=== PATIENT | male | born 1940 | race Caucasian/White ===

== ENCOUNTER 2016-07-04 07:43 | Inpatient (IN) | payer MEDICARE ==
[~2016-07-04] VITALS: Ht 177.8 cm; Wt 100.0 kg
[~2016-07-04 07:43] MED LIST: ATOR40TA16 PO; CART240C PO; CORE25TA PO; COZA25TA PO; FURO1TAB62 PO; GABA100C4 PO; LANTUS2P SQ; NOVOLOGP2 SQ; WARF-23 PO
[2016-07-04] MEDS ORDERED: METOPROLOL TARTRATE 25 MG TAB PO PRN ×2 (08:45→09:30)
[2016-07-04] MEDS ORDERED: SODIUM CHLORID 0.9% 500 ML IV SCH ×2 (08:45→09:30)
[2016-07-04] MEDS ORDERED: INSULIN HUMAN REGULAR 1,000 UNITS/10 ML VIAL SQ PRN ×2 (08:45→09:30)
[2016-07-04] MEDS ORDERED: LACTATED RINGER'S 1000 ML IV SCH (08:45)
[2016-07-04] MEDS ORDERED: ceFAZolin 1,000 MG/NS 100 ML IV SCH ×2 (08:45)
[2016-07-04 08:47] VITALS: BP 142/74; PULSE 62; RESP 22; TEMP 98; O2SAT 93
--- NOTE | 2016-07-04 08:59 | RADRPT ---
EXAM DATE/TIME: 07/04/2016 08:35 [place] COMPARISON: No previous studies available for comparison. INDICATIONS : Evaluate for pneumonia, pneumothorax, and communicable disease. Preop for popliteal bypass. MEDICAL HISTORY : Hypertension. Myocardial infarction. Diabetic. BPH. PVD. Hyperlipidemia. Afib. CAD. SURGICAL HISTORY : Tonsillectomy. Right hip arthroplasty. Left below knee amputation. Right pop posterior tibial dax stamosis stenosis. Right knee arthroplasty. ENCOUNTER: Initial ACUITY: 1 day PAIN SCORE: 0/10 LOCATION: Bilateral chest FINDINGS: A single portable frontal view the chest shows blunting of the costophrenic angles bilaterally with b ibasilar parenchymal opacities. Heart is at the upper limits of normal in terms of size. Aorta is stepan cified. Bony structures are unremarkable. CONCLUSION: Small bowel pleural effusions and bibasilar infiltrates. Pulmonary edema suspected. He Duran Jr., MD on July 04, 2016 at 8:56 Board Certified Radiologist. This report was verified electronically.
[2016-07-04] MEDS ORDERED: FUROSEMIDE 20 MG/2 ML VIAL ONE (09:08)
[2016-07-04 09:18] LABS: AUTOMATED NEUTROPHIL # 5.3 TH/MM3 (1.8-7.7); BASOPHIL # 0.1 TH/MM3 (0-0.2); BASOPHIL % 0.9 % (0.0-2.0); EOSINOPHIL # 0.2 TH/MM3 (0-0.4); HEMATOCRIT 31.9 % (39.0-51.0); HEMO FLAGS DIFF FINAL; LYMPH % 12.2 % (9.0-44.0); LYMPHOCYTE # 0.9 TH/MM3 (1.0-4.8); MEAN CELL VOLUME 97.8 FL (80.0-100.0); MEAN CORPUSCULAR HEMOGLOBIN 33.1 PG (27.0-34.0); MEAN CORPUSCULAR HGB CONC 33.8 % (32.0-36.0); MONO % 9.6 % (0.0-8.0); NEUT % 74.3 % (16.0-70.0); PLATELET COUNT 163 TH/MM3 (150-450); RED BLOOD COUNT 3.27 MIL/MM3 (4.50-5.90); RED CELL DISTRIBUTION WIDTH 15.3 % (11.6-17.2); WHITE BLOOD COUNT 7.2 TH/MM3 (4.0-11.0)
[2016-07-04] MEDS ORDERED: PROPOFOL 200 MG/20 ML AMP IV ONE (09:21)
[2016-07-04] MEDS: LACTATED RINGER'S 1000 ML IV SCH (09:24)
[2016-07-04 09:29] LABS: APTT (PATIENT) 34.3 SEC (24.3-30.1); INTERNATIONAL NORMALIZED RATIO 1.3 RATIO; PROTHROMBIN TIME - PATIENT 14.2 SEC (9.8-11.6)
[2016-07-04] MEDS ORDERED: FUROSEMIDE 20 MG/2 ML VIAL IV PUSH ONE (09:30)
[2016-07-04 09:40] LABS: BICARBONATE 29.8 MEQ/L (21.0-32.0); POTASSIUM 4.5 MEQ/L (3.5-5.1)
[2016-07-04] MEDS ORDERED: KETAMINE HCL 500 MG/5 ML VIAL ONE (10:45)
[2016-07-04] MEDS ORDERED: MIDAZOLAM HCL 2 MG/2 ML VIAL ONE (10:45)
[2016-07-04] MEDS ORDERED: HEPARIN SODIUM - IV 10,000 UNITS/10 ML VIAL ONE (10:59)
[2016-07-04] MEDS ORDERED: HEPARIN SODIUM - SQ 10,000 UNITS/ML VIAL ONE (10:59)
[2016-07-04] MEDS ORDERED: BUPIVACAINE/EPINEPHRINE 0.5% PF 30 ML VIAL ONE (10:59)
--- NOTE | 2016-07-04 11:20 | EKG ---
Date Performed: 07/04/2016 Time Performed: 08:31:00 PTAGE: 76 years EKG: ATRIAL FIBRILLATION ABNORMAL RHYTHM ECG PREVIOUS TRACING : 07/31/2007 23.25 DOCTOR: Jessee Mcfarlane Interpretating Date/Time 07/04/2016 11:18:01
--- NOTE | 2016-07-04 13:26 | MB ---
cc: TOMMY TRAN MD DATE OF CONSULTATION 07/04/2016 INDICATION Congestive heart failure. HISTORY OF PRESENT ILLNESS This is a very nice 76-year-old gentleman who I follow in the outpatient setting. He has a history of hypertension, hyperlipidemia, diabetes, peripheral arterial disease, chronic renal insufficiency, atrial fibrillation, COPD, diabetes who presents electively for anticipated angioplasty of a failing right pop-tib bypass. He has a left dqbay-xpd-hili amputation. He follows with Dr. Page in the outpatient setting. His is at the bedside to corroborate history. The patient notes that he has been having progressive shortness of breath over the course of the past few weeks. He has had significant weight gain, water retention, abdominal distension. He has been unable to lie flat at night. He has been sleeping in a chair. He did not sleep at all last night. He has not increased his diuretic dose. He has a history of SULFA ALLERGIES. He is intolerant of Lasix or Bumex. He is on torsemide as an outpatient. He has a prior echocardiogram, recently done in May which shows preserved ejection fractions and diastolic dysfunction, mild to maybe moderate valvular heart disease. His creatinine today was 2.74. As the procedure began and he was given the anesthetic, he desaturated rapidly and the procedure was cancelled. He is now in the Post-Anesthesia Care Unit, sitting up, more comfortable but still short of breath. He had his last stress test in 2016 in February which was unremarkable. PAST MEDICAL HISTORY 1. Chronic kidney disease. 2. Diabetes. 3. Hypertension. 4. Diastolic heart failure. 5. Peripheral vascular disease. 6. Atrial fibrillation. 7. Coronary disease. 8. COPD. 9. Left ngsrz-dcb-hcot amputation. 10. Prior PCI. 11. Right popliteal-tibial bypass. 12. Left popliteal-dorsalis pedis bypass. 13. Hernia repair. 14. Tonsillectomy. 15. Right hip arthroplasty. MEDICATIONS See med reconciliation. SOCIAL HISTORY Has a previous heavy alcohol use. Social drinker now. Denies any current tobacco use. Prior smoker. No drug use. REVIEW OF SYSTEMS A 12-point review of systems was performed and is negative unless otherwise noted in the History Of Present Illness. FAMILY HISTORY Unremarkable. No early coronary disease or sudden cardiac . PHYSICAL EXAMINATION VITAL SIGNS: Temperature is 97, heart rate 62, blood pressure 127/75 mmHg, sating 97% of 3 liters nasal cannula. IN GENERAL: He is alert, oriented x 3, in minimal distress. HEENT: Exam shows pupils reactive to light and accommodation. Extraocular movements are intact. NECK: Jugular veins are distended to the level of the mandible. LUNGS: Clear to auscultation bilaterally. Bibasilar crackles. CARDIOVASCULAR EXAM: Irregular regular rhythm, 1/6 systolic murmur. No rubs or gallops. ABDOMINAL EXAM: Nontender, distended. EXTREMITIES: 1+ edema. No clubbing or cyanosis. NEUROLOGIC: Cranial nerves intact. Motor and sensory grossly intact. LABORATORY DATA WBC 7.3, hemoglobin 10.8, platelet count 163. INR is 1.3. Sodium 140, potassium 4.5, BUN is 58, creatinine is 2.74. BNP is 300. CHEST X-RAY Bibasilar infiltrates/effusions, pulmonary edema. ASSESSMENT 1. Diastolic heart failure. 2. Chronic renal insufficiency. 3. Atrial fibrillation. 4. Diabetes. 5. Peripheral arterial disease. 6. Atrial fibrillation. PLAN The patient has significant weight gain, water retention with elevated jugular veins, distended abdomen, probable ascites, lower extremity edema. He is currently on diuretics as an outpatient but clearly has not had enough volume removed. His shortness of breath is more so from the kidneys than it is from his diastolic dysfunction. He has some mild to moderate valve disease but not enough to contribute to his decompensated state. His main issue is fluid removal. I am going to give him IV diuretic. Unfortunately, he is ALLERGIC TO SULFA, so we will use Ethacrynic acid IV. We will give an IV dose today, initiate an oral dose starting tomorrow. We will have to monitor his kidney function closely. It would probably be beneficial to get Nephrology involved. I think in the long run he is probably going to need hemodialysis for fluid removal at this rate. Once he is medically optimized, then we can consider proceeding forward with peripheral intervention with Dr. Page. We will continue his other cardiac meds. He will need to be admitted. I have discussed the case already with [facility] hospitalist, Dr. Mercer, who is going to come by and see him and plan for admission. MD TARUN Acosta/VALERIE /12:47 PM /1:00 PM MTDMathew
[2016-07-04] MEDS ORDERED: ETHACRYNATE SODIUM 50 MG VIAL IV PUSH ONE (13:30)
[2016-07-04] MEDS ORDERED: ETHACRYNATE SODIUM 50 MG VIAL IV ONE (13:30)
--- NOTE | 2016-07-04 16:16 | PD.CONS ---
HPI Service [facility] Hospitalists Consult Requested By Dr. Tj Page Reason for Consult Medical Management Primary Care Physician Billy Treviño Diagnoses: History of Present Illness Mr. Kruger is a pleasant 76 y/o WM with diabetes mellitus, type II, PVD and hx of left BKA, HTN, osteoarthritis, hyperlipidemia, paroxysmal atrial fibrillation on chronic anticoagulation with Coumadin, and CAD with hx of [place]. Pt was admitted to [facility] on 07/04/16 for elective CO2 angiography and potential endovascular intervention with Dr. Page for restenosis of the right popliteal anastomosis and potentially failing bypass graft. When the pt arrived today he reports that more recently he has been having progressive shortness of breath over the course of the past few weeks. He has had significant weight gain and has been unable to lie flat at night. He has been sleeping in a chair. Pt takes Torsemide 10mg po BID as an outpt as he has sulfa allergy and is intolerant to Lasix and Bumex. Previous 2D echo (06/13/16) noted preserved EF 55- 60%, grade 1 diastolic dysfunction, mild to moderate mitral regurg, and pulmonary HTN with RSVP 56mmHg. His creatinine today was 2.74 which isn't too far off from previous labs in May. Per report from the Client Support Administrator, the pt was taken to the OR for vascular intervention this morning and as the procedure began and he was given the anesthetic, he desaturated rapidly and the procedure was cancelled. Pt has been given Edecrin 80mg IV x one dose and will be continued on Edecrin 50mg po BID starting tomorrow. CXR indicated bilateral pleural effusions and pulmonary edema. [facility] hospitalist team has been consulted to help with medical management. Pt is seen in PACU. He had been on 6L via simple mask but currently is on 2-3L via NC. Review of Systems Constitutional: DENIES: Fever, Chills Respiratory: COMPLAINS OF: Shortness of breath Cardiovascular: COMPLAINS OF: Lower Extremity Edema, Orthopnea, DENIES: Chest pain, Palpitations Gastrointestinal: DENIES: Abdominal pain, Nausea, Vomiting Genitourinary: DENIES: Hematuria, Dysuria, Nocturia Musculoskeletal: DENIES: Joint pain Integumentary: DENIES: Rash Neurologic: DENIES: Headache Psychiatric: DENIES: Confusion Past Family Social History Past Medical History Peripheral vascular disease Diabetes mellitus, type II HTN Hyperlipidemia Paroxysmal atrial fibrillation on chronic anticoagulation with Coumadin Right LE common fem DVT, nonocclusive in 02/2016 CAD with hx of OK Anemia BPH Chronic diastolic CHF CKD, stage IV Hx of colon polyps Carotid artery stenosis GERD Osteoarthritis Primary open-angle glaucoma 2D echo (06/13/16) - EF 55-60% - Grade 1 diastolic dysfunction - LA mildly dilated - Mild to moderate mitral valve regurg - Aortic valve sclerosis - Moderate tricuspid regurg - Moderate pulmonary HTN with RSVP 56mmHg Past Surgical History Right total hip arthroplasty on 03/13/[address] Loyd Partial metatarsal resections, 2nd and 3rd metatarsals, right foot in 2014 Right popliteal-posterior tibial bypass in 2005 Orbital arthrectomy right posterior tibial anastomotic stenosis in 08/2013 Left BKA in 2007 Left popliteal to dorsalis pedis bypass graft, left popliteal to posterior tibial bypass using in situ greater saphenous vein in 2007 Hernia repair Right knee arthroplasty Left knee tendon repair Scrotal hernia repair Tonsillectomy Reported Medications -Gabapentin 200 Mg PO TID PRN -Warfarin 5 Mg Tab 5 Mg PO DAILY -Atorvastatin 40 Mg PO HS -Novolog Inj 12-15 Units SQ TID -Lantus Inj 10-12 Units SQ HS -Cartia Xt (Diltiazem ER 24 HR) 240 Mg PO DAILY -Cozaar 25 Mg PO HS -Coreg 25 Mg PO BID --Torsemide 10mg BID --Potassium 10meq po DAILY Allergies: Coded Allergies: Invanz (Verified Allergy, Severe, SWELLING, 07/04/16) Sulfa (Verified Allergy, Severe, EDEMA,RASH, 07/04/16) Family History Mother at age 58 from colon cancer Father with hx of prostate cancer Social History Hx of heavy alcohol use, none for the last 6-7 years Hx of tobacco use Pt lives locally with his spouse 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 HEENT: Atraumatic. Normocephalic. No temporal or scalp tenderness. No scleral icterus. Airway patent. NECK: Trachea midline, supple, nontender CARDIO: Irregularly irregular RESP: Decreased breath sounds, bibasilar crackles ABD: +BS, soft, non-tender, nondistended. EXT: Left BKA NEURO: Awake and alert. Motor and sensory grossly within normal limits. Normal speech. Laboratory Laboratory Tests Test 07/04/16 09:00 White Blood Count 7.2 Red Blood Count 3.27 Hemoglobin 10.8 Hematocrit 31.9 Mean Corpuscular Volume 97.8 Mean Corpuscular Hemoglobin 33.1 Mean Corpuscular Hemoglobin 33.8 Concent Red Cell Distribution Width 15.3 Platelet Count 163 Mean Platelet Volume 9.1 Neutrophils (%) (Auto) 74.3 Lymphocytes (%) (Auto) 12.2 Monocytes (%) (Auto) 9.6 Eosinophils (%) (Auto) 3.0 Basophils (%) (Auto) 0.9 Neutrophils # (Auto) 5.3 Lymphocytes # (Auto) 0.9 Monocytes # (Auto) 0.7 Eosinophils # (Auto) 0.2 Basophils # (Auto) 0.1 CBC Comment DIFF FINAL Differential Comment Prothrombin Time 14.2 Prothromb Time International 1.3 Ratio Activated Partial 34.3 Thromboplast Time Sodium Level 140 Potassium Level 4.5 Chloride Level 105 Carbon Dioxide Level 29.8 Anion Gap 5 Blood Urea Nitrogen 58 Creatinine 2.74 Estimat Glomerular Filtration 23 Rate Random Glucose 118 Calcium Level 8.5 B-Type Natriuretic Peptide 300 Blood Type A POSITIVE Antibody Screen NEGATIVE Result Diagram: 07/04/16 0900 07/04/16 0900 Imaging Last Impressions Chest X-Ray 07/04/16 0000 Signed Impressions: Service Date/Time: June 08:35 - CONCLUSION: Small bowel pleural effusions and bibasilar infiltrates. Pulmonary edema suspected. He Duran Jr., MD Assessment and Plan Problem List: (1) Diastolic dysfunction Status: Chronic Plan: - Pt was admitted to [facility] on 07/04/16 for elective CO2 angiography and potential endovascular intervention with Dr. Page but presented in an apparent decompensated heart failure with weight gain, increased LE edema, increased SOB, and orthopnea. - Pt takes Torsemide 10mg BID and potassium as an outpt due to intolerance to Lasix and Bumex - Cardiology is following - Pt has been given Edecrin 80mg IV x one dose and will be continued on Edecrin 50mg po BID starting tomorrow. - CXR indicated bilateral pleural effusions and pulmonary edema. - He had been on 6L via simple mask but currently is on 2-3L via NC. - Previous outpt 2D echo reviewed - Monitor I&Os - CXR in AM - Supportive care - DVT prophylaxis with Heparin 5000units Q8H as pt has subtherapeutic INR with hx of DVT (2) PVD (peripheral vascular disease) Status: Chronic Plan: - Pt was admitted for elective CO2 angiography and potential endovascular intervention with Dr. Page for restenosis of the right popliteal anastomosis and potentially failing bypass graft. - This procedure has been held until more medically stable. - Dr. Page managing. (3) Paroxysmal atrial fibrillation Status: Chronic Plan: - Pt is on Coreg 25mg po BID, Diltazem 240mg po daily and Coumadin 5mg po daily - INR subtherapeutic at admission at 1.3 - Lovenox - Coumadin on hold. (4) HTN (hypertension) Status: Chronic Plan: - Cont. home meds, Cartia Xt 240 Mg PO DAILY, Cozaar 25 Mg PO HS - Monitor (5) CKD (chronic kidney disease) stage 4, GFR 15-29 ml/min Status: Chronic Plan: - Outpt GFR has been ranging between 22-29 since 12/2015 - Nephrology is consulted (6) DVT (deep venous thrombosis) Status: Chronic Plan: - Pt had a previous Right LE common fem DVT, nonocclusive in 02/2016 - Heparin 5000 units Q8H (7) BPH (benign prostatic hypertrophy) with urinary retention Status: Chronic (8) Hyperlipidemia Status: Chronic Plan: - Cont. home meds (9) Diabetes mellitus Status: Chronic Plan: - NovoLog SSI - Accu checks Assessment and Plan Patient examined. Assessment and plan formulated with Radha Clark PA-C. I agree with the above. Problem Qualifiers (1) Diabetes mellitus: Qualified Code: E11.8 - Type 2 diabetes mellitus with complication, with long- term current use of insulin Radha Clark Jul 04, 2016 16:16 Jeremi Mercer DO Jul 07, 2016 07:17
[2016-07-04] MEDS: HEPARIN SODIUM - SQ 10,000 UNITS/ML VIAL SQ SCH (17:00)
[2016-07-04] MEDS ORDERED: TORS10TA2 PO (17:08)
[2016-07-04] MEDS ORDERED: GLUCAGON 1 MG/ML VIAL OTHER PRN (17:30)
[2016-07-04] MEDS ORDERED: DEXTROSE 50% IN WATER 50 ML VIAL(D50) IV PUSH PRN (17:30)
--- NOTE | 2016-07-04 19:49 | PD.CONS ---
HPI Consult Requested By Reason for Consult Chronic kidney disease stage IV. Acute renal insufficiency? Primary Care Physician Billy Treviño History of Present Illness This patient is a 76-year-old male with a known history of chronic kidney disease which usually ranges between CKD 3 and CKD 4. Patient had a hospitalization last year February which was associated with acute renal insufficiency. His serum creatinine level codi to 3.04 during that hospitalization. It was felt that it may have been related to vancomycin exposure with or without dehydration. Subsequent follow-up in the office revealed a creatinine back at baseline at 2.06 with an estimated GFR of March 28, 2016. Patient now presents with a history of increasing exertional dyspnea and a history suggestive of paroxysmal nocturnal dyspnea with orthopnea about 1-2 weeks prior to this admission. He would occasionally take an extra torsemide but did not contact my office. He came in for an elective CO2 angiogram of the right lower extremity with plan for possible angioplasty of a stenosis of her previous popliteal anastomosis. Unfortunately the procedure had to be canceled due to the patient developing respiratory distress with desaturation. Patient also apparently has a history of rash associated with furosemide and bumetanide but surprisingly not by mouth torsemide. He was given ethacrynic acid with improvement in symptomatology. His creatinine level however today was noted to have deteriorated to a level of 2.74 with an estimated GFR of 23. Patient denies noncompliance with dietary salt restriction and has not been using NSAIDs for analgesia. Does complain of nocturia and double voiding. Does have a remote history of bladder outlet obstruction back in 2010. Review of Systems Constitutional: COMPLAINS OF: Fatigue, DENIES: Diaphoretic episodes, Fever, Weight gain, Weight loss, Chills, Dizziness, Change in appetite, Night Sweats Endocrine: DENIES: Polydipsia, Polyuria, Polyphagia Respiratory: COMPLAINS OF: Shortness of breath, DENIES: Apneas, Cough, Snoring , Wheezing, Hemoptysis, Sputum production Cardiovascular: COMPLAINS OF: Dyspnea on Exertion, Lower Extremity Edema, Orthopnea, DENIES: Chest pain, Palpitations, Syncope, PND, Claudication Gastrointestinal: DENIES: Abdominal pain, Black stools, Bloody stools, Constipation, Diarrhea, Nausea, Vomiting, Difficulty Swallowing, Anorexia Genitourinary: COMPLAINS OF: Urinary frequency, Nocturia, DENIES: Sexual dysfunction, Urinary incontinence, Urgency, Hematuria, Dysuria, Penile Discharge , Testicular Pain, Testicular Swelling Musculoskeletal: COMPLAINS OF: Joint pain, DENIES: Muscle aches, Stiffness, Joint Swelling, Back pain, Neck pain Immunologic/allergic: DENIES: Eczema, Urticaria Past Family Social History Allergies: Coded Allergies: Invanz (Verified Allergy, Severe, SWELLING, 07/04/16) Sulfa (Verified Allergy, Severe, EDEMA,RASH, 07/04/16) Past Medical History 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 Hypertension Diabetes mellitus type 2. Peripheral arterial disease. CHF. Previous acute renal insufficiency February 2016. Possibly related to vancomycin. History of bladder outlet obstruction 2010. Paroxysmal atrial fibrillation. Peripheral arterial disease. Past Surgical History Left BKA. PTCA. Bypass right lower extremity. Reported Medications Reported Meds & Active Scripts Active Reported Torsemide 10 Mg Tab 10 Mg PO BID Gabapentin 100 Mg Cap 200 Mg PO TID PRN Warfarin 5 Mg Tab 5 Mg PO DAILY Atorvastatin (Atorvastatin Calcium) 40 Mg Tab 40 Mg PO HS Novolog Inj (Insulin Aspart) 1,000 Unit/10 Ml Vial 12-15 Units SQ TID Lantus Inj (Insulin Glargine) 1,000 Unit/10 Ml Vial 10-12 Units SQ HS Cartia Xt (Diltiazem ER 24 HR) 240 Mg Caper 240 Mg PO DAILY Cozaar (Losartan Potassium) 25 Mg Tab 25 Mg PO HS Coreg (Carvedilol) 25 Mg Tab 25 Mg PO BID Active Ordered Medications Current Medications Cefazolin Sodium 1000 mg/Sodium Chloride 100 ml @ 200 mls/hr UNSCH X1 IV Last administered on 07/04/16 09:22; Start 07/04/16 at 08:45; Stop 07/04/16 at 14:45; Status DC Lactated Ringer's 1,000 ml @ 30 mls/hr Q24H IV Last administered on 07/04/16 09:00; Start 07/04/16 at 08:45 Sodium Chloride (NS 500 ml Inj) 500 ml @ 30 mls/hr [id number] IV ; Start 07/04/16 at 08:45; Stop 07/05/16 at 08:44 Insulin Human Regular (NovoLIN R INJ) See Protocol Table ... UNSCH X1 PRN SQ SEE PROTOCOL; Start 07/04/16 at 08:45; Stop 07/04/16 at 17:05; Status DC Metoprolol Tartrate (Lopressor) 25 mg UNSCH X1 PRN PO SEE LABEL COMMENTS; Start 07/04/16 at 08:45; Stop 07/05/16 at 08:44 Furosemide (Lasix Inj) 20 mg STK-MED ONCE .ROUTE ; Start 07/04/16 at 09:08; Stop 07/04/16 at 09:09; Status DC Furosemide 20 mg 20 mg ONCE ONCE IV PUSH Last administered on 07/04/16t 09:20 ; Start 07/04/16 at 09:30; Stop 07/04/16 at 09:31; Status DC Lactated Ringer's 1,000 ml @ 30 mls/hr Q24H IV ; Start 07/04/16 at 09:30 Sodium Chloride (NS 500 ml Inj) 500 ml @ 30 mls/hr [id number] IV ; Start 07/04/16 at 09:30; Stop 07/05/16 at 09:29 Insulin Human Regular (NovoLIN R INJ) See Protocol Table ... UNSCH X1 PRN SQ SEE PROTOCOL; Start 07/04/16 at 09:30; Stop 07/04/16 at 17:05; Status DC Metoprolol Tartrate (Lopressor) 25 mg UNSCH X1 PRN PO SEE LABEL COMMENTS; Start 07/04/16 at 09:30; Stop 07/05/16 at 09:29 Midazolam HCl (Versed Inj) 2 mg STK-MED ONCE .ROUTE ; Start 07/04/16 at 10:45; Stop 07/04/16 at 10:46; Status DC Fentanyl Citrate (fentaNYL INJ) 100 mcg STK-MED ONCE .ROUTE ; Start 07/04/16 at 10:45; Stop 07/04/16 at 10:46; Status DC Ketamine HCl (Ketalar Inj) 500 mg STK-MED ONCE .ROUTE ; Start 07/04/16 at 10:45 ; Stop 07/04/16 at 10:46; Status DC Bupivacaine HCl/ Epinephrine Bitart (Sensorcaine-Epinephrine Pf 0.5% Inj) 30 ml STK-MED ONCE .ROUTE ; Start 07/04/16 at 10:59; Stop 07/04/16 at 11:00; Status DC Heparin Sodium (Porcine) (Heparin Inj) 10,000 units STK-MED ONCE .ROUTE ; Start 07/04/16 at 10:59; Stop 07/04/16 at 11:00; Status DC Heparin Sodium (Porcine) (Heparin Inj) 10,000 units STK-MED ONCE .ROUTE ; Start 07/04/16 at 10:59; Stop 07/04/16 at 11:00; Status DC Ethacrynate Sodium (Edecrin Inj) 80 mg ONCE ONCE IV PUSH ; Start 07/04/16 at 13 :30; Stop 07/04/16 at 13:30; Status DC Ethacrynic Acid (Edecrin) 50 mg BID PO ; Start 07/05/16 at 09:00 Ethacrynate Sodium (Edecrin Inj) 80 mg ONCE ONCE IV Last administered on t 13:58; Start 07/04/16 at 13:30; Stop 07/04/16 at 13:31; Status DC Heparin Sodium (Porcine) (Heparin Inj) 5,000 units Q8H SQ Last administered on 07/04/16t 17:00; Start 07/04/16 at 17:00 Insulin Aspart (NovoLOG SUPPLEMENTAL SCALE) 1 ACHS SLIDING SCALE SQ ; Start at 21:00 Atorvastatin Calcium (Lipitor) 40 mg HS PO ; Start 07/04/16 at 21:00 Carvedilol (Coreg) 25 mg BID PO ; Start 07/04/16 at 21:00; Stop 07/04/16 at 21: 00; Status DC Diltiazem HCl (Cardizem Cd) 240 mg DAILY PO ; Start 07/05/16 at 09:00 Losartan Potassium (Cozaar) 25 mg HS PO ; Start 07/04/16 at 21:00 Dextrose (D50w (Vial) Inj) 25 ml UNSCH PRN IV PUSH HYPOGLYCEMIA - SEE COMMENTS ; Start 07/04/16 at 17:30 Glucagon (Glucagon Inj) 1 mg UNSCH PRN OTHER HYPOGLYCEMIA-SEE COMMENTS; Start 07/04/16 at 17:30 Insulin Detemir (Levemir Inj) 10 units HS SQ ; Start 07/04/16 at 21:00 Gabapentin (Neurontin) 200 mg TID PRN PO PAIN SCALE 1 TO 10; Start 07/04/16 at 18:00 Family History Please see H&P. Noncontributory to current complaint. Social History Please see H&P. Noncontributory to current complaint. Physical Exam Vital Signs Vital Signs Date Time Temp Pulse Resp B/P Pulse Ox O2 Delivery O2 Flow Rate FiO2 07/04/16 16:00 98.2 56 15 156/86 95 Nasal Cannula 2 07/04/16 13:00 66 13 132/79 97 Nasal Cannula 2 07/04/16 12:45 53 13 138/71 97 Nasal Cannula 2 07/04/16 12:30 56 14 127/75 97 Nasal Cannula 3 07/04/16 12:15 60 14 123/72 95 Nasal Cannula 3 07/04/16 12:00 97.4 62 14 121/69 96 Simple Mask 6 07/04/16 08:47 98.0 62 22 142/74 93 Laboratory Laboratory Tests Test 07/04/16 09:00 White Blood Count 7.2 Red Blood Count 3.27 Hemoglobin 10.8 Hematocrit 31.9 Mean Corpuscular Volume 97.8 Mean Corpuscular Hemoglobin 33.1 Mean Corpuscular Hemoglobin 33.8 Concent Red Cell Distribution Width 15.3 Platelet Count 163 Mean Platelet Volume 9.1 Neutrophils (%) (Auto) 74.3 Lymphocytes (%) (Auto) 12.2 Monocytes (%) (Auto) 9.6 Eosinophils (%) (Auto) 3.0 Basophils (%) (Auto) 0.9 Neutrophils # (Auto) 5.3 Lymphocytes # (Auto) 0.9 Monocytes # (Auto) 0.7 Eosinophils # (Auto) 0.2 Basophils # (Auto) 0.1 CBC Comment DIFF FINAL Differential Comment Prothrombin Time 14.2 Prothromb Time International 1.3 Ratio Activated Partial 34.3 Thromboplast Time Sodium Level 140 Potassium Level 4.5 Chloride Level 105 Carbon Dioxide Level 29.8 Anion Gap 5 Blood Urea Nitrogen 58 Creatinine 2.74 Estimat Glomerular Filtration 23 Rate Random Glucose 118 Calcium Level 8.5 B-Type Natriuretic Peptide 300 Blood Type A POSITIVE Antibody Screen NEGATIVE Result Diagram: 07/04/16 0900 07/04/16 0900 Imaging Last 48 hours Impressions Chest X-Ray 07/04/16 0000 Signed Impressions: Service Date/Time: June 08:35 - CONCLUSION: Small bowel pleural effusions and bibasilar infiltrates. Pulmonary edema suspected. He Duran Jr., MD Assessment and Plan Problem List: (1) Acute renal insufficiency Plan: Presently uncertain if deterioration in patient's renal indices is secondary to cardiac decompensation versus progression of his intrinsic renal disease. Patient does require diuresis at this time however given cardiac decompensation. I advised the patient and who apparently are concerned with diuretics "injuring the kidney" that if there is evidence of cardiac decompensation regardless of the status of his renal function diuresis would be indicated to avoid respiratory insufficiency. They also advised the deterioration in renal indices and implications of same. Patient does have symptoms suggestive of prostatism also. I will order a bladder ultrasound and renal ultrasound to exclude significant obstruction. Diuresis with torsemide or ethacrynic acid as indicated given allergy to furosemide and bumetanide. Medications should be adjusted for the patient's estimated GFR if clinically indicated. Avoid agents with significant potential for nephrotoxicity possible including NSAIDs for analgesia, iodine contrast agents. Gadolinium is contraindicated if the GFR is below 30. (2) CKD (chronic kidney disease) stage 4, GFR 15-29 ml/min Plan: Remains be determined what the patient's baseline renal function will be at this time. If there has been progression of intrinsic renal disease I agree that the patient will likely require dialytic support in the not too distant future. (3) Diastolic dysfunction (4) HTN (hypertension) (5) PVD (peripheral vascular disease) Plan: Management per Dr. Page. (6) Diabetes mellitus Plan: Management per primary care physician. Pankaj Glover MD Jul 04, 2016 19:49
[2016-07-04 20:45] VITALS: BP 176/87; PULSE 64; RESP 18; TEMP 98.3; O2SAT 94
[2016-07-04 21:00] VITALS: PULSE 66
[2016-07-04] MEDS ORDERED: LOSARTAN 25 MG TAB PO SCH (21:00)
[2016-07-04] MEDS ORDERED: CARVEDILOL 12.5 MG TAB PO SCH (21:00)
[2016-07-04] MEDS: ATORVASTATIN 40 MG TAB PO SCH (21:17)
[2016-07-04] MEDS: INSULIN ASPART SUPPLEMENTAL SCALE SQ SCH (21:18)
[2016-07-04] MEDS: INSULIN DETEMIR 100 UNITS/ML VIAL SQ SCH (21:18)
[2016-07-04] MEDS ORDERED: DO NOT ADM ANY ANTICOAGULANT DRUGS XX PRN (21:30)
[2016-07-04 22:00] VITALS: PULSE 81
[2016-07-04 23:00] VITALS: BP 165/84; PULSE 73; RESP 16; TEMP 98.2; O2SAT 93
[2016-07-04] MEDS: GABAPENTIN 100 MG CAP PO PRN (23:11)
--- NOTE | 2016-07-04 23:19 | RADRPT ---
EXAM DATE/TIME: 07/04/2016 22:05 [facility] COMPARISON: US KIDNEY/RENAL/BLADDER, March 18, 2016, 7:37. INDICATIONS : Obstruction. MEDICAL HISTORY : Hypertension. Compression fracture. Hypercholesterolemia. Diabetes. Renal disease. TIA. SURGICAL HISTORY : Angioplasty. Endarterectomy. Right hip replacement. Repair scrotal hernia. ENCOUNTER: Subsequent ACUITY: 1 day PAIN SCORE: 7/10 LOCATION: Bilateral flank MEASUREMENTS: RIGHT KIDNEY: 11.9 x 7.0 x 5.8 cm LEFT KIDNEY: 13.3 x 6.4 x 5.2 cm FINDINGS: Ultrasound of the kidneys demonstrate normal size shape and echogenicity. No hydronephrosis or mass l esions are identified. There are simple cysts bilaterally the largest measuring 1.9 cm in the upper p ole on the right and 3 cm in the midpole of the left. The bladder appears normal. No wall thickening or intraluminal masses are identified. CONCLUSION: 1. No evidence of obstruction. Bilateral renal cysts Mihai Thomas MD on July 04, 2016 at 23:16 Board Certified Radiologist. This report was verified electronically.
[2016-07-05] VITALS (14 sets, daily range): BP systolic 150–175; BP diastolic 72–83; PULSE 62–81; RESP 16–18; TEMP 97.9–98.5; O2SAT 93–96
[2016-07-05] MEDS: HEPARIN SODIUM - SQ 10,000 UNITS/ML VIAL SQ SCH ×3 (01:12→17:16)
[2016-07-05 02:55] LABS: BLOOD, URINE NEG (NEG); GLUCOSE,URINE NEG (NEG); KETONE, URINE NEG (NEG); NITRITE,URINE NEG (NEG); URINE COLOR LIGHT-YELLOW (YELLW/STRAW)
[2016-07-05 02:58] LABS: MUCUS URINE FEW /lpf (OCC); SQUAMOUS EPITHELIAL CELL URINE <1 /hpf (0-5)
[2016-07-05 05:38] LABS: AUTOMATED NEUTROPHIL # 6.3 TH/MM3 (1.8-7.7); BASOPHIL # 0.1 TH/MM3 (0-0.2); BASOPHIL % 0.8 % (0.0-2.0); EOSINOPHIL # 0.2 TH/MM3 (0-0.4); EOSINOPHIL % 2.8 % (0.0-4.0); HEMATOCRIT 30.8 % (39.0-51.0); HEMO FLAGS DIFF FINAL; LYMPH % 9.4 % (9.0-44.0); LYMPHOCYTE # 0.7 TH/MM3 (1.0-4.8); MEAN CELL VOLUME 97.8 FL (80.0-100.0); MEAN CORPUSCULAR HEMOGLOBIN 32.9 PG (27.0-34.0); MEAN CORPUSCULAR HGB CONC 33.7 % (32.0-36.0); MONO % 8.5 % (0.0-8.0); NEUT % 78.5 % (16.0-70.0); PLATELET COUNT 157 TH/MM3 (150-450); RED BLOOD COUNT 3.15 MIL/MM3 (4.50-5.90); RED CELL DISTRIBUTION WIDTH 15.5 % (11.6-17.2)
[2016-07-05] MEDS: INSULIN ASPART SUPPLEMENTAL SCALE SQ SCH ×4 (06:10→21:00)
[2016-07-05 06:12] LABS: MAGNESIUM 2.4 MG/DL (1.5-2.5)
--- NOTE | 2016-07-05 06:58 | RADRPT ---
EXAM DATE/TIME: 07/05/2016 05:51 [facility] COMPARISON: CHEST SINGLE AP, July 04, 2016, 8:35. INDICATIONS : Shortness of breath. MEDICAL HISTORY : Hypertension. Myocardial infarction. Diabetic. BPH. PVD. Hyperlipidemia. Afib. CAD. SURGICAL HISTORY : None. ENCOUNTER: Subsequent ACUITY: 2 days PAIN SCORE: 0/10 LOCATION: chest FINDINGS: The cardiac silhouette is enlarged in transverse diameter. There is prominence of the aortic knob is with calcification characteristic of atherosclerotic vascular disease. There is prominence of the naresh tral pulmonary vasculature with indistinct vascular margins compatible with vascular congestion but n o evidence of overt failure. The findings are improved when compared with the prior exam. CONCLUSION: 1. Cardiomegaly and findings of vascular congestion without overt failure. The findings are improved when compared with the prior exam. Mihai Thomas MD on July 05, 2016 at 6:56 Board Certified Radiologist. This report was verified electronically.
--- NOTE | 2016-07-05 07:39 | PD.CARD.PN ---
Subjective Subjective Remarks slept well and breathing improved (Erik Oneal) Objective Vital Signs / I&O Vital Signs Date Time Temp Pulse Resp B/P Pulse Ox O2 Delivery O2 Flow Rate FiO2 07/05/16 06:02 68 07/05/16 05:00 69 07/05/16 04:00 65 07/05/16 03:30 98.2 65 16 168/81 96 07/05/16 03:00 62 07/05/16 02:00 77 07/05/16 01:30 159/77 07/05/16 01:00 62 07/05/16 00:00 160/83 07/05/16 00:00 63 07/04/16 23:00 98.2 73 16 165/84 93 07/04/16 23:00 73 07/04/16 22:00 81 07/04/16 21:00 66 07/04/16 20:45 98.3 64 18 176/87 94 07/04/16 20:30 97.8 60 15 165/92 97 Nasal Cannula 2 07/04/16 19:00 63 15 163/95 96 Nasal Cannula 2 07/04/16 18:10 64 15 162/89 96 Nasal Cannula 2 07/04/16 16:00 98.2 56 15 156/86 95 Nasal Cannula 2 07/04/16 13:00 66 13 132/79 97 Nasal Cannula 2 07/04/16 12:45 53 13 138/71 97 Nasal Cannula 2 07/04/16 12:30 56 14 127/75 97 Nasal Cannula 3 07/04/16 12:15 60 14 123/72 95 Nasal Cannula 3 07/04/16 12:00 97.4 62 14 121/69 96 Simple Mask 6 07/04/16 08:47 98.0 62 22 142/74 93 I/O 07/04/16 07/04/16 07/04/16 07/05/16 07/05/16 07/05/16 07:00 15:00 23:00 07:00 15:00 23:00 Intake Total 300 ml 560 ml 480 ml Output Total 1250 ml 905 ml Balance 300 ml -690 ml -425 ml Intake Oral 560 ml 480 ml IV Total 0 ml Other 300 ml Output Urine Total 1250 ml 905 ml # Voids 3 # Bowel Movements 0 Physical Exam GENERAL: Well-nourished, well-developed patient in no apparent distress. NECK: No JVD. No carotid bruit. CARDIOVASCULAR: Regular rate and rhythm. S1/S2 no murmur, rub, or gallop. RESPIRATORY: No accessory muscle use. rales bilateral bases to auscultation. Breath sounds equal bilaterally. GASTROINTESTINAL: Abdomen soft, non-tender, nondistended. MUSCULOSKELETAL: Extremities without clubbing, cyanosis, or edema. Laboratory Laboratory Tests Test 07/04/16 07/05/16 07/05/16 09:00 01:20 04:45 White Blood Count 7.2 TH/MM3 8.0 TH/MM3 Red Blood Count 3.27 MIL/MM3 3.15 MIL/MM3 Hemoglobin 10.8 GM/DL 10.4 GM/DL Hematocrit 31.9 % 30.8 % Mean Corpuscular Volume 97.8 FL 97.8 FL Mean Corpuscular Hemoglobin 33.1 PG 32.9 PG Mean Corpuscular Hemoglobin 33.8 % 33.7 % Concent Red Cell Distribution Width 15.3 % 15.5 % Platelet Count 163 TH/MM3 157 TH/MM3 Mean Platelet Volume 9.1 FL 9.2 FL Neutrophils (%) (Auto) 74.3 % 78.5 % Lymphocytes (%) (Auto) 12.2 % 9.4 % Monocytes (%) (Auto) 9.6 % 8.5 % Eosinophils (%) (Auto) 3.0 % 2.8 % Basophils (%) (Auto) 0.9 % 0.8 % Neutrophils # (Auto) 5.3 TH/MM3 6.3 TH/MM3 Lymphocytes # (Auto) 0.9 TH/MM3 0.7 TH/MM3 Monocytes # (Auto) 0.7 TH/MM3 0.7 TH/MM3 Eosinophils # (Auto) 0.2 TH/MM3 0.2 TH/MM3 Basophils # (Auto) 0.1 TH/MM3 0.1 TH/MM3 CBC Comment DIFF FINAL DIFF FINAL Differential Comment Prothrombin Time 14.2 SEC Prothromb Time International 1.3 RATIO Ratio Activated Partial 34.3 SEC Thromboplast Time Sodium Level 140 MEQ/L 141 MEQ/L Potassium Level 4.5 MEQ/L 4.0 MEQ/L Chloride Level 105 MEQ/L 103 MEQ/L Carbon Dioxide Level 29.8 MEQ/L 30.0 MEQ/L Anion Gap 5 MEQ/L 8 MEQ/L Blood Urea Nitrogen 58 MG/DL 53 MG/DL Creatinine 2.74 MG/DL 2.46 MG/DL Estimat Glomerular Filtration 23 ML/MIN 26 ML/MIN Rate Random Glucose 118 MG/DL 70 MG/DL Calcium Level 8.5 MG/DL 8.5 MG/DL B-Type Natriuretic Peptide 300 PG/ML Blood Type A POSITIVE Antibody Screen NEGATIVE Urine Color LIGHT-YELLOW Urine Turbidity CLEAR Urine pH 7.0 Urine Specific [place] 1.011 Urine Protein NEG mg/dL Urine Glucose (UA) NEG mg/dL Urine Ketones NEG mg/dL Urine Occult Blood NEG Urine Nitrite NEG Urine Bilirubin NEG Urine Urobilinogen LESS THAN 2.0 MG/DL Urine Leukocyte Esterase TRACE Urine RBC 1 /hpf Urine WBC 2 /hpf Urine Squamous Epithelial <1 /hpf Cells Urine Mucus FEW /lpf Magnesium Level 2.4 MG/DL 25-Hydroxy Vitamin D Total 22.9 ng/ML Parathyroid Hormone (Intact) 97.2 PG/ML (Erik Oneal) Assessment and Plan Problem List: (1) Acute renal insufficiency (2) Diastolic dysfunction Assessment and Plan He continues to have signs of fluid overload so we will continue diuresis Is blood pressure is high and for this we will maximized the dose of diltiazem His renal function is stable (Erik Oneal) Assessment and Plan symptomatically improving. continue diuretics per nephrology. hold BB and CCB for now secondary to bradycardia upon arrival. may consider slow addition of ccb at 120 or 240 mg as HR increases, if necessary. will need to discuss disposition with Dr. Page and resuming anticoagulation strategy, depending upon timing of planned intervention. (Jessee Mcfarlane MD) Erik Oneal Jul 05, 2016 07:38 Jessee Mcfarlane MD Jul 05, 2016 13:09
[2016-07-05] MEDS ORDERED: DILTIAZEM-CD 180 MG CAP ER PO SCH (09:00)
[2016-07-05] MEDS ORDERED: DILTIAZEM-CD 240 MG CAP ER PO SCH (09:00)
[2016-07-05] MEDS: LACTATED RINGER'S 1000 ML IV SCH (09:30)
--- NOTE | 2016-07-05 09:42 | HHI.PR ---
Subjective Remarks Pt is more comfortable today. SOB has improved. Objective Vitals Vital Signs Date Time Temp Pulse Resp B/P Pulse Ox O2 Delivery O2 Flow Rate FiO2 07/05/16 07:46 95 21 07/05/16 07:45 65 07/05/16 07:45 98.5 65 18 150/72 93 07/05/16 06:02 68 07/05/16 05:00 69 07/05/16 04:00 65 07/05/16 03:30 98.2 65 16 168/81 96 07/05/16 03:00 62 07/05/16 02:00 77 07/05/16 01:30 159/77 07/05/16 01:00 62 07/05/16 00:00 160/83 07/05/16 00:00 63 07/04/16 23:00 98.2 73 16 165/84 93 07/04/16 23:00 73 07/04/16 22:00 81 07/04/16 21:00 66 07/04/16 20:45 98.3 64 18 176/87 94 07/04/16 20:30 97.8 60 15 165/92 97 Nasal Cannula 2 07/04/16 19:00 63 15 163/95 96 Nasal Cannula 2 07/04/16 18:10 64 15 162/89 96 Nasal Cannula 2 07/04/16 16:00 98.2 56 15 156/86 95 Nasal Cannula 2 07/04/16 13:00 66 13 132/79 97 Nasal Cannula 2 07/04/16 12:45 53 13 138/71 97 Nasal Cannula 2 07/04/16 12:30 56 14 127/75 97 Nasal Cannula 3 07/04/16 12:15 60 14 123/72 95 Nasal Cannula 3 07/04/16 12:00 97.4 62 14 121/69 96 Simple Mask 6 07/04/16 07/04/16 07/05/16 14:59 22:59 06:59 Intake Total 300 ml 560 ml 480 ml Output Total 1250 ml 905 ml Balance 300 ml -690 ml -425 ml Intake Oral 560 ml 480 ml IV Total 0 ml Other 300 ml Output Urine Total 1250 ml 905 ml # Voids 3 # Bowel Movements 0 Result Diagram: 07/05/165 07/05/16 0445 Imaging Last Impressions Chest X-Ray 07/05/16 0600 Signed Impressions: Service Date/Time: Tuesday, July 05, 2016 05:51 - CONCLUSION: 1. Cardiomegaly and findings of vascular congestion without overt failure. The findings are improved when compared with the prior exam. Mihai Thomas MD Renal Ultrasound 07/04/16 0000 Signed Impressions: Service Date/Time: June 22:05 - CONCLUSION: 1. No evidence of obstruction. Bilateral renal cysts Mihai Thomas MD Objective Remarks GENERAL: This is a well-nourished, well-developed patient, in no apparent distress. CARDIOVASCULAR: Regular rate and rhythm without murmurs, gallops, or rubs. RESPIRATORY: Clear to auscultation. Breath sounds equal bilaterally. No wheezes , rales, or rhonchi. GASTROINTESTINAL: Abdomen soft, non-tender, nondistended. Normal active bowel sounds MUSCULOSKELETAL: Extremities without clubbing, cyanosis, or edema. NEURO: Alert & Oriented x4 to person, place, time, situation. Moves all ext x4 A/P Problem List: (1) Diastolic dysfunction Status: Chronic Plan: - comgmt with Cardiology & Nephrology - Pt was admitted to [facility] on 07/04/16 for elective CO2 angiography and potential endovascular intervention with Dr. Page but presented in an apparent decompensated heart failure with weight gain, increased LE edema, increased SOB, and orthopnea. - Pt takes Torsemide 10mg BID and potassium as an outpt due to intolerance to Lasix and Bumex - Pt has been given Edecrin 80mg IV x one dose - Edecrin 50mg BID - upon discharge will resume torsemide 20mg AM & 10mg PM - CXR (07/05/16) --> finding of CHF improved, decreased bibasilar infiltrates - Pt is tolerating RA - Repeat CXR in AM - Repeat BMP, BNP, Mag, Phos in AM - Case d/w Dr. Mcfarlane (07/05/16) - Case d/w Dr. Glover (07/05/16) - DVT prophylaxis with Heparin 5000units Q8H as pt has subtherapeutic INR with hx of DVT (2) PVD (peripheral vascular disease) Status: Chronic Plan: - Pt was admitted for elective CO2 angiography and potential endovascular intervention with Dr. Page for restenosis of the right popliteal anastomosis and potentially failing bypass graft. - This procedure has been held until more medically stable. - Case d/w Dr. Page (07/05/16) - Procedure is NOT emergent - Dr. Page's office will contact pt early next week to reschedule (3) Paroxysmal atrial fibrillation Status: Chronic Plan: - Pt is on Coreg 25mg po BID, Diltazem 240mg po daily and Coumadin 5mg po daily - INR subtherapeutic at admission at 1.3 - - Diltiazem & coreg stopped d/t pt trending bradycardic - may restart at lower dose - Case d/w Dr. Mcfarlane (07/05/16) - continue SubQ heparin (4) HTN (hypertension) Status: Chronic Plan: - Cont. home meds, Cartia Xt 240 Mg PO DAILY, Cozaar 25 Mg PO HS - Monitor - start hydralazine & resume cozaar 50mg per Cardiology - observe BP readings (5) CKD (chronic kidney disease) stage 4, GFR 15-29 ml/min Status: Chronic Plan: - comgmt with Nephrology - Outpt GFR has been ranging between 22-29 since 12/2015 - US kidney, bladder, ureters (07/04/16) --> NO obstructive process (6) DVT (deep venous thrombosis) Status: Chronic Plan: - Pt had a previous Right LE common fem DVT, nonocclusive in 02/2016 - Heparin 5000 units Q8H (7) BPH (benign prostatic hypertrophy) with urinary retention Status: Chronic Plan: - No obstruction on US (8) Hyperlipidemia Status: Chronic Plan: - Cont. home meds (9) Diabetes mellitus Status: Chronic Plan: - NovoLog SSI - Accu checks Problem Qualifiers (1) Diabetes mellitus: Qualified Code: E11.8 - Type 2 diabetes mellitus with complication, with long- term current use of insulin Jeremi Mercer DO Jul 05, 2016 09:42
[2016-07-05] MEDS: ETHACRYNIC ACID 25 MG TAB PO SCH ×2 (12:00→21:00)
[2016-07-05] MEDS: hydrALAZINE HCL 50 MG TAB PO SCH ×2 (13:02→22:11)
[2016-07-05] MEDS: GABAPENTIN 100 MG CAP PO PRN ×2 (16:03→22:10)
--- NOTE | 2016-07-05 17:42 | HHI.NPPN ---
Subjective History of Present Illness This patient is a 76-year-old male with a known history of chronic kidney disease which usually ranges between CKD 3 and CKD 4. Patient had a hospitalization last year February which was associated with acute renal insufficiency. His serum creatinine level codi to 3.04 during that hospitalization. It was felt that it may have been related to vancomycin exposure with or without dehydration. Subsequent follow-up in the office revealed a creatinine back at baseline at 2.06 with an estimated GFR of March 28, 2016. Patient now presents with a history of increasing exertional dyspnea and a history suggestive of paroxysmal nocturnal dyspnea with orthopnea about 1-2 weeks prior to this admission. He would occasionally take an extra torsemide but did not contact my office. He came in for an elective CO2 angiogram of the right lower extremity with plan for possible angioplasty of a stenosis of her previous popliteal anastomosis. Unfortunately the procedure had to be canceled due to the patient developing respiratory distress with desaturation. Patient also apparently has a history of rash associated with furosemide and bumetanide but surprisingly not by mouth torsemide. He was given ethacrynic acid with improvement in symptomatology. His creatinine level however today was noted to have deteriorated to a level of 2.74 with an estimated GFR of 23. Patient denies noncompliance with dietary salt restriction and has not been using NSAIDs for analgesia. Does complain of nocturia and double voiding. Does have a remote history of bladder outlet obstruction back in 2010. Interval History Pt feeling much better today in regards to improvement in SOB and orthopnea. ( Anna Marie Benites) Objective Data Data 07/04/16 07/05/16 19:00 07:00 Intake Total 620 ml 720 ml Output Total 900 ml 1255 ml Balance -280 ml -535 ml Intake Oral 320 ml 720 ml IV Total 0 ml Other 300 ml Output Urine Total 900 ml 1255 ml # Voids 3 # Bowel Movements 0 Vital Signs Date Time Temp Pulse Resp B/P Pulse Ox O2 Delivery O2 Flow Rate FiO2 07/05/16 11:30 80 07/05/16 11:30 97.9 80 18 163/76 94 07/05/16 07:46 95 21 07/05/16 07:45 65 07/05/16 07:45 98.5 65 18 150/72 93 07/05/16 06:02 68 07/05/16 05:00 69 07/05/16 04:00 65 07/05/16 03:30 98.2 65 16 168/81 96 07/05/16 03:00 62 07/05/16 02:00 77 07/05/16 01:30 159/77 07/05/16 01:00 62 07/05/16 00:00 160/83 07/05/16 00:00 63 07/04/16 23:00 98.2 73 16 165/84 93 07/04/16 23:00 73 07/04/16 22:00 81 07/04/16 21:00 66 07/04/16 20:45 98.3 64 18 176/87 94 07/04/16 20:30 97.8 60 15 165/92 97 Nasal Cannula 2 07/04/16 19:00 63 15 163/95 96 Nasal Cannula 2 07/04/16 18:10 64 15 162/89 96 Nasal Cannula 2 (Anna Marie Beintes) -: 07/05/16 0445 07/05/16 0445 Medication Review Current Medications Medications (Trade) Dose Ordered Sig/Flaquito Route Start Time Stop Time Status Last Admin Lactated Ringer's 1,000 ml @ 30 mls/hr Q24H IV 07/04/16 08:45 07/04/16 09:00 (Lr 1000 ml Inj) 1,000 ml @ 30 mls/hr Q24H IV 07/04/16 09:30 (Edecrin) 50 mg BID PO 07/05/16 09:00 07/05/16 12:00 (Heparin Inj) 5,000 units Q8H SQ 07/04/16 17:00 07/05/16 17:16 (Lipitor) 40 mg HS PO 07/04/16 21:00 07/04/16 21:17 (D50w (Vial) Inj) 25 ml UNSCH PRN IV PUSH 07/04/16 17:30 (Glucagon Inj) 1 mg UNSCH PRN OTHER 07/04/16 17:30 (Levemir Inj) 10 units HS SQ 07/04/16 21:00 07/04/16 21:18 (Neurontin) 200 mg TID PRN PO 07/04/16 18:00 07/05/16 16:03 Miscellaneous Information ALL NURSING DEPARTME... UNSCH PRN XX 07/04/16 21:30 07/05/16 21:29 (Apresoline) 100 mg Q8HR PO 07/05/16 14:00 07/05/16 13:02 (Cozaar) 50 mg HS PO 07/05/16 21:00 (Anna Marie Benites) Physical Exam General Appearance: Well Developed, Well Nourished, No Acute Distress (Anna Marie Benites) Eyes Eye Exam: Pupils Equal, Pupils Reactive (Anna Marie Benites) Throat Throat Exam: Oral Mucosa [place] & Moist (Anna Marie Benites) Neck Neck Exam: Neck Supple, Trachea Midline (Anna Marie Benites) Pulmonary Resp Remarks Faint rales at bases. Overall diminished breath sounds. (Anna Marie Benites) Cardiology CV Exam: Irregular (Anna Marie Benites) Gastrointestinal/Abdomen GI Exam: Soft, Non-Tender (Anna Marie Benites) Integumentary Skin Exam: Clear, Warm (Anna Marie Benites) Extremeties Extremities Exam: Trace Edema Extremeties Remarks RLE. 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 SCr improved slightly today indicating that he likely had some cardiac decompensation. Continue on diuretics. Is currently on po Edecrin. Can transition to Torsemide 20mg in the AM and 10mg in the PM at discharge. Advised to f/u in office within 2 weeks with renal functions in 1 week post- discharge. Medications should be adjusted for the patient's estimated GFR if clinically indicated. Avoid agents with significant potential for nephrotoxicity possible including NSAIDs for analgesia, iodine contrast agents. Gadolinium is contraindicated if the GFR is below 30. (2) CKD (chronic kidney disease) stage 4, GFR 15-29 ml/min Plan: Remains be determined what the patient's baseline renal function will be at this time. If there has been progression of intrinsic renal disease I agree that the patient will likely require dialytic support in the not too distant future. (3) Diastolic dysfunction (4) HTN (hypertension) (5) PVD (peripheral vascular disease) Plan: Management per Dr. Page. (6) Diabetes mellitus Plan: Management per primary care physician. (Anna Marie Benites) Plan The exam, history, and the medical decision-making described in the above note were completed with the assistance of the PAAl. I reviewed and agree with the findings presented. (Pankaj Glover MD) Problem Qualifiers (1) Diabetes mellitus: Qualified Code: E11.8 - Type 2 diabetes mellitus with complication, with long- term current use of insulin Anna Marie Benites Jul 05, 2016 17:42 Pankaj Glover MD Jul 06, 2016 14:46
[2016-07-05] MEDS: INSULIN DETEMIR 100 UNITS/ML VIAL SQ SCH (21:00)
[2016-07-05] MEDS: ATORVASTATIN 40 MG TAB PO SCH (22:10)
[2016-07-05] MEDS: LOSARTAN 50 MG TAB PO SCH (22:10)
[2016-07-06] VITALS: BP 105/50; PULSE 91; RESP 16; TEMP 98; O2SAT 92
[2016-07-06] MEDS: HEPARIN SODIUM - SQ 10,000 UNITS/ML VIAL SQ SCH ×3 (00:16→17:00)
[2016-07-06] MEDS ORDERED: MORPHINE SULFATE 4 MG/ML INJ IV ONE (02:30)
[2016-07-06 04:00] VITALS: BP 152/72; PULSE 96; RESP 18; TEMP 97.9; O2SAT 95
[2016-07-06] MEDS: hydrALAZINE HCL 50 MG TAB PO SCH ×3 (05:31→21:04)
[2016-07-06] MEDS: INSULIN ASPART SUPPLEMENTAL SCALE SQ SCH ×4 (05:31→21:05)
[2016-07-06 08:00] VITALS: BP 143/67; PULSE 86; PULSE 91; RESP 20; TEMP 98; O2SAT 97
[2016-07-06 08:03] LABS: BICARBONATE 28.3 MEQ/L (21.0-32.0); MAGNESIUM 2.4 MG/DL (1.5-2.5)
--- NOTE | 2016-07-06 08:14 | RADRPT ---
EXAM DATE/TIME: 07/06/2016 07:58 [facility] COMPARISON: CHEST SINGLE AP, July 05, 2016, 5:51. INDICATIONS : Shortness of breath and chest pain. MEDICAL HISTORY : Hypertension. Myocardial infarction. Diabetic. BPH. PVD. Hyperlipidemia. Afib. CAD. SURGICAL HISTORY : Cardiac stent. ENCOUNTER: Initial ACUITY: 2 days PAIN SCORE: 6/10 LOCATION: chest FINDINGS: Mild interstitial prominence again seen at the bases. Nothing confluent. No pleural effusion or pneum othorax. Heart size stable, upper limits of normal. Tortuous thoracic aorta with atherosclerosis at the arch a gain noted. CONCLUSION: No significant change mild bibasilar interstitial opacities. Jaspreet Hernandez MD on July 06, 2016 at 8:10 Board Certified Radiologist. This report was verified electronically.
[2016-07-06] MEDS: ETHACRYNIC ACID 25 MG TAB PO SCH ×2 (09:00→21:03)
[2016-07-06] MEDS: LACTATED RINGER'S 1000 ML IV SCH (09:30)
[2016-07-06] MEDS: GABAPENTIN 100 MG CAP PO PRN (10:01)
[2016-07-06 12:00] VITALS: BP 146/56; PULSE 92; RESP 12; TEMP 97.9; O2SAT 97
[2016-07-06] MEDS ORDERED: TEMAZEPAM 15 MG CAP PO PRN (15:45)
[2016-07-06] MEDS ORDERED: NITROGLYCERIN 0.4 MG SL 25 TABS/BTL SL PRN (15:45)
--- NOTE | 2016-07-06 15:49 | HHI.PR ---
Subjective Remarks Pt states that last night he developed chest pain when he tried to lie down. No n/v, diaphoresis, or worsening SOB. Pt states that the chest pain resolved after receiving morphine. Pt has had NO chest pain today and was hoping for discharge. Telemetry reviewed: Cristy Eaton with rate control Objective Vitals Vital Signs Date Time Temp Pulse Resp B/P Pulse Ox O2 Delivery O2 Flow Rate FiO2 07/06/16 12:00 97.9 92 12 146/56 97 07/06/16 08:00 98.0 91 20 143/67 97 07/06/16 04:00 97.9 96 18 152/72 95 07/06/16 00:00 98.0 91 16 105/50 92 07/05/16 20:17 79 07/05/16 20:00 98.1 81 16 175/77 93 07/05/16 07/05/16 07/06/16 15:00 23:00 07:00 Intake Total 122 ml 242 ml Output Total 300 ml 500 ml Balance -178 ml -258 ml Intake Oral 120 ml 240 ml IV Total 2 ml Tube Feeding 2 ml Output Urine Total 300 ml 500 ml # Voids 1 # Bowel Movements 0 0 Result Diagram: 07/05/16 0445 07/06/16 0600 Imaging Last Impressions Chest X-Ray 07/06/16 0800 Signed Impressions: Service Date/Time: Wednesday, July 06, 2016 07:58 - CONCLUSION: No significant change mild bibasilar interstitial opacities. Jaspreet Hernandez MD Renal Ultrasound 07/04/16 0000 Signed Impressions: Service Date/Time: June 22:05 - CONCLUSION: 1. No evidence of obstruction. Bilateral renal cysts Mihai Thomas MD Objective Remarks GENERAL: This is a well-nourished, well-developed patient, in no apparent distress. CARDIOVASCULAR: Regular rate and rhythm without murmurs, gallops, or rubs. RESPIRATORY: Clear to auscultation. Breath sounds equal bilaterally. No wheezes , rales, or rhonchi. GASTROINTESTINAL: Abdomen soft, non-tender, nondistended. Normal active bowel sounds MUSCULOSKELETAL: Extremities without clubbing, cyanosis, or edema. NEURO: Alert & Oriented x4 to person, place, time, situation. Moves all ext x4 A/P Problem List: (1) Atypical chest pain Status: Acute Plan: - obtain serial cardiac enzymes - obtain serial EKGs - prn NTG (2) Diastolic dysfunction Status: Chronic Plan: - comgmt with Cardiology & Nephrology - [place] [facility] [place] elective CO2 angiography and potential endovascular intervention with Dr. Page but presented in an apparent decompensated heart failure with weight gain, increased LE edema, increased SOB, and orthopnea. - Pt takes Torsemide 10mg BID and potassium as an outpt due to intolerance to Lasix and Bumex - Pt has been given Edecrin 80mg IV x one dose - Edecrin 50mg BID - upon discharge will resume torsemide 20mg AM & 10mg PM - CXR (07/06/16) --> stable from 07/05 - Pt is tolerating RA - Case d/w Dr. Mcfarlane (07/05/16) - Case d/w Dr. Glover (07/05/16) - DVT prophylaxis with Heparin 5000units Q8H (3) PVD (peripheral vascular disease) Status: Chronic Plan: - Pt was admitted for elective CO2 angiography and potential endovascular intervention with Dr. Page for restenosis of the right popliteal anastomosis and potentially failing bypass graft. - This procedure has been held until more medically stable. - Case d/w Dr. Page (07/05/16) - Procedure is NOT emergent - Dr. Page's office will contact pt early next week to reschedule (4) Paroxysmal atrial fibrillation Status: Chronic Plan: - Pt is on Coreg 25mg po BID, Diltazem 240mg po daily and Coumadin 5mg po daily - INR subtherapeutic at admission at 1.3 - - Diltiazem & coreg stopped d/t pt trending bradycardic - may restart at lower dose - Case d/w Dr. Mcfarlane (07/05/16) - continue SubQ heparin (5) HTN (hypertension) Status: Chronic Plan: - Cont. home meds, Cartia Xt 240 Mg PO DAILY, Cozaar 25 Mg PO HS - Monitor - start hydralazine & resume cozaar 50mg per Cardiology - observe BP readings (6) CKD (chronic kidney disease) stage 4, GFR 15-29 ml/min Status: Chronic Plan: - comgmt with Nephrology - Outpt GFR has been ranging between 22-29 since 12/2015 - US kidney, bladder, ureters (07/04/16) --> NO obstructive process (7) DVT (deep venous thrombosis) Status: Chronic Plan: - Pt had a previous Right LE common fem DVT, nonocclusive in 02/2016 - Heparin 5000 units Q8H (8) BPH (benign prostatic hypertrophy) with urinary retention Status: Chronic Plan: - No obstruction on US (9) Hyperlipidemia Status: Chronic Plan: - Cont. home meds (10) Diabetes mellitus Status: Chronic Plan: - NovoLog SSI - Accu checks Problem Qualifiers (1) Diabetes mellitus: Qualified Code: E11.8 - Type 2 diabetes mellitus with complication, with long- term current use of insulin Jeremi Mercer DO Jul 06, 2016 15:49
[2016-07-06 16:00] VITALS: BP 144/75; PULSE 88; RESP 16; TEMP 98; O2SAT 94
--- NOTE | 2016-07-06 16:34 | HHI.NPPN ---
Subjective History of Present Illness This patient is a 76-year-old male with a known history of chronic kidney disease which usually ranges between CKD 3 and CKD 4. Patient had a hospitalization last year February which was associated with acute renal insufficiency. His serum creatinine level codi to 3.04 during that hospitalization. It was felt that it may have been related to vancomycin exposure with or without dehydration. Subsequent follow-up in the office revealed a creatinine back at baseline at 2.06 with an estimated GFR of March 28, 2016. Patient now presents with a history of increasing exertional dyspnea and a history suggestive of paroxysmal nocturnal dyspnea with orthopnea about 1-2 weeks prior to this admission. He would occasionally take an extra torsemide but did not contact my office. He came in for an elective CO2 angiogram of the right lower extremity with plan for possible angioplasty of a stenosis of her previous popliteal anastomosis. Unfortunately the procedure had to be canceled due to the patient developing respiratory distress with desaturation. Patient also apparently has a history of rash associated with furosemide and bumetanide but surprisingly not by mouth torsemide. He was given ethacrynic acid with improvement in symptomatology. His creatinine level however today was noted to have deteriorated to a level of 2.74 with an estimated GFR of 23. Patient denies noncompliance with dietary salt restriction and has not been using NSAIDs for analgesia. Does complain of nocturia and double voiding. Does have a remote history of bladder outlet obstruction back in 2010. Interval History Patient indicated that he experienced chest discomfort and some dyspnea for a few hours last night relieved with morphine. Primary care physician aware. Denies a history of hiatal hernia or gastroesophageal reflux previously. Review of Systems Respiratory Lungs: SOB (as above) Cardiovascular Cardiac: Chest Pain (as above) Objective Data Data 07/05/16 07/06/16 19:00 07:00 Intake Total 364 ml Output Total 800 ml Balance -436 ml Intake Oral 360 ml IV Total 2 ml Tube Feeding 2 ml Output Urine Total 800 ml # Voids 1 # Bowel Movements 0 Vital Signs Date Time Temp Pulse Resp B/P Pulse Ox O2 Delivery O2 Flow Rate FiO2 07/06/16 16:00 98.0 88 16 144/75 94 07/06/16 12:00 97.9 92 12 146/56 97 07/06/16 08:00 86 07/06/16 08:00 98.0 91 20 143/67 97 07/06/16 04:00 97.9 96 18 152/72 95 07/06/16 00:00 98.0 91 16 105/50 92 07/05/16 20:17 79 07/05/16 20:00 98.1 81 16 175/77 93 -: 07/05/16 0445 07/06/16 0600 Physical Exam General Appearance: Well Developed, Well Nourished, No Acute Distress, Comfortable Eyes Eye Exam: Pupils Equal, Pupils Reactive Throat Throat Exam: Oral Mucosa [place] & Moist Neck Neck Exam: Neck Supple, Trachea Midline Cardiology CV Exam: Irregular Gastrointestinal/Abdomen GI Exam: Soft, Non-Tender Integumentary Skin Exam: Clear, Warm Extremeties Extremities Exam: Trace Edema Neurologic Neuro Exam: Alert, Awake, Oriented Psychiatric Psych Exam: Appropriate Responses Assessment/Plan Discussed Condition With: Patient, Spouse Problem List: (1) Acute renal insufficiency Plan: Patient's creatinine level continues to improve. Volume status appears to be acceptable clinically. Can transition to Torsemide 20mg in the AM and 10mg in the PM at discharge. Advised to f/u in office within 2 weeks with renal functions in 1 week post- discharge. In regard to symptomatology described above. We'll defer cardiac evaluation to primary care physician. He was mutually agreed however to try a trial of a proton pump inhibitor as the patient's symptomatology may also be related to a possible GI issue i.e. acid reflux. Protonix 40 mg daily was prescribed to start today. Patient will be seen when necessary. Medications should be adjusted for the patient's estimated GFR if clinically indicated. Avoid agents with significant potential for nephrotoxicity possible including NSAIDs for analgesia, iodine contrast agents. Gadolinium is contraindicated if the GFR is below 30. (2) CKD (chronic kidney disease) stage 4, GFR 15-29 ml/min Plan: Remains be determined what the patient's baseline renal function will be at this time. If there has been progression of intrinsic renal disease I agree that the patient will likely require dialytic support in the not too distant future. (3) Diastolic dysfunction (4) HTN (hypertension) (5) PVD (peripheral vascular disease) Plan: Management per Dr. Page. (6) Diabetes mellitus Plan: Management per primary care physician. Problem Qualifiers (1) Diabetes mellitus: Qualified Code: E11.8 - Type 2 diabetes mellitus with complication, with long- term current use of insulin Pankaj Glover MD Jul 06, 2016 16:34
[2016-07-06] MEDS: PANTOPRAZOLE SOD 40 MG DELAYED RELEASE TAB PO SCH (16:45)
[2016-07-06 20:00] VITALS: BP 115/58; PULSE 103; PULSE 90; RESP 20; TEMP 98.3; O2SAT 95
[2016-07-06] MEDS: INSULIN DETEMIR 100 UNITS/ML VIAL SQ SCH (21:04)
[2016-07-06] MEDS: ATORVASTATIN 40 MG TAB PO SCH (21:04)
[2016-07-06] MEDS: LOSARTAN 50 MG TAB PO SCH (21:04)
[2016-07-06 23:10] LABS: HDL CHOLESTEROL 40.9 MG/DL (40.0-60.0)
[2016-07-07] VITALS: BP 133/67; PULSE 97; RESP 20; TEMP 98.7; O2SAT 94
[2016-07-07] MEDS: HEPARIN SODIUM - SQ 10,000 UNITS/ML VIAL SQ SCH ×3 (00:46→16:26)
[2016-07-07 04:00] VITALS: BP 153/72; PULSE 99; RESP 20; TEMP 98.6; O2SAT 94
[2016-07-07] MEDS: hydrALAZINE HCL 50 MG TAB PO SCH ×2 (05:17→14:00)
[2016-07-07] MEDS: INSULIN ASPART SUPPLEMENTAL SCALE SQ SCH ×3 (06:04→16:00)
[2016-07-07 08:00] VITALS: BP 130/73; PULSE 100; RESP 16; TEMP 98.3; O2SAT 92
[2016-07-07 09:00] VITALS: PULSE 101
[2016-07-07] MEDS: PANTOPRAZOLE SOD 40 MG DELAYED RELEASE TAB PO SCH (09:08)
[2016-07-07] MEDS: ETHACRYNIC ACID 25 MG TAB PO SCH (09:08)
[2016-07-07] MEDS: LACTATED RINGER'S 1000 ML IV SCH (09:30)
[2016-07-07 12:00] VITALS: BP 131/75; PULSE 100; RESP 12; TEMP 97.8; O2SAT 92
--- NOTE | 2016-07-07 14:13 | EKG ---
Date Performed: 07/06/2016 Time Performed: 22:03:37 PTAGE: 76 years EKG: ATRIAL FIBRILLATION MODERATE ST DEPRESSION Since previous tracing, ST-T change is slightly more prominent, no significant change noted ABNORMAL ECG PREVIOUS TRACING : 07/06/2016 16.02 DOCTOR: Jose C Mtz Interpretating Date/Time 07/07/2016 15:35:31
--- NOTE | 2016-07-07 14:14 | EKG ---
Date Performed: 07/06/2016 Time Performed: 16:02:22 PTAGE: 76 years EKG: ATRIAL FIBRILLATION Since previous tracing, HR is somewhat faster, otherwise no significant change ABNORMAL RHYTHM ECG PREVIOUS TRACING : 07/04/2016 08.31 DOCTOR: Jose C Mtz Interpretating Date/Time 07/07/2016 15:34:59
[2016-07-07] MEDS ORDERED: REST15CA PO (15:58)
[2016-07-07] MEDS ORDERED: DILT-60 PO (15:58)
[2016-07-07] MEDS ORDERED: HEPA10003 SQ (15:58)
[2016-07-07] MEDS ORDERED: HYDR50TA15 PO (15:58)
[2016-07-07] MEDS ORDERED: TORS10TA2 PO (15:58)
[2016-07-07] MEDS ORDERED: PANT40TA3 PO (15:58)
--- NOTE | 2016-07-07 16:02 | HHI.FF ---
Face to Face Verification Diagnosis: (1) PVD (peripheral vascular disease) (2) CKD (chronic kidney disease) stage 4, GFR 15-29 ml/min (3) BPH (benign prostatic hypertrophy) with urinary retention (4) HTN (hypertension) (5) Diabetes mellitus (6) Diastolic dysfunction (7) Paroxysmal atrial fibrillation Home Health Nursing Order: Medical education Signs/symptoms of disease process Diabetic education CHF education Medication education-adverse effect Nursing assessment with vital signs Instructions: assist pt with SubQ heparin I have seen patient Reid Kruger on 07/07/16. My clinical findings support the need for the requested home health care services because: Ltd mobility - disease progression Deconditioned w/ increased weakness Med compliance is questionable Limited ability to care for self Need for psychosocial assistance I certify that my clinical findings support that this patient is homebound because: Impaired cognitive ability/safety Unsafe to leave home unassisted Need for psychosocial assistance Unable to use public transportation Jeremi Mercer DO Jul 07, 2016 16:02
--- NOTE | 2016-07-07 16:08 | HHI.DCPOC ---
Discharge Care Plan Diagnosis: (1) CKD (chronic kidney disease) stage 4, GFR 15-29 ml/min (2) BPH (benign prostatic hypertrophy) with urinary retention (3) HTN (hypertension) (4) PVD (peripheral vascular disease) (5) Atypical chest pain (6) Diastolic dysfunction Goals to Promote Your Health * To prevent worsening of your condition and complications * To maintain your health at the optimal level Directions to Meet Your Goals Take your medications as prescribed Follow your dietary instruction Follow activity as directed Keep your appointments as scheduled Take your immunizations and boosters as scheduled If your symptoms worsen call your PCP, if no PCP go to Urgent Care Center or Emergency Room Smoking is Dangerous to Your Health. Avoid second hand smoke Call the 24-hour hour crisis hotline for domestic abuse at Jeremi Mrecer DO Jul 07, 2016 16:08
--- NOTE | 2016-07-07 16:14 | HHI.DS ---
Discharge Summary Admission Date Jul 04, 2016 at 17:05 Discharge Date: Jul 07, 2016 Admitting Diagnosis (1) Atypical chest pain Diagnosis: Principal (2) Diastolic dysfunction Diagnosis: Principal (3) PVD (peripheral vascular disease) Diagnosis: Principal (4) Paroxysmal atrial fibrillation Diagnosis: Secondary (5) HTN (hypertension) Diagnosis: Secondary (6) CKD (chronic kidney disease) stage 4, GFR 15-29 ml/min Diagnosis: Secondary (7) DVT (deep venous thrombosis) Diagnosis: Secondary (8) BPH (benign prostatic hypertrophy) with urinary retention Diagnosis: Secondary (9) Hyperlipidemia Diagnosis: Secondary (10) Diabetes mellitus Diagnosis: Secondary Consultants Dr. Tj Page, Vascular Surgeon Dr. Jessee Mcfarlane, Cardiology Dr. Carlos Alberto Glover, Nephrology Brief History Mr. Kruger is a pleasant 76 y/o WM with diabetes mellitus, type II, PVD and hx of left BKA, HTN, osteoarthritis, hyperlipidemia, paroxysmal atrial fibrillation on chronic anticoagulation with Coumadin, and CAD with hx of [place]. Pt was [place] [facility] [place] for elective CO2 angiography and potential endovascular intervention with Dr. Page for restenosis of the right popliteal anastomosis and potentially failing bypass graft. When the pt arrived today he reports that more recently he has been having progressive shortness of breath over the course of the past few weeks. He has had significant weight gain and has been unable to lie flat at night. He has been sleeping in a chair. Pt takes Torsemide 10mg po BID as an outpt as he has sulfa allergy and is intolerant to Lasix and Bumex. Previous 2D echo (06/13/16) noted preserved EF 55- 60%, grade 1 diastolic dysfunction, mild to moderate mitral regurg, and pulmonary HTN with RSVP 56mmHg. His creatinine today was 2.74 which isn't too far off from previous labs in May. Per report from the Chain Repairer, the pt was taken to the OR for vascular intervention this morning and as the procedure began and he was given the anesthetic, he desaturated rapidly and the procedure was cancelled. Pt has been given Edecrin 80mg IV x one dose and will be continued on Edecrin 50mg po BID starting tomorrow. CXR indicated bilateral pleural effusions and pulmonary edema. [facility] hospitalist team has been consulted to help with medical management. Pt is seen in PACU. He had been on 6L via simple mask but currently is on 2-3L via NC. CBC/BMP: 07/05/16 0445 07/06/16 0600 Significant Findings Laboratory Tests Test 07/05/16 07/05/16 07/06/16 07/06/16 01:20 04:45 06:00 16:37 Urine Leukocyte Esterase TRACE (NEG) Urine Mucus FEW /lpf (OCC) Red Blood Count 3.15 MIL/MM3 (4.50-5.90) Hemoglobin 10.4 GM/DL (13.0-17.0) Hematocrit 30.8 % (39.0-51.0) Neutrophils (%) (Auto) 78.5 % (16.0-70.0) Monocytes (%) (Auto) 8.5 % (0.0-8.0) Lymphocytes # (Auto) 0.7 TH/MM3 (1.0-4.8) Blood Urea Nitrogen 53 MG/DL (7-18) 47 MG/DL (7-18) Creatinine 2.46 MG/DL 2.32 MG/DL (0.60-1.30) (0.60-1.30) Estimat Glomerular Filtration 26 ML/MIN (>89) 28 ML/MIN (>89) Rate Random Glucose 70 MG/DL (74-106) 25-Hydroxy Vitamin D Total 22.9 ng/ML (30-100) Parathyroid Hormone (Intact) 97.2 PG/ML (12.4-76.8) Calcium Level 8.4 MG/DL (8.5-10.1) B-Type Natriuretic Peptide 316 PG/ML (0-100) Troponin I 0.07 NG/ML (0.02-0.05) Test 07/06/16 21:41 Troponin I 0.06 NG/ML (0.02-0.05) Cholesterol Level 100 MG/DL (120-200) Imaging Last Impressions Chest X-Ray 07/06/16 0800 Signed Impressions: Service Date/Time: Wednesday, July 06, 2016 07:58 - CONCLUSION: No significant change mild bibasilar interstitial opacities. Jaspreet Hernandez MD Renal Ultrasound 07/04/16 0000 Signed Impressions: Service Date/Time: June 22:05 - CONCLUSION: 1. No evidence of obstruction. Bilateral renal cysts Mihai Thomas MD PE at Discharge GENERAL: This is a well-nourished, well-developed patient, in no apparent distress. CARDIOVASCULAR: Regular rate and rhythm without murmurs, gallops, or rubs. RESPIRATORY: Clear to auscultation. Breath sounds equal bilaterally. No wheezes , rales, or rhonchi. GASTROINTESTINAL: Abdomen soft, non-tender, nondistended. Normal active bowel sounds MUSCULOSKELETAL: Extremities without clubbing, cyanosis, or edema. NEURO: Alert & Oriented x4 to person, place, time, situation. Moves all ext x4 Hospital Course (1) Atypical chest pain Status: Acute Plan: - serial cardiac enzymes negative - serial EKGs did NOT show acute ischemic changes - reviewed lexiscan 02/2016 --> negative - symptoms resolved with use of PPI (2) Diastolic dysfunction Status: Chronic Plan: - comgmt with Cardiology & Nephrology - Pt was admitted [place] [facility] [place] for elective CO2 angiography and potential endovascular intervention with Dr. Page but presented in an apparent decompensated heart failure with weight gain, increased LE edema, increased SOB, and orthopnea. - Pt takes Torsemide 10mg BID and potassium as an outpt due to intolerance to Lasix and Bumex - Pt has been given Edecrin 80mg IV x one dose - Edecrin 50mg BID - upon discharge will resume torsemide 20mg AM & 10mg PM - CXR (07/06/16) --> stable from 07/05 - Pt is tolerating RA - Case d/w Dr. Mcfarlane (07/05/16) - Case d/w Dr. Glover (07/05/16) - DVT prophylaxis with Heparin 5000units Q8H, continue d/t upcoming surgery. Will resume coumadin following surgery. - Given pt's multiple medication changes, I offered to hold discharge until AM. Pt declines - I will discharge to home this evening after evening SubQ heparin - pt will go to [facility] in the AM (3) PVD (peripheral vascular disease) Status: Chronic Plan: - Pt was admitted for elective CO2 angiography and potential endovascular intervention with Dr. Page for restenosis of the right popliteal anastomosis and potentially failing bypass graft. - This procedure has been held until more medically stable. - Case d/w Dr. Page (07/05/16) - Procedure is NOT emergent - Dr. Page's office will contact pt early next week to reschedule (4) Paroxysmal atrial fibrillation Status: Chronic Plan: - Pt is on Coreg 25mg po BID, Diltazem 240mg po daily and Coumadin 5mg po daily - INR subtherapeutic at admission at 1.3 - - Diltiazem & coreg stopped d/t pt trending bradycardic - Case d/w Dr. Mcfarlane (07/05/16) - will resume Diltiazem CD at lower dose of 120mg daily - continue SubQ heparin (5) HTN (hypertension) Status: Chronic Plan: - Cont. home meds, Cartia Xt 240 Mg PO DAILY, Cozaar 25 Mg PO HS - Monitor - start hydralazine - observe BP readings (6) CKD (chronic kidney disease) stage 4, GFR 15-29 ml/min Status: Chronic Plan: - comgmt with Nephrology - Outpt GFR has been ranging between 22-29 since 12/2015 - US kidney, bladder, ureters (07/04/16) --> NO obstructive process (7) DVT (deep venous thrombosis) Status: Chronic Plan: - Pt had a previous Right LE common fem DVT, nonocclusive in 02/2016 - Heparin 5000 units Q8H (8) BPH (benign prostatic hypertrophy) with urinary retention Status: Chronic Plan: - No obstruction on US (9) Hyperlipidemia Status: Chronic Plan: - Cont. home meds (10) Diabetes mellitus Status: Chronic Plan: - pt will resume outpt insulin regimen upon discharge Pt Condition on Discharge: Stable Discharge Disposition: Disch w/ Home Health Serv Discharge Instructions DIET: Follow Instructions for: Heart Healthy Diet, Diabetic Diet Activities you can perform: Regular-No Restrictions Follow up Referrals: PCP Follow-up - [address] Billy Treviño Surgical - 3-[address] Tj Page New Medications: Diltiazem CD 24 HR (Diltiazem CD 24 HR) 120 Mg Caper 120 MG PO DAILY #30 Ref 0 CAP Heparin Sodium (Porcine) (Heparin Sodium) 10,000 Unit/Ml Inj 5000 UNITS SQ Q8H dvt Days 30 Ref 0 INJECTION Hydralazine (Hydralazine) 50 Mg Tab 100 MG PO Q8HR htn #90 Ref 0 TAB Pantoprazole (Pantoprazole) 40 Mg Tab 40 MG PO DAILY gerd #30 Ref 0 TAB Temazepam (Restoril) 15 Mg Cap 15 MG PO HS PRN insominia #20 Ref 0 CAP Changed Medications: Torsemide (Torsemide) 10 Mg Tab 10 MG PO BID 20mg in AM and 10mg in PM chf #90 Ref 0 TAB (Changed from: 60) Continued Medications: Atorvastatin (Atorvastatin) 40 Mg Tab 40 MG PO HS Cholesterol Management Ref 0 TAB Gabapentin (Gabapentin) 100 Mg Cap 200 MG PO TID PRN PAIN SCALE 1 TO 10 #60 Ref 0 CAP Insulin Aspart Inj (Novolog Inj) 1,000 Unit/10 Ml Vial 12-15 UNITS SQ TID Blood Sugar Management #10 Ref 0 ML Insulin Glargine Inj (Lantus Inj) 1,000 Unit/10 Ml Vial 10-12 UNITS SQ HS Blood Sugar Management Ref 0 VIAL Losartan (Cozaar) 25 Mg Tab 25 MG PO HS Blood Pressure Management Ref 0 TAB Discontinued Medications: Carvedilol (Coreg) 25 Mg Tab 25 MG PO BID Ref 0 TAB Diltiazem ER 24 HR (Cartia Xt) 240 Mg Caper 240 MG PO DAILY Ref 0 CAP Warfarin (Warfarin) 5 Mg Tab 5 MG PO DAILY Blood Clot Prevention #30 Ref 0 TAB Jeremi Mercer DO Jul 07, 2016 16:14
--- NOTE | 2016-07-08 14:35 | EKG ---
Date Performed: 07/07/2016 Time Performed: 14:13:24 PTAGE: 76 years EKG: Atrial fibrillation. Poor R wave progression - probable normal variant Lateral ST-T changes are nonspecific Abnormal ECG PREVIOUS TRACING : 07/06/2016 22.03 DOCTOR: Chaka Maier Interpretating Date/Time 07/08/2016 14:30:37
== END 2016-07-07 18:37 | disposition home health service (06) | DRG 292 ==
LOC: HCVO 07:43 → HSDI 17:05 → HCPC 20:45 → N04A 07-05 18:41
PROVIDERS: ADMIT Hospitalist; ATTEND Hospitalist
DX: I13.0 Hypertensive heart and chronic kidney disease with heart failure and stage 1 through stage 4 chronic kidney disease, or unspecified chronic kidney disease (principal); I50.32 Chronic diastolic (congestive) heart failure; N18.4 Chronic kidney disease, stage 4 (severe); I73.9 Peripheral vascular disease, unspecified; E11.21 Type 2 diabetes mellitus with diabetic nephropathy; Z53.09 Procedure and treatment not carried out because of other contraindication; I27.2 Other secondary pulmonary hypertension; R18.8 Other ascites; I48.0 Paroxysmal atrial fibrillation; E11.22 Type 2 diabetes mellitus with diabetic chronic kidney disease; J44.9 Chronic obstructive pulmonary disease, unspecified; I34.0 Nonrheumatic mitral (valve) insufficiency; I25.10 Atherosclerotic heart disease of native coronary artery without angina pectoris; I35.8 Other nonrheumatic aortic valve disorders; Z99.2 Dependence on renal dialysis; Z79.01 Long term (current) use of anticoagulants; H40.1190 Primary open-angle glaucoma, unspecified eye, stage unspecified; E78.5 Hyperlipidemia, unspecified; R33.8 Other retention of urine; N40.1 Benign prostatic hyperplasia with lower urinary tract symptoms; Z96.641 Presence of right artificial hip joint; Z95.5 Presence of coronary angioplasty implant and graft; Z79.4 Long term (current) use of insulin; Z86.718 Personal history of other venous thrombosis and embolism; I07.1 Rheumatic tricuspid insufficiency; I25.2 Old myocardial infarction; Z89.512 Acquired absence of left leg below knee; K21.9 Gastro-esophageal reflux disease without esophagitis; Z86.010 Personal history of colon polyps; Z87.891 Personal history of nicotine dependence
CPT/HCPCS: 71010; 71020; 76775; 80048; 80061; 81001; 82306; 82550; 82948; 83735; 83880; 83970; 84100; 84443; 84484; 85025; 85610; 85730; 86850; 86900; 86901; 93005; 99211; G0463; J0690; J1644; J1815; J1940; J2250; J2270; J3010; J7120

== ENCOUNTER 2016-07-09 11:55 | Day surgery (SDC) | payer MEDICARE ==
[~2016-07-09] VITALS: Ht 177.8 cm; Wt 102.5 kg
[~2016-07-09 11:55] MED LIST changes: +BUPIVACAINE/EPINEPHRINE 0.5% PF 30 ML VIAL ONE; -CART240C PO; -CORE25TA PO; +DILT-60 PO; -FURO1TAB62 PO; +HEPA10003 SQ; +HEPARIN SODIUM - IV 10,000 UNITS/10 ML VIAL ONE; +HEPARIN SODIUM - SQ 10,000 UNITS/ML VIAL ONE; +HYDR50TA15 PO; +PANT40TA3 PO; +REST15CA PO; +TORS10TA2 PO; -WARF-23 PO
[2016-07-09] MEDS ORDERED: ePHEDrine/NS 25 MG/5 ML SYR IV ONE (12:00)
[2016-07-09] MEDS ORDERED: IOHEXOL 300 MG/ML 50 ML BTL (for RAD DIAG) IV ONE (12:00)
[2016-07-09] MEDS ORDERED: PROPOFOL 200 MG/20 ML AMP IV ONE (12:00)
[2016-07-09] MEDS ORDERED: PHENYLEPH/NS 1000 MCG/10 ML SYR IV ONE (12:00)
[2016-07-09] MEDS ORDERED: ceFAZolin 1,000 MG/NS 100 ML IV SCH ×2 (12:45)
[2016-07-09 13:00] VITALS: BP 150/79; PULSE 84; RESP 18; TEMP 97.6; O2SAT 98
[2016-07-09] MEDS ORDERED: COUM5TAB PO (13:01)
[2016-07-09 13:35] LABS: APTT (PATIENT) 34.8 SEC (24.3-30.1); PROTHROMBIN TIME - PATIENT 11.5 SEC (9.8-11.6)
[2016-07-09] MEDS ORDERED: LACTATED RINGER'S 1000 ML IV SCH (13:45)
[2016-07-09] MEDS ORDERED: METOPROLOL TARTRATE 25 MG TAB PO PRN (13:45)
[2016-07-09] MEDS ORDERED: SODIUM CHLORID 0.9% 500 ML IV SCH (13:45)
[2016-07-09] MEDS ORDERED: INSULIN HUMAN REGULAR 1,000 UNITS/10 ML VIAL SQ PRN (13:45)
[2016-07-09] MEDS ORDERED: FAMOTIDINE 20 MG/2 ML VIAL ONE (13:52)
[2016-07-09] MEDS ORDERED: MIDAZOLAM HCL 2 MG/2 ML VIAL ONE (13:53)
[2016-07-09] MEDS ORDERED: *morphine SULFATE 8 MG/ML PERIprocedure ONLY ONE (16:42)
[2016-07-09] MEDS ORDERED: GABAPENTIN 100 MG CAP PO PRN (17:15)
[2016-07-09] MEDS ORDERED: MORPHINE SULFATE 4 MG/ML INJ IV PUSH PRN (17:30)
[2016-07-09] MEDS ORDERED: LIDOCAINE HCL 1% 50 ML VIAL INFIL PRN (17:30)
[2016-07-09] MEDS ORDERED: ATROPINE SULFATE 1 MG/ML VIAL IV PUSH PRN (17:30)
[2016-07-09] MEDS ORDERED: LABETALOL HCL 100 MG/20 ML VIAL IVP PRN (17:30)
[2016-07-09] MEDS ORDERED: SODIUM CHLOR 0.9% 250 ML IV PRN (17:30)
[2016-07-09] MEDS ORDERED: ENALAPRILAT 1.25 MG/ML VIAL IV PRN (17:30)
[2016-07-09] MEDS ORDERED: oxyCODONE/ACETAMINOPHEN 5 MG/325 MG TAB PO PRN (17:30)
[2016-07-09] MEDS ORDERED: METOCLOPRAMIDE HCL 10 MG/2 ML VIAL IVS PRN (17:30)
[2016-07-09] MEDS ORDERED: POTASSIUM CHLORIDE 20 MEQ CONTROLLED RELEASE TAB PO PRN (17:30)
[2016-07-09] MEDS ORDERED: SODIUM CHLORIDE 0.9% 1000 ML @ 75 ML/HR IV SCH (17:30)
[2016-07-09] MEDS ORDERED: SODIUM CHLORIDE 5 ML FLUSH PRN IVF (17:30)
[2016-07-09] MEDS ORDERED: cloNIDine HCL 0.1 MG TAB PO PRN (17:30)
[2016-07-09] MEDS ORDERED: ONDANSETRON HCL 4 MG/2 ML VIAL IV PRN (17:30)
[2016-07-09] MEDS ORDERED: HOLD GLUCOPHAGE, GLUCOPHAGE XR, AND AVANDAMET XX PRN (17:30)
[2016-07-09] MEDS ORDERED: LORazepam 2 MG/ML VIAL IVP PRN (17:30)
[2016-07-09] MEDS ORDERED: SODIUM NITROPRUSSIDE 50 MG/250 ML D5W IV SCH ×2 (17:30)
[2016-07-09 18:00] VITALS: BP 136/63; PULSE 76; RESP 18; O2SAT 95
[2016-07-09] MEDS ORDERED: INSULIN ASPART 1,000 UNITS/10 ML VIAL SQ SCH (18:00)
[2016-07-09] MEDS ORDERED: TORSEMIDE 5 MG TAB PO SCH ×2 (19:00→21:00)
[2016-07-09 20:00] VITALS: BP 143/79; PULSE 78; RESP 16; TEMP 97.4; O2SAT 93
[2016-07-09] MEDS: hydrALAZINE HCL 100 MG TAB PO SCH (20:25)
[2016-07-09] MEDS: SODIUM CHLORIDE 5 ML FLUSH BID IVF SCH (20:25)
[2016-07-09] MEDS ORDERED: TEMAZEPAM 15 MG CAP PO PRN (21:00)
[2016-07-09] MEDS ORDERED: INSULIN DETEMIR 100 UNITS/ML VIAL SQ SCH (21:00)
[2016-07-09] MEDS ORDERED: ATORVASTATIN 40 MG TAB PO SCH (21:00)
[2016-07-09] MEDS ORDERED: LOSARTAN 25 MG TAB PO SCH (21:00)
[2016-07-10] VITALS: BP 133/62; PULSE 85; RESP 16; TEMP 98; O2SAT 96
[2016-07-10] MEDS: hydrALAZINE HCL 100 MG TAB PO SCH ×2 (01:44→09:00)
[2016-07-10] MEDS: HEPARIN SODIUM - SQ 10,000 UNITS/ML VIAL SQ SCH ×2 (01:55→09:00)
[2016-07-10 04:00] VITALS: BP 169/77; PULSE 95; RESP 20; TEMP 97.9; O2SAT 93
[2016-07-10 07:00] VITALS: PULSE 96
--- NOTE | 2016-07-10 07:10 | MP ---
cc: FARAZ RUSH D.O., STEPHEN E. MD SINGH, PETER SUTTON, JAMES DATE OF SURGERY 07/09/2016 PREOPERATIVE DIAGNOSIS Failing right popliteal-posterior tibial bypass (by duplex evaluation). POSTOPERATIVE DIAGNOSIS Failing right popliteal-posterior tibial bypass (by duplex evaluation). PROCEDURE Selective right femoral-popliteal tibial CO2 angiogram. Percutaneous balloon angioplasty focal stenosis proximal vein graft. SURGEON Parmjit Page MD PHOTOGRAPHER PORTRAIT FANNY Vaughn ANESTHESIA Local MAC. DESCRIPTION OF THE OPERATIVE PROCEDURE With the patient in the supine position, IV sedation was induced, the lower abdomen, both groins and the entire right lower extremity prepped with Betadine and draped in a sterile fashion. Following a protocol time-out, the skin and subcutaneous tissue surrounding the proposed left common femoral access site was preemptively infiltrated with 0.5% Marcaine with epinephrine. Utilizing ultrasound guidance, the left mid-common femoral was accessed with an 18-gauge needle in retrograde fashion and a J-wire advanced under fluoroscopic guidance into the iliac artery. A 5-Ugandan hemostatic sheath was deployed over the J-wire. An Advantage guidewire/Omni catheter combination was negotiated retrograde into the left iliac, distal aorta, navigated into the right iliac and proximal right superficial femoral artery. Utilizing CO2 as contrast, selective angiography of the right lower extremity was then accomplished. This confirmed a widely patent proximal SFA and popliteal. The popliteal to reverse saphenous vein bypass anastomosis was widely patent. However, approximately 10 mm distal to the anastomosis the vein exhibited a focal approximately 70-80% stenosis extending approximately 30 mm in length. Beyond this the vein graft was widely patent to the posterior tibial anastomosis. The plantar arch, although diffusely diseased, remained patent and perfused the tarsal arteries. The short 5-Ugandan sheath was exchanged for a 45-cm, 5-Ugandan sheath which was guided over the aortic bifurcation into the proximal right SFA. Utilizing roadmapping guidance, the proximal vein graft stenosis was initially dilated with a 4 x 40-mm balloon, followed by 5 x 60-mm drug coated balloon inflated to 10 atmospheres, 3-minute inflation. Completion angiogram revealed significant luminal gain with less than 20% residual stenosis at the angioplasty site. No technical defects were apparent with rapid flow to the foot. It should be noted that at the end of the procedure, 4000 units of heparin were administered and ACT measured 236. At the completion of the procedure, the long 5-Ugandan sheath was exchanged for a shorter, 5-Ugandan sheath which was secured with a skin suture. Sterile dressing applied. At the completion of the procedure, the reverse saphenous vein bypass graft was easily palpable with robust biphasic Doppler flow throughout. The patient returned to Recovery in stable condition having tolerated the procedure well. MD ALICIA Gregory/VALERIE /5:09 PM /6:51 AM
[2016-07-10] MEDS: SODIUM CHLORIDE 5 ML FLUSH BID IVF SCH (09:00)
[2016-07-10] MEDS ORDERED: ASPIRIN EC 81 MG TABEC PO SCH (09:00)
[2016-07-10] MEDS ORDERED: WARFARIN SOD 5 MG TAB PO SCH (09:00)
[2016-07-10] MEDS ORDERED: PANTOPRAZOLE SOD 40 MG DELAYED RELEASE TAB PO SCH (09:00)
[2016-07-10] MEDS ORDERED: DILTIAZEM-CD 120 MG CAP ER PO SCH (09:00)
[2016-07-10] MEDS ORDERED: TORSEMIDE 20 MG TAB PO SCH (09:00)
[2016-07-10] MEDS ORDERED: ASPI81CH CHEW (10:12)
[2016-07-10 11:00] VITALS: BP 140/68; PULSE 95; RESP 20; TEMP 98; O2SAT 93
--- NOTE | 2016-07-15 09:01 | MB ---
cc: ANGELI THOMAS M.D. DATE OF CONSULTATION: 07/14/2015. REASON FOR CONSULTATION: Vascular evaluation following recent right lower extremity endovascular intervention. REFERRING PHYSICIAN: William Weiner MD. HISTORY OF PRESENT ILLNESS: Mr. Kruger is a hypertensive diabetic male with cardiomyopathy, compensated congestive heart failure, diabetic nephropathy with chronic kidney disease. A few week ago he was brought in to [facility] for a planned endovascular intervention upon his failing right popliteal dorsalis pedis bypass. Pre-procedure evaluation revealed evidence of compensated congestive heart failure manifested by increased dyspnea, orthopnea, elevated BNP in conjunction with bilateral pleural effusions. The procedure was cancelled and he was hospitalized for the management of his cardiac decompensation. Dr. Jessee Mcfarlane saw him and began him on additional diuretics. He returned one week later and the right lower extremity endovascular intervention was accomplished without complication utilizing only CO2 as contrast (no iodinated contrast was given). On return home the following day and over the ensuing few days, he began experiencing increasing nausea with recurrent emesis. He has been unable to retain liquids. He has no abdominal complaints and continues passing flatus and having bowel movements. with minimal exertion. PHYSICAL EXAMINATION: GENERAL: Well-developed, well-nourished male with normal cognitive function, and somewhat depressed affect. LUNGS: Lungs are symmetrically expanded and clear with diminished breath sounds at the right base. CARDIAC: Rhythm is irregular. No neck vein distension or hepatojugular reflux. ABDOMEN: Abdomen is obese, soft, nontender. No hernias. No peritoneal signs. EXTREMITIES: Left leg is surgically absent below the knee with a well-healed amputation stump. The right leg exhibits surgical scars consistent with history of the popliteal dorsalis pedis bypass. The saphenous vein bypass graft is pulsatile throughout with robust biphasic Doppler flow. The right foot is warm and pink with brisk capillary refill. Minor ecchymosis surrounds the previous left common femoral access site but there is no hematoma or evidence of the pseudoaneurysm. NEUROLOGIC: No focal deficit. LABORATORY DATA: I reviewed lab data of July 04 and compared it to today's lab results. IMPRESSION: Acute kidney injury on chronic kidney disease -- most likely related to aggressive diuresis for management of decompensated heart failure. Discussed options with the patient and family. The patient will be admitted and consultations with Dr. Jessee Mcfarlane and Dr. Carlos Alberto Glover will be placed. I will follow as needed. Thank you for allowing me to participate in this gentleman's care. MD ALICIA Gregory/MOLLY /3:29 PM /9:01 AM
== END 2016-07-10 11:48 | disposition home or self-care (01) ==
LOC: HCVO 11:55 → HCPC 16:29 → HSDC 07-10 11:48
PROVIDERS: ATTEND Surgery Vascular Surgery
DX: T82.858A Stenosis of other vascular prosthetic devices, implants and grafts, initial encounter (principal); I13.0 Hypertensive heart and chronic kidney disease with heart failure and stage 1 through stage 4 chronic kidney disease, or unspecified chronic kidney disease; I50.9 Heart failure, unspecified; N17.9 Acute kidney failure, unspecified; N18.9 Chronic kidney disease, unspecified; T50.2X5A Adverse effect of carbonic-anhydrase inhibitors, benzothiadiazides and other diuretics, initial encounter; I42.9 Cardiomyopathy, unspecified; E11.21 Type 2 diabetes mellitus with diabetic nephropathy; Z01.818 Encounter for other preprocedural examination; E78.00 Pure hypercholesterolemia, unspecified
CPT/HCPCS: 01440; 37224; 75710; 82948; 85610; 85730; 86850; 86900; 86901; C1725; C1769; J0690; J1644; J1815; J2250; J2270; J2370; J3010; J7030; Q9967; 85347

== ENCOUNTER 2016-07-14 12:02 | Inpatient (IN) | payer MEDICARE ==
[~2016-07-14] VITALS: Ht 177.8 cm; Wt 108.0 kg
[2016-07-14 10:00] VITALS: BP 130/62; PULSE 100; RESP 20; TEMP 99.1; O2SAT 95
[~2016-07-14 12:02] MED LIST changes: +ASPI81CH CHEW; -BUPIVACAINE/EPINEPHRINE 0.5% PF 30 ML VIAL ONE; +COUM5TAB PO; -DILT-60 PO; -HEPA10003 SQ; -HEPARIN SODIUM - IV 10,000 UNITS/10 ML VIAL ONE; -HEPARIN SODIUM - SQ 10,000 UNITS/ML VIAL ONE; -HYDR50TA15 PO; -PANT40TA3 PO; -REST15CA PO; -TORS10TA2 PO
[2016-07-14 12:03] VITALS: BP 113/63; PULSE 100; RESP 24; TEMP 97.5; O2SAT 87
[2016-07-14 12:18] VITALS: BP 108/64; PULSE 96; RESP 26; O2SAT 99
--- NOTE | 2016-07-14 12:28 | PD ---
HPI Chief Complaint: General Weakness Time Seen by Provider: 12:14 Travel History International Travel<30 days: No Contact w/Intl Traveler<30days: No Traveled to known affect area: No History of Present Illness HPI This patient complains of generalized weakness and nausea. He had right leg angioplasty 5 days ago. 2 days after that the symptoms developed. He was wondering if the anesthesia could be the cause but not sure. He did vomit 2 times. No diarrhea. He is not having any chest or abdominal pain. No fevers. No productive cough or shortness of breath. No alleviating factors. Symptoms severity is moderate. Duration is 3 days. PFSH Past Medical History Arthritis: Yes (previously in r hip but it has been replaced) Blood Disorders: No Anxiety: No Depression: No Heart Rhythm Problems: Yes (atrial fibrillation) Cancer: No Cardiac Catheterization: Yes (1 STENT, 2002) Cardiovascular Problems: Yes High Cholesterol: Yes Chemotherapy: No Chest Pain: No Congestive Heart Failure: Yes Cerebrovascular Accident: Yes (TIAS last one 2014) Diabetes: Yes Diminished Hearing: No Endocrine: Yes Gastrointestinal Disorders: Yes Genitourinary: Yes Headaches: No Hepatitis: No Hiatal Hernia: No Hypertension: Yes Immune Disorder: No Musculoskeletal: Yes (right hip replaced due to arthritis ) Neurologic: Yes Psychiatric: No Reproductive: No Respiratory: Yes Myocardial Infarction: No Radiation Therapy: No Seizures: No Thyroid Disease: No Past Surgical History Abdominal Surgery: No AICD: No Body Medical Devices: CARDIAC STENT, Cardiac Surgery: Yes (STENT, ANGIOPLASTY) Coronary Stent: Yes (2002) Ear Surgery: No Endocrine Surgery: No Eye Surgery: No Genitourinary Surgery: Yes (REPAIR SCROTAL HERNIA around 50 yrs ago) Gynecologic Surgery: No Joint Replacement: Yes (r hip) Oral Surgery: No Pacemaker: No Thoracic Surgery: No Other Surgery: Yes (CAROTID ENDARTERECTOMY) Social History Alcohol Use: No Tobacco Use: No Substance Use: No Allergies-Medications (Allergen,Severity, Reaction): Coded Allergies: Invanz (Verified Allergy, Severe, SWELLING, 07/14/16) Sulfa (Verified Allergy, Severe, EDEMA,RASH, 07/14/16) Reported Meds & Prescriptions Reported Meds & Active Scripts Active Reported Restoril (Temazepam) 15 Mg Cap 15 Mg PO HS PRN Torsemide 10 Mg Tab 10 Mg PO DAILY IN THE EVENING Torsemide 20 Mg Tab 20 Mg PO DAILY IN THE MORNING Pantoprazole (Pantoprazole Sodium) 40 Mg Tab 40 Mg PO DAILY Hydralazine (Hydralazine HCl) 100 Mg Tab 100 Mg PO TID Take with meals Cardizem CD 24 HR (Diltiazem CD 24 HR) 120 Mg Caper 120 Mg PO DAILY Aspirin 81 Mg Chew 81 Mg CHEW DAILY Coumadin (Warfarin) 5 Mg Tab 5 Mg PO HS Gabapentin 100 Mg Cap 200 Mg PO TID PRN Atorvastatin (Atorvastatin Calcium) 40 Mg Tab 40 Mg PO HS Novolog Inj (Insulin Aspart) 1,000 Unit/10 Ml Vial 12-15 Units SQ TIDAC Lantus Inj (Insulin Glargine) 1,000 Unit/10 Ml Vial 12 Units SQ HS Cozaar (Losartan Potassium) 25 Mg Tab 25 Mg PO HS Review of Systems General / Constitutional: No: Fever Eyes: No: Visual changes HENT: No: Headaches Cardiovascular: No: Chest Pain or Discomfort Respiratory: No: Shortness of Breath Gastrointestinal: Positive: Nausea, No: Abdominal Pain Genitourinary: No: Dysuria Musculoskeletal: Positive: Weakness, No: Pain Skin: No Rash Neurologic: Positive: Weakness Psychiatric: No: Depression Endocrine: No: Polydipsia Hematologic/Lymphatic: No: Easy Bruising Physical Exam Narrative GENERAL: Well-nourished, well-developed patient in no apparent distress. SKIN: Warm and dry. HEAD: Atraumatic. Normocephalic. EYES: Pupils equal and round. No scleral icterus. No injection or drainage. ENT: No nasal bleeding or discharge. Mucous membranes pink and moist. NECK: Trachea midline. No JVD. CARDIOVASCULAR: Irregularly irregular rhythm. No murmur appreciated. RESPIRATORY: No accessory muscle use. Clear to auscultation. Breath sounds equal bilaterally. GASTROINTESTINAL: Abdomen soft, non-tender, nondistended. Hepatic and splenic margins not palpable. Has ecchymosis in the inguinal and suprapubic region and scrotum following his right leg angioplasty MUSCULOSKELETAL: Has left-sided AKA. No clubbing. No cyanosis. No edema. NEUROLOGICAL: Awake and alert. No obvious cranial nerve deficits. Motor grossly within normal limits. Normal speech. PSYCHIATRIC: Appropriate mood and affect; insight and judgment normal. Data Data Last Documented VS Vital Signs Date Time Temp Pulse Resp B/P Pulse Ox O2 Delivery O2 Flow Rate FiO2 07/14/16 12:48 96 Nasal Cannula 2 2/26/17 12:18 96 26 108/64 07/14/16 12:03 97.5 Orders Electrocardiogram (07/14/16 12:24) Complete Blood Count With Diff (07/14/16 12:24) Comprehensive Metabolic Panel (07/14/16 12:24) Urinalysis - C+S If Indicated (07/14/16 12:24) Ecg Monitoring (07/14/16 12:24) Iv Access Insert/Monitor (07/14/16 12:24) Oximetry (07/14/16 12:24) Ondansetron Inj (Zofran Inj) (07/14/16 12:30) Sodium Chloride 0.9% Flush (Ns Flush) (07/14/16 12:30) Lipase (07/14/16 12:24) Cath For Specimen (07/14/16 14:26) Chest, Single Ap (07/14/16 ) Lactic Acid (07/14/16 14:27) Blood Culture (07/14/16 14:27) Sodium Chlor 0.9% 1000 Ml Inj (Ns 1000 M (07/14/16 14:30) Urine Culture (07/14/16 14:40) Admit Order (Ed Use Only) (07/14/16 15:39) Labs Laboratory Tests Test 07/14/16 07/14/16 12:35 14:40 White Blood Count 28.7 TH/MM3 Red Blood Count 2.98 MIL/MM3 Hemoglobin 9.3 GM/DL Hematocrit 29.2 % Mean Corpuscular Volume 98.1 FL Mean Corpuscular Hemoglobin 31.1 PG Mean Corpuscular Hemoglobin 31.7 % Concent Red Cell Distribution Width 15.6 % Platelet Count 199 TH/MM3 Mean Platelet Volume 9.3 FL Neutrophils (%) (Auto) % Lymphocytes (%) (Auto) % Monocytes (%) (Auto) % Eosinophils (%) (Auto) % Basophils (%) (Auto) % Neutrophils # (Auto) TH/MM3 Lymphocytes # (Auto) TH/MM3 Monocytes # (Auto) TH/MM3 Eosinophils # (Auto) TH/MM3 Basophils # (Auto) TH/MM3 CBC Comment AUTO DIFF Differential Total Cells 100 Counted Neutrophils % (Manual) 83 % Band Neutrophils % 11 % Lymphocytes % 6 % Neutrophils # (Manual) 27.0 TH/MM3 Differential Comment FINAL DIFF MANUAL Platelet Estimate NORMAL Platelet Morphology Comment NORMAL Sodium Level 131 MEQ/L Potassium Level 4.6 MEQ/L Chloride Level 91 MEQ/L Carbon Dioxide Level 27.6 MEQ/L Anion Gap 12 MEQ/L Blood Urea Nitrogen 58 MG/DL Creatinine 4.31 MG/DL Estimat Glomerular Filtration 14 ML/MIN Rate Random Glucose 214 MG/DL Calcium Level 8.6 MG/DL Total Bilirubin 0.7 MG/DL Aspartate Amino Transf 28 U/L (AST/SGOT) Alanine Aminotransferase 31 U/L (ALT/SGPT) Alkaline Phosphatase 104 U/L Total Protein 7.0 GM/DL Albumin 3.1 GM/DL Lipase 94 U/L Urine Color DARK-YELLOW Urine Turbidity CLOUDY Urine pH 5.0 Urine Specific [place] 1.017 Urine Protein 30 mg/dL Urine Glucose (UA) NEG mg/dL Urine Ketones NEG mg/dL Urine Occult Blood SMALL Urine Nitrite NEG Urine Bilirubin NEG Urine Urobilinogen LESS THAN 2.0 MG/DL Urine Leukocyte Esterase LARGE Urine RBC 49 /hpf Urine WBC /hpf Urine WBC Clumps MANY Urine Squamous Epithelial 1 /hpf Cells Urine Bacteria OCC /hpf Urine Hyaline Casts 10 /lpf Urine Mucus FEW /lpf Microscopic Urinalysis Comment CULTURE INDICATED Lactic Acid Level 1.6 mmol/L MDM Medical Decision Making Medical Screen Exam Complete: Yes Emergency Medical Condition: Yes Medical Record Reviewed: Yes Differential Diagnosis Anesthesia reaction, gastroenteritis, colitis Narrative Course I have reviewed the patient's electronic medical record. Reviewed his history and physical from recent admission. He has extensive medical history. IV placed I gave him IV Zofran I reviewed his EKG which shows atrial fibrillation at a rate of [address] elevation CBC shows significant leukocytosis of 20,000 Metabolic profile shows hypernatremia and worsening of chronic renal failure LFTs are normal Lipase is normal His abdomen is soft and benign and nontender I reviewed his chest x-ray which shows no pulmonary edema but compensated cardiomegaly with atelectasis I think a lot of his acute problems stem from over diuresis and he looks clinically dry and his numbers support that as well I did give him 1 L normal saline Reviewed with Dr. Page his vascular surgeon who saw him in the ER. He agrees patient will require admission to fix these issues Is a complex patient with a lot of comorbidities I reviewed with hospitalist who will admit Diagnosis Primary Impression: Acute renal failure superimposed on stage 4 chronic kidney disease Additional Impressions: Hypernatremia Dehydration with hypernatremia Admitting Information Admitting Physician Requests: Admit William Weiner MD Jul 14, 2016 12:28
[2016-07-14] MEDS ORDERED: ONDANSETRON HCL 4 MG/2 ML VIAL IVP ONE (12:30)
[2016-07-14 12:48] VITALS: O2SAT 96
[2016-07-14 13:21] LABS: HEMATOCRIT 29.2 % (39.0-51.0); MEAN CELL VOLUME 98.1 FL (80.0-100.0); MEAN CORPUSCULAR HEMOGLOBIN 31.1 PG (27.0-34.0); MEAN CORPUSCULAR HGB CONC 31.7 % (32.0-36.0); PLATELET COUNT 199 TH/MM3 (150-450); RED BLOOD COUNT 2.98 MIL/MM3 (4.50-5.90); RED CELL DISTRIBUTION WIDTH 15.6 % (11.6-17.2); WHITE BLOOD COUNT 28.7 TH/MM3 (4.0-11.0)
[2016-07-14 13:27] LABS: HEMO FLAGS AUTO DIFF
[2016-07-14 13:44] LABS: ANION GAP 12 MEQ/L (5-15); AST (GOT) 28 U/L (15-37); BICARBONATE 27.6 MEQ/L (21.0-32.0); BLOOD UREA NITROGEN 58 MG/DL (7-18); CHLORIDE 91 MEQ/L (98-107); GLOMERULAR FILTRATION RATE 14 ML/MIN (>89); POTASSIUM 4.6 MEQ/L (3.5-5.1); SODIUM (NA) 131 MEQ/L (136-145)
[2016-07-14 13:47] LABS: ALKALINE PHOSPHATASE 104 U/L (45-117); ALT (GPT) 31 U/L (12-78); TOTAL BILIRUBIN ADULT 0.7 MG/DL (0.2-1.0)
[2016-07-14 14:00] LABS: BANDS 11 % (0-6); POLYS (SEG NEUTROPHILS) 83 % (16-70); WBC DIFF SAMPLE 100
[2016-07-14 14:01] LABS: PLATELET ESTIMATE SMEAR NORMAL (NORMAL); PLATELET MORPHOLOGY NORMAL (NORMAL); SCAN/DIFF FINAL DIFF MANUAL
[2016-07-14] MEDS ORDERED: TORS20TA PO (14:14)
[2016-07-14] MEDS ORDERED: PANT40TA3 PO (14:14)
[2016-07-14] MEDS ORDERED: HYDR-3801 PO (14:14)
[2016-07-14] MEDS ORDERED: REST15CA PO (14:14)
[2016-07-14] MEDS ORDERED: CARD120C4 PO (14:14)
[2016-07-14] MEDS ORDERED: TORS10TA2 PO (14:14)
[2016-07-14] MEDS ORDERED: SODIUM CHLOR 0.9% 1000 ML INJ 1,000 ML IV ONE (14:30)
--- NOTE | 2016-07-14 15:13 | RADRPT ---
EXAM DATE/TIME: 07/14/2016 14:47 [facility] COMPARISON: CHEST SINGLE AP, July 05, 2016, 5:51. INDICATIONS : Short of Breath MEDICAL HISTORY : Hypertension. Myocardial infarction. Diabetic. BPH. PVD.Hyperlipidemia. Afib. CAD. SURGICAL HISTORY : Cardiac stent ENCOUNTER: Initial ACUITY: 1 day PAIN SCORE: 0/10 LOCATION: Bilateral chest FINDINGS: A single view of the chest demonstrates minimal density left lower lobe. Right lung clear. Diminished lung volumes. The cardiomediastinal contours are unremarkable. Osseous structures are intact. CONCLUSION: 1. Cardiomegaly with left basilar density likely atelectasis. Kolby Kay MD on July 14, 2016 at 15:11 Board Certified Radiologist. This report was verified electronically.
[2016-07-14 15:38] LABS: BACTERIA, URINE OCC /hpf; BLOOD, URINE SMALL (NEG); COMMENT (UR) CULTURE INDICATED; CULTURE IF INDICATED CULTURE INDICATED; GLUCOSE,URINE NEG (NEG); HYALINE CAST, URINE 10 /lpf (RARE); KETONE, URINE NEG (NEG); MUCUS URINE FEW /lpf (OCC); NITRITE,URINE NEG (NEG); SQUAMOUS EPITHELIAL CELL URINE 1 /hpf (0-5); URINE COLOR DARK-YELLOW (YELLW/STRAW)
[2016-07-14 16:00] VITALS: BP 112/66; PULSE 96; RESP 24; O2SAT 96
--- NOTE | 2016-07-14 16:22 | HHI.HP ---
HPI Service [facility] Hospitalists Primary Care Physician Billy Treviño Admission Diagnosis acute on CRF,dehydration,hypernatremia,gen weakness Chief Complaint: weak Travel History International Travel<30 Days: No Contact w/Intl Traveler <30 Da: No Traveled to Known Affected Are: No History of Present Illness Mr. Kruger is a76 y/o male with dm2, pad, left bka,htn, pafib, ckd 4 . Pt was admitted to [facility] on 07/04/16 for elective CO2 angiography and potential endovascular intervention with Dr. Page for restenosis of the right popliteal anastomosis and potentially failing bypass graft. When the pt arrived he has been having progressive shortness of breath over the course of the past few weeks. He has had significant weight gain and has been unable to lie flat at night. He had been sleeping in a chair. Previous 2D echo (06/13/16) noted preserved EF 55-60%, grade 1 diastolic dysfunction, mild to moderate mitral regurg, and pulmonary HTN with RSVP 56mmHg. The procedure was held and pt medication was adjusted and he was diuresed. Pt was discharged and the readmitted for the procedure this past week on Friday. says he was discharged Friday and the started taking norco on Friday. That's when he developed significant nausea and vomiting. unable to hold down any food past 48hrs. he had alot of swelling of lower abdomen and groin area but now better. Review of Systems Other n/v reduced urination weak Past Family Social History Past Medical History Peripheral vascular disease Diabetes mellitus, type II HTN Hyperlipidemia Paroxysmal atrial fibrillation on chronic anticoagulation with Coumadin Right LE common fem DVT, nonocclusive in 02/2016 CAD with hx of CO Anemia BPH Chronic diastolic CHF CKD, stage IV Hx of colon polyps Carotid artery stenosis GERD Osteoarthritis Primary open-angle glaucoma 2D echo (06/13/16) - EF 55-60% - Grade 1 diastolic dysfunction - LA mildly dilated - Mild to moderate mitral valve regurg - Aortic valve sclerosis - Moderate tricuspid regurg - Moderate pulmonary htn Right total hip arthroplasty on 03/13/[address] Loyd Partial metatarsal resections, 2nd and 3rd metatarsals, right foot in 2014 Right popliteal-posterior tibial bypass in 2005 Orbital arthrectomy right posterior tibial anastomotic stenosis in 08/2013 Left BKA in 2007 Left popliteal to dorsalis pedis bypass graft, left popliteal to posterior tibial bypass using in situ greater saphenous vein in 2007 Hernia repair Right knee arthroplasty Left knee tendon repair Scrotal hernia repair Tonsillectomy Reported Medications Reported Meds & Active Scripts Active Reported Restoril (Temazepam) 15 Mg Cap 15 Mg PO HS PRN Torsemide 10 Mg Tab 10 Mg PO DAILY IN THE EVENING Torsemide 20 Mg Tab 20 Mg PO DAILY IN THE MORNING Pantoprazole (Pantoprazole Sodium) 40 Mg Tab 40 Mg PO DAILY Hydralazine (Hydralazine HCl) 100 Mg Tab 100 Mg PO TID Take with meals Cardizem CD 24 HR (Diltiazem CD 24 HR) 120 Mg Caper 120 Mg PO DAILY Aspirin 81 Mg Chew 81 Mg CHEW DAILY Coumadin (Warfarin) 5 Mg Tab 5 Mg PO HS Gabapentin 100 Mg Cap 200 Mg PO TID PRN Atorvastatin (Atorvastatin Calcium) 40 Mg Tab 40 Mg PO HS Novolog Inj (Insulin Aspart) 1,000 Unit/10 Ml Vial 12-15 Units SQ TIDAC Lantus Inj (Insulin Glargine) 1,000 Unit/10 Ml Vial 12 Units SQ HS Cozaar (Losartan Potassium) 25 Mg Tab 25 Mg PO HS Allergies: Coded Allergies: Invanz (Verified Allergy, Severe, SWELLING, 07/14/16) Sulfa (Verified Allergy, Severe, EDEMA,RASH, 07/14/16) Family History Mother at age 58 from colon cancer Father with hx of prostate cancer Social History Hx of heavy alcohol use, none for the last 6-7 years Hx of tobacco use Pt lives locally with his spouse 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 bs. nt lower abdomen bruising from recent surgery ext no pitting. left bka Vital Signs Date Time Temp Pulse Resp B/P Pulse Ox O2 Delivery O2 Flow Rate FiO2 07/14/16 12:48 96 Nasal Cannula 2 07/14/16 12:18 96 26 108/64 99 Room Air 07/14/16 12:03 97.5 100 24 113/63 87 Room Air Laboratory Laboratory Tests Test 07/14/16 07/14/16 12:35 14:40 White Blood Count 28.7 Red Blood Count 2.98 Hemoglobin 9.3 Hematocrit 29.2 Mean Corpuscular Volume 98.1 Mean Corpuscular Hemoglobin 31.1 Mean Corpuscular Hemoglobin 31.7 Concent Red Cell Distribution Width 15.6 Platelet Count 199 Mean Platelet Volume 9.3 Neutrophils (%) (Auto) Lymphocytes (%) (Auto) Monocytes (%) (Auto) Eosinophils (%) (Auto) Basophils (%) (Auto) Neutrophils # (Auto) Lymphocytes # (Auto) Monocytes # (Auto) Eosinophils # (Auto) Basophils # (Auto) CBC Comment AUTO DIFF Differential Total Cells 100 Counted Neutrophils % (Manual) 83 Band Neutrophils % 11 Lymphocytes % 6 Neutrophils # (Manual) 27.0 Differential Comment FINAL DIFF MANUAL Platelet Estimate NORMAL Platelet Morphology Comment NORMAL Sodium Level 131 Potassium Level 4.6 Chloride Level 91 Carbon Dioxide Level 27.6 Anion Gap 12 Blood Urea Nitrogen 58 Creatinine 4.31 Estimat Glomerular Filtration 14 Rate Random Glucose 214 Calcium Level 8.6 Total Bilirubin 0.7 Aspartate Amino Transf 28 (AST/SGOT) Alanine Aminotransferase 31 (ALT/SGPT) Alkaline Phosphatase 104 Total Protein 7.0 Albumin 3.1 Lipase 94 Urine Color DARK-YELLOW Urine Turbidity CLOUDY Urine pH 5.0 Urine Specific Saxis 1.017 Urine Protein 30 Urine Glucose (UA) NEG Urine Ketones NEG Urine Occult Blood SMALL Urine Nitrite NEG Urine Bilirubin NEG Urine Urobilinogen LESS THAN 2.0 Urine Leukocyte Esterase LARGE Urine RBC 49 Urine WBC Urine WBC Clumps MANY Urine Squamous Epithelial 1 Cells Urine Bacteria OCC Urine Hyaline Casts 10 Urine Mucus FEW Microscopic Urinalysis Comment CULTURE INDICATED Lactic Acid Level 1.6 Date/Time Procedure Status Source Growth 07/14/16 14:40 Urine Culture Received Urine Clean Catch Pending 07/14/16 14:35 Aerobic Blood Culture Received Blood Peripheral Pending 07/14/16 14:35 Anaerobic Blood Culture Received Blood Peripheral Pending Result Diagram: 07/14/16 1235 07/14/16 1235 Assessment and Plan Problem List: (1) Acute renal failure superimposed on stage 4 chronic kidney disease Status: Acute Plan: Pt had right fem/pop tibial co2 angiogram with balloon angioplasty on for stenosis he was admitted on 07/04 for decompensation of diatolic chf and diuresed. meds adjusted. After his procedure pt was using norco which made him nauseated and subsequent vomiting with poor po intake. acute on ckd 4 leukocytosis. no fever currently. could be from vomiting/dehydration but eval for infection source had described abdomen distention a few days. evaluate for ileus kub. consider ct a/p recheck wbc in AM u/a and cx ivf recheck kidney function consult nephrology hod diuretic and arb renal u/s cont anticouagulation. pt seen by Dr Page in ED. (2) Leukocytosis Status: Acute Plan: see above (3) Diabetes mellitus Status: Chronic Plan: ssi. hold scheduled insulin (4) Diastolic dysfunction Status: Chronic Plan: hold diuretics until dehydration corrected (5) Paroxysmal atrial fibrillation Status: Chronic Plan: stable (6) PVD (peripheral vascular disease) Status: Chronic (7) HTN (hypertension) Status: Chronic Plan: see above Physician Certification 2 Midnight Certification Type: Admission for Inpatient Services Order for Inpatient Services 3The services are ordered in accordance with Medicare regulations or non- Medicare payer requirements, as applicable. In the case of services not specified as inpatient-only, they are appropriately provided as inpatient services in accordance with the 2-midnight benchmark. Estimated LOS (days): 3 3 days is the estimated time the patient will need to remain in the hospital, assuming treatment plan goals are met and no additional complications. Post-Hospital Plan: Home Jose C Calderon MD Jul 14, 2016 16:21
[2016-07-14] MEDS ORDERED: ONDANSETRON HCL 4 MG/2 ML VIAL IV PUSH PRN (16:30)
[2016-07-14] MEDS ORDERED: TEMAZEPAM 15 MG CAP PO PRN (16:30)
[2016-07-14] MEDS: SODIUM CHLOR 0.9% 1000 ML INJ 1,000 ML IV SCH (17:02)
--- NOTE | 2016-07-14 17:02 | RADRPT ---
EXAM DATE/TIME: 07/14/2016 16:48 [facility] COMPARISON: No previous studies available for comparison. INDICATIONS : Distention. Genital pain and swelling. MEDICAL HISTORY : Diabetes mellitus type II. Enlarged prostate. SURGICAL HISTORY : Right leg angioplasty. ENCOUNTER: Initial ACUITY: 4 - 6 days PAIN SCORE: 5/10 LOCATION: Genitals. FINDINGS: Supine view of the abdomen was performed. Gaseous distention of bowel loops. The abdominal bowel gas pattern is normal. No abnormal masses, calcifications, or organomegaly is seen. The osseous struct ures are unremarkable. Vascular calcifications. Right hip prosthesis. CONCLUSION: Gaseous distention of bowel loops without obstruction. Kolby Kay MD on July 14, 2016 at 17:00 Board Certified Radiologist. This report was verified electronically.
[2016-07-14] MEDS ORDERED: SIMETHICONE 125 MG CHEWABLE TAB PO ONE (17:45)
[2016-07-14] MEDS ORDERED: GLUCAGON 1 MG/ML VIAL OTHER PRN (18:00)
[2016-07-14] MEDS ORDERED: PANTOPRAZOLE SODIUM 40 MG VIAL IV PUSH ONE (18:00)
[2016-07-14] MEDS ORDERED: DEXTROSE 50% IN WATER 50 ML VIAL(D50) IV PUSH PRN (18:00)
--- NOTE | 2016-07-14 18:23 | RADRPT ---
EXAM DATE/TIME: 07/14/2016 17:36 [facility] COMPARISON: US KIDNEY/RENAL/BLADDER, July 04, 2016, 22:05. INDICATIONS : Acute kidney injury. MEDICAL HISTORY : Compression fracture. Hypercholesterolemia. Hypertension. Neuropathy. Congestive heart failure. Afib. Arthritis. Deep vein thrombosis. Blood transfusion. Diabetes. Renal disease. Transient ischemic charles ck. SURGICAL HISTORY : Angioplasty. Carotid endarterectomy. Coronary artery stent. Right hip replacement. Repair scrotal her jude. Left below the knee amputation. Right toe amputation. ENCOUNTER: [facility] ACUITY: 1 day PAIN SCORE: 2/10 LOCATION: Bilateral flank MEASUREMENTS: RIGHT KIDNEY: 12.7 x 6.0 x 5.7 cm LEFT KIDNEY: 13.0 x 5.6 x 6.4 cm FINDINGS: RIGHT KIDNEY: Renal cortex is normal in thickness and echotexture. No hydronephrosis, stone, or mass. Simple cyst upper pole measures 18 x 16 x 15 mm. LEFT KIDNEY: Renal cortex is normal in thickness and echotexture. No hydronephrosis, stone, or mass. Simple cyst upper pole measures 20 x 21 x 18 mm. BLADDER: Not well distended but appears normal. CONCLUSION: 1. Bilateral simple renal cysts. 2. Incidental note is evidence of cholelithiasis. 3. No hydronephrosis. Kolby Kay MD on July 14, 2016 at 18:19 Board Certified Radiologist. This report was verified electronically.
[2016-07-14 19:43] LABS: INTERNATIONAL NORMALIZED RATIO 1.7 RATIO; PROTHROMBIN TIME - PATIENT 19.1 SEC (9.8-11.6)
[2016-07-14 22:00] VITALS: BP 130/62; PULSE 100; RESP 20; TEMP 99.1; O2SAT 95
[2016-07-14] MEDS: SIMETHICONE 125 MG CHEWABLE TAB PO SCH (22:00)
[2016-07-14] MEDS: WARFARIN SOD 5 MG TAB PO SCH (22:01)
[2016-07-14] MEDS: INSULIN ASPART SUPPLEMENTAL SCALE SQ SCH (22:02)
[2016-07-14] MEDS: ATORVASTATIN 40 MG TAB PO SCH (22:02)
[2016-07-14] MEDS ORDERED: ACETAMINOPHEN 500 MG CPLT PO PRN (22:45)
[2016-07-15] VITALS (8 sets, daily range): BP systolic 113–130; BP diastolic 56–70; PULSE 86–104; RESP 16–24; TEMP 97.4–100.3; O2SAT 91–97
[2016-07-15] MEDS: SIMETHICONE 125 MG CHEWABLE TAB PO SCH ×3 (06:01→20:16)
[2016-07-15] MEDS: INSULIN ASPART SUPPLEMENTAL SCALE SQ SCH ×4 (06:02→20:17)
--- NOTE | 2016-07-15 06:53 | RADRPT ---
EXAM DATE/TIME: 07/15/2016 05:28 [facility] COMPARISON: ABDOMEN KUB ONLY, July 14, 2016, 16:48. INDICATIONS : Abdominal distention, no abdominal pain MEDICAL HISTORY : Diabetes mellitus type II. abdominal distention SURGICAL HISTORY : right lower extremity angioplasty, right hip replaced ENCOUNTER: Subsequent ACUITY: 1 week PAIN SCORE: 0/10 LOCATION: Bilateral abdomen FINDINGS: Mild ileus. No obstruction or free air. Previous right hip replacement. No acute findings. CONCLUSION: 1. Mild ileus. Alpesh Stokes MD on July 15, 2016 at 6:50 Board Certified Radiologist. This report was verified electronically.
[2016-07-15] MEDS: DILTIAZEM-CD 120 MG CAP ER PO SCH (08:09)
[2016-07-15] MEDS: ASPIRIN 81 MG CHEW TAB CHEW SCH (08:09)
[2016-07-15] MEDS: PANTOPRAZOLE SOD 40 MG DELAYED RELEASE TAB PO SCH (08:09)
[2016-07-15] MEDS ORDERED: HEPARIN SODIUM - SQ 10,000 UNITS/ML VIAL SQ SCH (09:00)
[2016-07-15 09:03] LABS: AUTOMATED NEUTROPHIL # 18.9 TH/MM3 (1.8-7.7); BASOPHIL # 0.1 TH/MM3 (0-0.2); BASOPHIL % 0.5 % (0.0-2.0); HEMATOCRIT 28.5 % (39.0-51.0); LYMPH % 2.5 % (9.0-44.0); LYMPHOCYTE # 0.5 TH/MM3 (1.0-4.8); MEAN CELL VOLUME 97.4 FL (80.0-100.0); MEAN CORPUSCULAR HEMOGLOBIN 31.8 PG (27.0-34.0); MEAN CORPUSCULAR HGB CONC 32.7 % (32.0-36.0); MONO % 5.9 % (0.0-8.0); NEUT % 91.1 % (16.0-70.0); PLATELET COUNT 216 TH/MM3 (150-450); RED BLOOD COUNT 2.93 MIL/MM3 (4.50-5.90); RED CELL DISTRIBUTION WIDTH 15.5 % (11.6-17.2); WHITE BLOOD COUNT 20.8 TH/MM3 (4.0-11.0)
[2016-07-15 09:06] LABS: HEMO FLAGS AUTO DIFF
[2016-07-15 09:31] LABS: POTASSIUM 4.2 MEQ/L (3.5-5.1)
[2016-07-15 09:44] LABS: BANDS 13 % (0-6); BASOPHILS 1 % (0-2); NEUTROPHIL # MANUAL DIFF 19.6 TH/MM3 (1.8-7.7); PLATELET ESTIMATE SMEAR NORMAL (NORMAL); PLATELET MORPHOLOGY NORMAL (NORMAL); POLYS (SEG NEUTROPHILS) 81 % (16-70); TOXIC VACUOLATION PRESENT (NONE SEEN); WBC DIFF SAMPLE 100
[2016-07-15 09:45] LABS: SCAN/DIFF FINAL DIFF MANUAL
--- NOTE | 2016-07-15 12:03 | EKG ---
Date Performed: 07/14/2016 Time Performed: 12:25:14 PTAGE: 76 years EKG: ATRIAL FIBRILLATION ST DEVIATION AND MODERATE T-WAVE ABNORMALITY, CONSIDER LATERAL ISCHEMIA Compared to prior tracing ST T wave changes are more prominent in the lateral leads ABNORMAL ECG PREVIOUS TRACING : 07/07/2016 14.13 DOCTOR: Mihai Pierson Interpretating Date/Time 07/15/2016 12:03:03
[2016-07-15] MEDS: SODIUM CHLOR 0.9% 1000 ML INJ 1,000 ML IV SCH ×2 (12:33→18:24)
[2016-07-15] MEDS: WARFARIN SOD 5 MG TAB PO SCH (15:57)
--- NOTE | 2016-07-15 17:33 | HHI.PR ---
Subjective Remarks No new complaints. Objective Vitals Vital Signs Date Time Temp Pulse Resp B/P Pulse Ox O2 Delivery O2 Flow Rate FiO2 07/15/16 16:00 98.0 86 20 129/62 92 07/15/16 12:00 100.3 88 20 116/59 94 07/15/16 09:00 99.5 92 20 113/56 93 07/15/16 08:00 99.2 92 24 117/60 91 07/15/16 08:00 95 07/15/16 08:00 Nasal Cannula 2.00 07/15/16 04:00 99.6 104 20 130/70 93 07/15/16 01:05 88 07/15/16 00:00 Room Air 07/15/16 00:00 98.5 96 16 113/58 97 07/14/16 22:00 99.1 100 20 130/62 95 07/14/16 21:13 Nasal Cannula 2.00 07/14/16 07/14/16 07/15/16 15:00 23:00 07:00 # Voids 1 1 # Bowel Movements 0 0 Result Diagram: 07/15/16 0751 07/15/16 0751 Imaging Last Impressions Abdomen X-Ray 07/15/16 0600 Signed Impressions: Service Date/Time: Friday, July 15, 2016 05:28 - CONCLUSION: 1. Mild ileus. Alpesh Stokes MD Renal Ultrasound 07/14/16 0000 Signed Impressions: Service Date/Time: Thursday, July 14, 2016 17:36 - CONCLUSION: 1. Bilateral simple renal cysts. 2. Incidental note is evidence of cholelithiasis. 3. No hydronephrosis. Kolby Kay MD Chest X-Ray 07/14/16 0000 Signed Impressions: Service Date/Time: Thursday, July 14, 2016 14:47 - CONCLUSION: 1. Cardiomegaly with left basilar density likely atelectasis. Kolby Kay MD Objective Remarks GENERAL: This is a well-nourished, well-developed patient, in no apparent distress. CARDIOVASCULAR: Regular rate and rhythm without murmurs, gallops, or rubs. RESPIRATORY: Clear to auscultation. Breath sounds equal bilaterally. No wheezes , rales, or rhonchi. GASTROINTESTINAL: Abdomen soft, non-tender, nondistended. Normal active bowel sounds MUSCULOSKELETAL: Extremities without clubbing, cyanosis, or edema. NEURO: Alert & Oriented x4 to person, place, time, situation. Moves all ext x4 A/P Problem List: (1) Bacteremia due to Gram-negative bacteria Status: Acute Plan: - start zosyn, renal dosing - follow culture results (2) Acute renal failure superimposed on stage 4 chronic kidney disease Status: Acute Plan: Pt had right fem/pop tibial co2 angiogram with balloon angioplasty on for stenosis he was admitted on 07/04 for decompensation of diatolic chf and diuresed. meds adjusted. After his procedure pt was using norco which made him nauseated and subsequent vomiting with poor po intake. acute on ckd 4 leukocytosis. no fever currently. could be from vomiting/dehydration but eval for infection source had described abdomen distention a few days. evaluate for ileus kub. consider ct a/p recheck wbc in AM u/a and cx ivf recheck kidney function consult nephrology hod diuretic and arb renal u/s cont anticouagulation. pt seen by Dr Page in ED. 07/15/16 - case d/w Dr. Glover - changed IVF rate to NS at 100ml/hr - repeat BMP in AM (3) Leukocytosis Status: Acute Plan: see above (4) Diabetes mellitus Status: Chronic Plan: ssi. hold scheduled insulin (5) Diastolic dysfunction Status: Chronic Plan: hold diuretics until dehydration corrected (6) Paroxysmal atrial fibrillation Status: Chronic Plan: stable (7) PVD (peripheral vascular disease) Status: Chronic (8) HTN (hypertension) Status: Chronic Plan: see above Problem Qualifiers (1) Diabetes mellitus: Qualified Code: E11.8 - Type 2 diabetes mellitus with complication, with long- term current use of insulin Jeremi Mercer DO Jul 15, 2016 17:32
--- NOTE | 2016-07-15 18:18 | PD.CONS ---
HPI Consult Requested By Reason for Consult Acute on chronic renal insufficiency. Primary Care Physician Billy Treviño History of Present Illness This patient is a 76-year-old male with known history of chronic kidney disease stage IV secondary to diabetic nephropathy. Patient also has a history of a cardiomyopathy as well as congestive heart failure and previous bladder outlet obstruction. Patient was recently hospitalized with cardiac decompensation which responded well to diuresis. There was also noted episodes of acute renal insufficiency last year. At the time of discharge last admission for congestive heart failure his creatinine was 2.3 to with an estimated GFR of 28. Patient subsequently underwent a CO2 angiogram of a right femoropopliteal on July 09, 2016. He underwent a successful percutaneous angioplasty for stenosis of a vein graft. Patient however presented this admission with complaints of nausea and vomiting 48 hours. Culture and urine culture growing gram-negative rods at time of consultation. Antibiotic therapy initiated today. Patient denies shortness of breath. Review of Systems Constitutional: COMPLAINS OF: Fatigue, DENIES: Diaphoretic episodes, Fever, Weight gain, Weight loss, Chills, Dizziness, Change in appetite, Night Sweats Respiratory: DENIES: Apneas, Cough, Snoring, Wheezing, Hemoptysis, Sputum production, Shortness of breath Cardiovascular: COMPLAINS OF: Lower Extremity Edema, DENIES: Chest pain, Palpitations, Syncope, Dyspnea on Exertion, PND, Orthopnea, Claudication Gastrointestinal: COMPLAINS OF: Nausea (improved.), Vomiting (improved.), DENIES: Abdominal pain, Black stools, Bloody stools, Constipation, Diarrhea, Difficulty Swallowing, Anorexia Musculoskeletal: COMPLAINS OF: Joint pain, DENIES: Muscle aches, Stiffness, Joint Swelling, Back pain, Neck pain Past Family Social History Allergies: Coded Allergies: Invanz (Verified Allergy, Severe, SWELLING, 07/14/16) Sulfa (Verified Allergy, Severe, EDEMA,RASH, 07/14/16) Past Medical History Chronic kidney disease stage IV Hypertension Diabetes mellitus Peripheral vascular disease Congestive heart failure Previous bladder outlet obstruction Paroxysmal atrial fibrillation Past Surgical History History of a left BKA PTCA. Reported Medications Reported Meds & Active Scripts Active Reported Restoril (Temazepam) 15 Mg Cap 15 Mg PO HS PRN Torsemide 10 Mg Tab 10 Mg PO DAILY IN THE EVENING Torsemide 20 Mg Tab 20 Mg PO DAILY IN THE MORNING Pantoprazole (Pantoprazole Sodium) 40 Mg Tab 40 Mg PO DAILY Hydralazine (Hydralazine HCl) 100 Mg Tab 100 Mg PO TID Take with meals Cardizem CD 24 HR (Diltiazem CD 24 HR) 120 Mg Caper 120 Mg PO DAILY Aspirin 81 Mg Chew 81 Mg CHEW DAILY Coumadin (Warfarin) 5 Mg Tab 5 Mg PO HS Gabapentin 100 Mg Cap 200 Mg PO TID PRN Atorvastatin (Atorvastatin Calcium) 40 Mg Tab 40 Mg PO HS Novolog Inj (Insulin Aspart) 1,000 Unit/10 Ml Vial 12-15 Units SQ TIDAC Lantus Inj (Insulin Glargine) 1,000 Unit/10 Ml Vial 12 Units SQ HS Cozaar (Losartan Potassium) 25 Mg Tab 25 Mg PO HS Active Ordered Medications Current Medications Ondansetron HCl (Zofran Inj) 4 mg ONCE ONCE IVP Last administered on 12:39; Start 07/14/16 at 12:30; Stop 07/14/16 at 12:31; Status DC IV Flush 2 ml 2 ml UNSCH PRN IVF FLUSH AFTER USING IV ACCESS; Start 07/14/16 at 12:30 Sodium Chloride 1,000 ml @ 2,000 mls/hr Q30M ONCE IV Last administered on 07/14 15:11; Start 07/14/16 at 14:30; Stop 07/14/16 at 14:59; Status DC Sodium Chloride (NS 1000 ml Inj) 1,000 ml @ 50 mls/hr Q20H IV Last administered on 07/15/16 12:33; Start 07/14/16 at 16:30; Stop 07/15/16 at 17:29 ; Status DC Heparin Sodium (Porcine) (Heparin Inj) 5,000 units Q12HR SQ ; Start 07/15/16 at 09:00; Stop 07/15/16 at 09:00; Status DC Aspirin (Aspirin Chew) 81 mg DAILY CHEW Last administered on 07/15/16 08:09; Start 07/15/16 at 09:00 Atorvastatin Calcium (Lipitor) 40 mg HS PO Last administered on 07/14/16 22:02 ; Start 07/14/16 at 21:00 Diltiazem HCl (Cardizem Cd) 120 mg DAILY PO Last administered on 07/15/16 08: 09; Start 07/15/16 at 09:00 Pantoprazole Sodium (Protonix) 40 mg DAILY PO Last administered on 07/15/16 08 :09; Start 07/15/16 at 09:00 Temazepam (Restoril) 15 mg HS PRN PO INSOMNIA Last administered on 07/15/16 00 :40; Start 07/14/16 at 16:30 Warfarin Sodium (Coumadin) 5 mg DAILY@16 PO Last administered on 07/15/16 15: 57; Start 07/14/16 at 17:00 Insulin Aspart (NovoLOG SUPPLEMENTAL SCALE) 1 ACHS SLIDING SCALE SQ Last administered on 07/15/16 15:56; Start 07/14/16 at 21:00 Ondansetron HCl (Zofran Inj) 4 mg Q4HR PRN IV PUSH n/v; Start 07/14/16 at 16:30 Pantoprazole Sodium (Protonix Inj) 40 mg ONCE ONCE IV PUSH Last administered on 07/14/16 22:02; Start 07/14/16 at 18:00; Stop 07/14/16 at 18:01; Status DC Simethicone (Phazyme Chew) 125 mg Q8HR PO Last administered on 07/15/16 13:32 ; Start 07/14/16 at 22:00 Simethicone (Phazyme Chew) 125 mg ONCE ONCE PO Last administered on 07/14/16 18:32; Start 07/14/16 at 17:45; Stop 07/14/16 at 17:50; Status DC Dextrose (D50w (Vial) Inj) 25 ml UNSCH PRN IV PUSH HYPOGLYCEMIA - SEE COMMENTS ; Start 07/14/16 at 18:00 Glucagon (Glucagon Inj) 1 mg UNSCH PRN OTHER HYPOGLYCEMIA-SEE COMMENTS; Start 07/14/16 at 18:00 Acetaminophen (Tylenol) 500 mg Q6H PRN PO PAIN 1-4; Start 07/14/16 at 22:45 Acetaminophen 1000 mg 1,000 mg Q6H PRN PO PAIN 5-10; Start 07/14/16 at 22:45 Piperacillin Sod/ Tazobactam Sod 50 ml @ 100 mls/hr Q6H IV ; Start 07/15/16 at 17:30; Status UNV Sodium Chloride (NS 1000 ml Inj) 1,000 ml @ 100 mls/hr Q10H IV ; Start at 17:30; Status UNV Family History Noncontributory to current complaint. Social History No current history of illicit drug use. No history of alcohol abuse. Physical Exam Vital Signs Vital Signs Date Time Temp Pulse Resp B/P Pulse Ox O2 Delivery O2 Flow Rate FiO2 07/15/16 16:00 98.0 86 20 129/62 92 07/15/16 12:00 100.3 88 20 116/59 94 07/15/16 09:00 99.5 92 20 113/56 93 07/15/16 08:00 99.2 92 24 117/60 91 07/15/16 08:00 95 07/15/16 08:00 Nasal Cannula 2.00 07/15/16 04:00 99.6 104 20 130/70 93 07/15/16 01:05 88 07/15/16 00:00 Room Air 07/15/16 00:00 98.5 96 16 113/58 97 07/14/16 22:00 99.1 100 20 130/62 95 07/14/16 21:13 Nasal Cannula 2.00 Physical Exam GENERAL: Patient not in respiratory distress. SKIN: Warm and dry. HEAD: Normocephalic. EYES: No scleral icterus. No injection or drainage. NECK: Supple, trachea midline. No JVD or lymphadenopathy. CARDIOVASCULAR: Regular rate and rhythm without murmurs, gallops, or rubs. RESPIRATORY: Breath sounds equal bilaterally. No accessory muscle use. GASTROINTESTINAL: Abdomen soft, non-tender, nondistended. Bladder not percussible above pubic symphysis. MUSCULOSKELETAL: No cyanosis, trace edema of the hips, dependent thigh and ankle. BACK: Nontender without obvious deformity. No CVA tenderness. Laboratory Laboratory Tests Test 07/14/16 07/15/16 18:25 07:51 Prothrombin Time 19.1 Prothromb Time International 1.7 Ratio White Blood Count 20.8 Red Blood Count 2.93 Hemoglobin 9.3 Hematocrit 28.5 Mean Corpuscular Volume 97.4 Mean Corpuscular Hemoglobin 31.8 Mean Corpuscular Hemoglobin 32.7 Concent Red Cell Distribution Width 15.5 Platelet Count 216 Mean Platelet Volume 9.3 Neutrophils (%) (Auto) 91.1 Lymphocytes (%) (Auto) 2.5 Monocytes (%) (Auto) 5.9 Eosinophils (%) (Auto) 0.0 Basophils (%) (Auto) 0.5 Neutrophils # (Auto) 18.9 Lymphocytes # (Auto) 0.5 Monocytes # (Auto) 1.2 Eosinophils # (Auto) 0.0 Basophils # (Auto) 0.1 CBC Comment AUTO DIFF Differential Total Cells 100 Counted Neutrophils % (Manual) 81 Band Neutrophils % 13 Lymphocytes % 2 Monocytes % 3 Basophils % 1 Neutrophils # (Manual) 19.6 Differential Comment FINAL DIFF MANUAL Toxic Vacuolation PRESENT Platelet Estimate NORMAL Platelet Morphology Comment NORMAL Sodium Level 128 Potassium Level 4.2 Chloride Level 90 Carbon Dioxide Level 24.0 Anion Gap 14 Blood Urea Nitrogen 64 Creatinine 5.13 Estimat Glomerular Filtration 11 Rate Random Glucose 130 Calcium Level 7.9 Date/Time Procedure Status Source Growth 07/14/16 14:40 Urine Culture - Preliminary Resulted Urine Clean Catch Gram Negative Tyron 07/14/16 14:35 Aerobic Blood Culture - Preliminary Resulted Blood Peripheral NO GROWTH IN 1 DAY 07/14/16 14:35 Anaerobic Blood Culture - Preliminary Resulted Gram Negative Tyron Result Diagram: 07/15/16 0751 07/15/16 0751 Imaging Last 48 hours Impressions Abdomen X-Ray 07/15/16 0600 Signed Impressions: Service Date/Time: Friday, July 15, 2016 05:28 - CONCLUSION: 1. Mild ileus. Alpesh Stokes MD Renal Ultrasound 07/14/16 0000 Signed Impressions: Service Date/Time: Thursday, July 14, 2016 17:36 - CONCLUSION: 1. Bilateral simple renal cysts. 2. Incidental note is evidence of cholelithiasis. 3. No hydronephrosis. Kolby Kay MD Chest X-Ray 07/14/16 0000 Signed Impressions: Service Date/Time: Thursday, July 14, 2016 14:47 - CONCLUSION: 1. Cardiomegaly with left basilar density likely atelectasis. Kolby Kay MD Abdomen X-Ray 07/14/16 0000 Signed Impressions: Service Date/Time: Thursday, July 14, 2016 16:48 - CONCLUSION: Gaseous distention of bowel loops without obstruction. Kolby Kay MD Assessment and Plan Problem List: (1) Acute renal insufficiency Plan: Acute renal insufficiency most likely secondary to previous dehydration now with superimposed urosepsis. Unfortunately the patient may have developed acute tubular necrosis in which case his azotemia may continue to worsen despite IV fluids. I will continue to monitor. I discussed the severity of the patient's renal insufficiency with the patient and his . They were advised that if his azotemia continues to deteriorate we may have to consider renal replacement therapy i.e. dialysis. There is no evidence of significant obstruction i.e. hydronephrosis on ultrasound. Defer antibiotic therapy to primary care physician. Continue with gentle hydration for the present. Monitor volume status in view of history of CHF. Medications should be adjusted for the patient's estimated GFR if clinically indicated. Avoid agents with significant potential for nephrotoxicity possible including NSAIDs for analgesia, iodine contrast agents. Gadolinium is contraindicated if the GFR is below 30.. (2) CKD (chronic kidney disease) stage 4, GFR 15-29 ml/min Plan: Secondary to diabetic nephropathy with probable superimposed hypertensive nephrosclerosis. (3) HTN (hypertension) (4) Hyponatremia Plan: Secondary to impaired free water clearance related to low GFR as well as probable non-osmotic simulation of antidiuretic hormone secretion. (5) Diabetes mellitus (6) Anemia of renal disease Plan: Check iron saturation and ferritin. Discussed Condition With With patient's with his permission. Problem Qualifiers (1) Diabetes mellitus: Qualified Code: E11.8 - Type 2 diabetes mellitus with complication, with long- term current use of insulin Pankaj Glover MD Jul 15, 2016 18:18
[2016-07-15] MEDS: ATORVASTATIN 40 MG TAB PO SCH (20:16)
[2016-07-15] MEDS: ACETAMINOPHEN 500 MG CPLT PO PRN (20:17)
[2016-07-15] MEDS: PIPERACIL-TAZO 2.25 GM PREMIX 50 ML IV SCH (21:00)
[2016-07-16] VITALS (9 sets, daily range): BP systolic 96–125; BP diastolic 56–76; PULSE 84–98; RESP 20–22; TEMP 97.7–99; O2SAT 92–96
[2016-07-16] MEDS: PIPERACIL-TAZO 2.25 GM PREMIX 50 ML IV SCH ×4 (01:50→21:52)
[2016-07-16] MEDS: ACETAMINOPHEN 500 MG CPLT PO PRN ×3 (04:18→23:19)
[2016-07-16] MEDS: INSULIN ASPART SUPPLEMENTAL SCALE SQ SCH ×4 (06:23→21:51)
[2016-07-16] MEDS: SIMETHICONE 125 MG CHEWABLE TAB PO SCH ×3 (06:23→21:51)
[2016-07-16] MEDS: SODIUM CHLOR 0.9% 1000 ML INJ 1,000 ML IV SCH ×2 (06:24→15:25)
--- NOTE | 2016-07-16 09:02 | HHI.NPPN ---
Subjective History of Present Illness This patient is a 76-year-old male with known history of chronic kidney disease stage IV secondary to diabetic nephropathy. Patient also has a history of a cardiomyopathy as well as congestive heart failure and previous bladder outlet obstruction. Patient was recently hospitalized with cardiac decompensation which responded well to diuresis. There was also noted episodes of acute renal insufficiency last year. At the time of discharge last admission for congestive heart failure his creatinine was 2.3 to with an estimated GFR of 28. Patient subsequently underwent a CO2 angiogram of a right femoropopliteal on July 09, 2016. He underwent a successful percutaneous angioplasty for stenosis of a vein graft. Patient however presented this admission with complaints of nausea and vomiting 48 hours. Culture and urine culture growing gram-negative rods at time of consultation. Antibiotic therapy initiated today. Patient denies shortness of breath. Interval History Pt not feeling well today. present in room. Says he has been chilled with rigors. Was very lethargic and developed urinary retention last evening and now has Garcia. (Anna Marie Benites) Review of Systems General Constitutional: Fever, Chills, Fatigue (Anna Marie Benites) Objective Data Data 07/15/16 07/16/16 19:00 07:00 Intake Total 1237 ml 1600 ml Output Total 250 ml 250 ml Balance 987 ml 1350 ml Intake Oral 840 ml 480 ml IV Total 397 ml 1120 ml Output Urine Total 250 ml 250 ml # Bowel Movements 0 0 Vital Signs Date Time Temp Pulse Resp B/P Pulse Ox O2 Delivery O2 Flow Rate FiO2 07/16/16 04:00 98.8 98 20 125/76 93 07/16/16 00:00 98.6 84 20 104/56 96 07/15/16 20:00 97.4 89 20 122/67 92 07/15/16 20:00 Nasal Cannula 2.00 07/15/16 16:00 98.0 86 20 129/62 92 07/15/16 12:00 100.3 88 20 116/59 94 07/15/16 09:00 99.5 92 20 113/56 93 (Anna Marie Benites) -: 07/15/16 0751 07/15/16 0751 Imaging Last Impressions Abdomen X-Ray 07/15/16 0600 Signed Impressions: Service Date/Time: Friday, July 15, 2016 05:28 - CONCLUSION: 1. Mild ileus. Alpesh Stokes MD Renal Ultrasound 07/14/16 0000 Signed Impressions: Service Date/Time: Thursday, July 14, 2016 17:36 - CONCLUSION: 1. Bilateral simple renal cysts. 2. Incidental note is evidence of cholelithiasis. 3. No hydronephrosis. Kolby Kay MD Chest X-Ray 07/14/16 0000 Signed Impressions: Service Date/Time: Thursday, July 14, 2016 14:47 - CONCLUSION: 1. Cardiomegaly with left basilar density likely atelectasis. Kolby Kay MD Medication Review Current Medications Medications (Trade) Dose Ordered Sig/Flaquito Route Start Time Stop Time Status Last Admin (NS Flush) 2 ml UNSCH PRN IVF 07/14/16 12:30 (Aspirin Chew) 81 mg DAILY CHEW 07/15/16 09:00 07/15/16 08:09 (Lipitor) 40 mg HS PO 07/14/16 21:00 07/15/16 20:16 (Cardizem Cd) 120 mg DAILY PO 07/15/16 09:00 07/15/16 08:09 (Protonix) 40 mg DAILY PO 07/15/16 09:00 07/15/16 08:09 (Restoril) 15 mg HS PRN PO 07/14/16 16:30 07/15/16 00:40 (Coumadin) 5 mg DAILY@16 PO 07/14/16 17:00 07/15/16 15:57 (Zofran Inj) 4 mg Q4HR PRN IV PUSH 07/14/16 16:30 07/15/16 22:38 (Phazyme Chew) 125 mg Q8HR PO 07/14/16 22:00 07/16/16 06:23 (D50w (Vial) Inj) 25 ml UNSCH PRN IV PUSH 07/14/16 18:00 (Glucagon Inj) 1 mg UNSCH PRN OTHER 07/14/16 18:00 (Tylenol) 500 mg Q6H PRN PO 07/14/16 22:45 Acetaminophen 1000 mg 1,000 mg Q6H PRN PO 07/14/16 22:45 07/16/16 04:18 Piperacillin Sod/ Tazobactam Sod 50 ml @ 100 mls/hr Q6H IV 2/27/17 20:00 07/16/16 01:50 (NS 1000 ml Inj) 1,000 ml @ 100 mls/hr Q10H IV 07/15/16 18:00 07/16/16 13:59 07/16/16 06:24 (Anna Marie Benites) Physical Exam General Appearance Remarks Laying in bed, moaning. Does speak to me, but goes immediately back to sleep. Complaining of being hot. (Anna Marie Benites) Pulmonary Resp Exam: Clear Bilaterally, Breath Sounds Equal, Diminished Breath Sounds ( Anna Marie Benites) Cardiology CV Exam: Regular, Normal Sinus Rhythm (Anna Marie Benites) Gastrointestinal/Abdomen GI Exam: Soft, Non-Tender (Anna Marie Benites) Integumentary Skin Exam: Clear, Warm (Anna Marie Benites) Extremeties Extremities Exam: No Edema (Anna Marie Benites) Neurologic Neuro Remarks Awake, but lethargic (Anna Marie Benites) Assessment/Plan Problem List: (1) Acute renal insufficiency Plan: Acute renal insufficiency most likely secondary to previous dehydration now with superimposed urosepsis. Unfortunately the patient may have developed acute tubular necrosis in which case his azotemia may continue to worsen despite IV fluids. Azotemia worsening despite IVF. Decrease fluids to 80mL/hr in light of hx of CHF Discussed again the possibility of dialysis with the patient and his . Will Discussed with Dr. Mercer & RN. Will likely proceed with dialytic intervention tomorrow. Warfarin has been changed to heparin by PCP. Continue to monitor I&O Defer antibiotic therapy to primary care physician. ID consult if agreeable. Medications should be adjusted for the patient's estimated GFR if clinically indicated. Avoid agents with significant potential for nephrotoxicity possible including NSAIDs for analgesia, iodine contrast agents. Gadolinium is contraindicated if the GFR is below 30 (2) CKD (chronic kidney disease) stage 4, GFR 15-29 ml/min Plan: Secondary to diabetic nephropathy with probable superimposed hypertensive nephrosclerosis. (3) HTN (hypertension) Plan: Stable (4) Hyponatremia Plan: Secondary to impaired free water clearance related to low GFR as well as probable non-osmotic simulation of antidiuretic hormone secretion. Pending labs this AM (5) Diabetes mellitus (6) Anemia of renal disease Plan: Pending Fe panel (Anna Marie Benites) Plan The exam, history, and the medical decision-making described in the above note were completed with the assistance of the PA-C. I reviewed and agree with the findings presented. (Pankaj Glover MD) Problem Qualifiers (1) Diabetes mellitus: Qualified Code: E11.8 - Type 2 diabetes mellitus with complication, with long- term current use of insulin Anna Marie Benites Jul 16, 2016 09:02 Pankaj Glover MD Jul 17, 2016 09:29
[2016-07-16] MEDS: PANTOPRAZOLE SOD 40 MG DELAYED RELEASE TAB PO SCH (09:35)
[2016-07-16] MEDS: ASPIRIN 81 MG CHEW TAB CHEW SCH (09:35)
[2016-07-16] MEDS: DILTIAZEM-CD 120 MG CAP ER PO SCH (09:35)
[2016-07-16 09:41] LABS: AUTOMATED NEUTROPHIL # 11.6 TH/MM3 (1.8-7.7); BASOPHIL # 0.1 TH/MM3 (0-0.2); BASOPHIL % 0.5 % (0.0-2.0); EOSINOPHIL % 0.1 % (0.0-4.0); HEMATOCRIT 24.6 % (39.0-51.0); HEMO FLAGS DIFF FINAL; LYMPH % 2.4 % (9.0-44.0); LYMPHOCYTE # 0.3 TH/MM3 (1.0-4.8); MEAN CELL VOLUME 97.7 FL (80.0-100.0); MEAN CORPUSCULAR HEMOGLOBIN 32.2 PG (27.0-34.0); MEAN CORPUSCULAR HGB CONC 32.9 % (32.0-36.0); MONO % 7.2 % (0.0-8.0); NEUT % 89.8 % (16.0-70.0); PLATELET COUNT 169 TH/MM3 (150-450); RED BLOOD COUNT 2.52 MIL/MM3 (4.50-5.90); RED CELL DISTRIBUTION WIDTH 14.9 % (11.6-17.2); WHITE BLOOD COUNT 12.9 TH/MM3 (4.0-11.0)
[2016-07-16 10:03] LABS: ANION GAP 9 MEQ/L (5-15); BICARBONATE 26.4 MEQ/L (21.0-32.0); BLOOD UREA NITROGEN 72 MG/DL (7-18); CHLORIDE 94 MEQ/L (98-107); FERRITIN 307 NG/ML (26-388); GLOMERULAR FILTRATION RATE 11 ML/MIN (>89); POTASSIUM 4.4 MEQ/L (3.5-5.1); SODIUM (NA) 129 MEQ/L (136-145); TRANSFERRIN IRON PROFILE 165 MG/DL (200-360)
[2016-07-16 10:24] LABS: CALCIUM-PROTEIN CORRECTED 8.2 MG/DL (8.5-10.1)
--- NOTE | 2016-07-16 11:15 | PD.ID.CON ---
History of Present Illness Service ID Consult Requested By Reason for Consult Evaluation and Mment of Severe Sepsis, Gram negative bacteremia. Primary Care Physician Billy Treviño Diagnoses: History of Present Illness Mr. Kruger is a 76 y/o diabetes type 2, peripheral arterial disease, left below- knee amputation, hypertension, paroxysmal atrial fibrillation as well as chronic kidney disease stage IV. Patient reports that intermittently his chronic kidney disease seems to have worsened but more or less he returns to his normal baseline. She does not have an AV fistula or dialysis catheter at the present time and has never undergone dialysis. Patient's reports that patient does have progressive shortness of breath over the past several weeks. Patient was seen by program aide group work and due to his failing bypass it was decided that he would have a elective CO2 angiography and potential cardiovascular intervention by Dr. Page and he underwent this procedure on July 04, 2016. In addition to the shortness of breath his reports that he's had significant weight gain as well as inability to lie flat at night. He usually has been sleeping in a chair. His previous 2-D echo showed ejection fraction of 55-60% with diastolic dysfunction, mild to moderate mitral regurgitation, pulmonary hypertension with right ventricle systolic pressure of 56 mm. Due to shortness of breath patient was diuresed and then underwent procedure early last week. Patient had nausea and vomiting at home which he initially attributed to the Anderson that he was prescribed. But when his abdominal swelling became progressively worse as well as in the groin area she was concerned. She also reports that he has had fever with chills and therefore it was decided to bring him to the hospital. Patient hasn't been unable to keep any food down prior to admission Sepsis workup was initiated and patient was started on empiric Zosyn IV. Patient's blood cultures are positive for gram-negative rods identification pending at the time of my dictation. His urine cultures are positive for Serratia marcescens which is pansensitive. At the time of my evaluation patient is on the regular floor not in any cardiopulmonary distress his vital signs appear stable. Patient opens his eyes on command but in general appears to be lethargic. He does have some urine in Garcia catheter placed approximately 100 cc dark yellow in color. No blood noted. Infectious disease is consulted for evaluation and management of sepsis, gram-negative tyron bacteremia. Review of Systems ROS Limitations: Other Constitutional: COMPLAINS OF: Fatigue, Fever, Chills, Change in appetite, DENIES: Diaphoretic episodes, Weight gain, Weight loss, Dizziness, Night Sweats Endocrine: DENIES: Heat/cold intolerance, Polydipsia, Polyuria, Polyphagia Eyes: DENIES: Blurred vision, Diplopia, Eye inflammation, Eye pain, Vision loss , Photosensitivity, Double Vision Ears, nose, mouth, throat: DENIES: Tinnitus, Hearing loss, Vertigo, Nasal discharge, Oral lesions, Throat pain, Hoarseness, Ear Pain, Running Nose, Epistaxis, Sinus Pain, Toothache, Odynophagia Respiratory: COMPLAINS OF: Shortness of breath, DENIES: Apneas, Cough, Snoring , Wheezing, Hemoptysis, Sputum production Cardiovascular: COMPLAINS OF: Dyspnea on Exertion, Lower Extremity Edema, Orthopnea, DENIES: Chest pain, Palpitations, Syncope, PND, Claudication Gastrointestinal: COMPLAINS OF: Nausea, Vomiting, DENIES: Abdominal pain, Black stools, Bloody stools, Constipation, Diarrhea, Difficulty Swallowing, Anorexia Genitourinary: DENIES: Sexual dysfunction, Urinary frequency, Urinary incontinence, Urgency, Hematuria, Dysuria, Nocturia, Penile Discharge, Testicular Pain, Testicular Swelling Musculoskeletal: DENIES: Joint pain, Muscle aches, Stiffness, Joint Swelling, Back pain, Neck pain Integumentary: DENIES: Abnormal pigmentation, Nail changes, Pruritus, Rash Hematologic/lymphatic: COMPLAINS OF: Bruising Immunologic/allergic: DENIES: Eczema, Urticaria Neurologic: DENIES: Abnormal gait, Headache, Localized weakness, Paresthesias, Seizures, Speech Problems, Tremor, Poor Balance Psychiatric: DENIES: Anxiety, Confusion, Mood changes, Depression, Hallucinations, Agitation, Suicidal Ideation, Homicidal Ideation, Delusions Lethargic. Past Family Social History Allergies: Coded Allergies: Invanz (Verified Allergy, Severe, SWELLING, 07/14/16) Sulfa (Verified Allergy, Severe, EDEMA,RASH, 07/14/16) Past Medical History h/o sepsis at [facility]. Pneumonia history at [facility]. Bacteremia in past at [facility]. Peripheral vascular disease Diabetes mellitus, type II HTN Hyperlipidemia Paroxysmal atrial fibrillation on chronic anticoagulation with Coumadin Right LE common fem DVT, nonocclusive in 02/2016 CAD with hx of [place] Anemia BPH Chronic diastolic CHF CKD, stage IV Hx of colon polyps Carotid artery stenosis GERD Osteoarthritis Primary open-angle glaucoma 2D echo (06/13/16) - EF 55-60% - Grade 1 diastolic dysfunction - LA mildly dilated - Mild to moderate mitral valve regurg - Aortic valve sclerosis - Moderate tricuspid regurg - Moderate pulmonary htn Past Surgical History Right total hip arthroplasty on 03/13/[address] Loyd Partial metatarsal resections, 2nd and 3rd metatarsals, right foot in 2014 Right popliteal-posterior tibial bypass in 2005 Atherectomy right posterior tibial anastomotic stenosis in 08/2013 Left BKA in 2007 Left popliteal to dorsalis pedis bypass graft, left popliteal to posterior tibial bypass using in situ greater saphenous vein in 2007 Hernia repair Right knee arthroplasty Left knee tendon repair Scrotal hernia repair Tonsillectomy Reported Medications Reported Meds & Active Scripts Active Reported Restoril (Temazepam) 15 Mg Cap 15 Mg PO HS PRN Torsemide 10 Mg Tab 10 Mg PO DAILY IN THE EVENING Torsemide 20 Mg Tab 20 Mg PO DAILY IN THE MORNING Pantoprazole (Pantoprazole Sodium) 40 Mg Tab 40 Mg PO DAILY Hydralazine (Hydralazine HCl) 100 Mg Tab 100 Mg PO TID Take with meals Cardizem CD 24 HR (Diltiazem CD 24 HR) 120 Mg Caper 120 Mg PO DAILY Aspirin 81 Mg Chew 81 Mg CHEW DAILY Coumadin (Warfarin) 5 Mg Tab 5 Mg PO HS Gabapentin 100 Mg Cap 200 Mg PO TID PRN Atorvastatin (Atorvastatin Calcium) 40 Mg Tab 40 Mg PO HS Novolog Inj (Insulin Aspart) 1,000 Unit/10 Ml Vial 12-15 Units SQ TIDAC Lantus Inj (Insulin Glargine) 1,000 Unit/10 Ml Vial 12 Units SQ HS Cozaar (Losartan Potassium) 25 Mg Tab 25 Mg PO HS Active Ordered Medications Current Medications Medications (Trade) Dose Ordered Sig/Flaquito Route Start Time Stop Time Status Last Admin (NS Flush) 2 ml UNSCH PRN IVF 07/14/16 12:30 (Aspirin Chew) 81 mg DAILY CHEW 07/15/16 09:00 07/16/16 09:35 (Lipitor) 40 mg HS PO 07/14/16 21:00 07/15/16 20:16 (Cardizem Cd) 120 mg DAILY PO 07/15/16 09:00 07/16/16 09:35 (Protonix) 40 mg DAILY PO 07/15/16 09:00 07/16/16 09:35 (Restoril) 15 mg HS PRN PO 07/14/16 16:30 07/15/16 00:40 (Zofran Inj) 4 mg Q4HR PRN IV PUSH 07/14/16 16:30 07/15/16 22:38 (Phazyme Chew) 125 mg Q8HR PO 07/14/16 22:00 07/16/16 06:23 (D50w (Vial) Inj) 25 ml UNSCH PRN IV PUSH 07/14/16 18:00 (Glucagon Inj) 1 mg UNSCH PRN OTHER 07/14/16 18:00 (Tylenol) 500 mg Q6H PRN PO 07/14/16 22:45 Acetaminophen 1000 mg 1,000 mg Q6H PRN PO 07/14/16 22:45 07/16/16 04:18 Piperacillin Sod/ Tazobactam Sod 50 ml @ 100 mls/hr Q6H IV 07/15/16 20:00 07/16/16 09:34 (NS 1000 ml Inj) 1,000 ml @ 100 mls/hr Q10H IV 07/15/16 18:00 07/16/16 13:59 07/16/16 06:24 Family History Mother at age 58 from colon cancer Father with hx of prostate cancer Social History Hx of heavy alcohol use, none for the last 6-7 years Hx of tobacco use Pt lives locally with his spouse 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 SKIN: No rashes. Cool and dry. HEAD: Atraumatic. Normocephalic. No temporal or scalp tenderness. EYES: Pupils equal round and reactive. Extraocular motions intact. No scleral icterus. No injection or drainage. ENT: Nose without bleeding, purulent drainage or septal hematoma. Throat without erythema, tonsillar hypertrophy or exudate. Uvula midline. Airway patent. NECK: Trachea midline.Supple, nontender, no meningeal signs. CARDIOVASCULAR: HS audible. No murmur appreciated. RESPIRATORY: Clear to auscultation. Breath sounds equal bilaterally. GASTROINTESTINAL: Abdomen soft, non-tender, nondistended. MUSCULOSKELETAL: Left BKA site with no e/o infection. RLE with chronic skin changes. Groin with ecchymosis notes. Angioplasty puncture sites with no e/o infection. NEUROLOGICAL: Lethargic, easily arousable. Confused at times. Non focal Psych: cooperative IV line sites with no e/o infection. Laboratory Laboratory Tests Test 07/16/16 09:12 White Blood Count 12.9 Red Blood Count 2.52 Hemoglobin 8.1 Hematocrit 24.6 Mean Corpuscular Volume 97.7 Mean Corpuscular Hemoglobin 32.2 Mean Corpuscular Hemoglobin 32.9 Concent Red Cell Distribution Width 14.9 Platelet Count 169 Mean Platelet Volume 8.4 Neutrophils (%) (Auto) 89.8 Lymphocytes (%) (Auto) 2.4 Monocytes (%) (Auto) 7.2 Eosinophils (%) (Auto) 0.1 Basophils (%) (Auto) 0.5 Neutrophils # (Auto) 11.6 Lymphocytes # (Auto) 0.3 Monocytes # (Auto) 0.9 Eosinophils # (Auto) 0.0 Basophils # (Auto) 0.1 CBC Comment DIFF FINAL Differential Comment Sodium Level 129 Potassium Level 4.4 Chloride Level 94 Carbon Dioxide Level 26.4 Anion Gap 9 Blood Urea Nitrogen 72 Creatinine 5.20 Estimat Glomerular Filtration 11 Rate Random Glucose 154 Calcium Level 7.4 Protein Corrected Calcium 8.2 Magnesium Level 3.0 Iron Level 14 Total Iron Binding Capacity 231 Percent Iron Saturation 6.1 Ferritin 307 Total Protein 5.6 Date/Time Procedure Status Source Growth 07/14/16 14:40 Urine Culture - Final Complete Urine Clean Catch Serratia Marcescens 07/14/16 14:35 Aerobic Blood Culture - Preliminary Resulted Blood Peripheral NO GROWTH IN 2 DAYS 07/14/16 14:35 Anaerobic Blood Culture - Preliminary Resulted Gram Negative Tyron Result Diagram: 07/16/16 0912 07/16/16 0912 Imaging Last Impressions Abdomen X-Ray 07/15/16 0600 Signed Impressions: Service Date/Time: Friday, July 15, 2016 05:28 - CONCLUSION: 1. Mild ileus. Alpesh Stokes MD Renal Ultrasound 07/14/16 0000 Signed Impressions: Service Date/Time: Thursday, July 14, 2016 17:36 - CONCLUSION: 1. Bilateral simple renal cysts. 2. Incidental note is evidence of cholelithiasis. 3. No hydronephrosis. Kolby Kay MD Chest X-Ray 07/14/16 0000 Signed Impressions: Service Date/Time: Thursday, July 14, 2016 14:47 - CONCLUSION: 1. Cardiomegaly with left basilar density likely atelectasis. Kolby Kay MD Assessment and Plan Assessment and Plan Severe sepsis with organ dysfunction (worsening Cr and encephalopathic) Gram-negative tyron bacteremia Serratia marcescens UTI Recent Angioplasty. Chronic kidney disease stage IV Acute metabolic encephalopathy likely secondary infection but also could be metabolic. Coronary artery disease Peripheral arterial disease status post left below-knee amputation History of benign prostatic hypertrophy but not on any medication. Recommendations Continue Zosyn IV for now. Await Verigene testing. WBC trended down and fevers defervesced Encephalopathy could be infection vs renal metabolic related. Repeat blood cultures x 2 If persistent bacteremia may need endovascular workup. Follow cultures Follow clinically. d.w Patients in room. d/w Oneyda Jorge MD Jul 16, 2016 11:15
[2016-07-16 13:06] LABS: INTERNATIONAL NORMALIZED RATIO 2.5 RATIO; PROTHROMBIN TIME - PATIENT 28.4 SEC (9.8-11.6)
--- NOTE | 2016-07-16 14:27 | HHI.PR ---
Subjective Remarks Pt was confused last night. Pt alert this afternoon and appears to be at previous baseline. Pt reports that he ate a good lunch. Objective Vitals Vital Signs Date Time Temp Pulse Resp B/P Pulse Ox O2 Delivery O2 Flow Rate FiO2 07/16/16 12:00 97.7 89 20 96/60 94 07/16/16 11:23 95 Nasal Cannula 2.00 07/16/16 11:00 94 Nasal Cannula 2.00 07/16/16 08:00 99.0 90 20 112/59 92 07/16/16 04:00 98.8 98 20 125/76 93 07/16/16 00:00 98.6 84 20 104/56 96 07/15/16 20:00 97.4 89 20 122/67 92 07/15/16 20:00 Nasal Cannula 2.00 07/15/16 16:00 98.0 86 20 129/62 92 07/15/16 07/15/16 07/16/16 15:00 23:00 07:00 Intake Total 1237 ml 635 ml 965 ml Output Total 250 ml 50 ml 200 ml Balance 987 ml 585 ml 765 ml Intake Oral 840 ml 360 ml 120 ml IV Total 397 ml 275 ml 845 ml Output Urine Total 250 ml 50 ml 200 ml # Bowel Movements 0 0 0 Result Diagram: 07/16/16 0912 07/16/16 0912 Imaging Last Impressions Abdomen X-Ray 07/15/16 0600 Signed Impressions: Service Date/Time: Friday, July 15, 2016 05:28 - CONCLUSION: 1. Mild ileus. Alpesh Stokes MD Renal Ultrasound 07/14/16 0000 Signed Impressions: Service Date/Time: Thursday, July 14, 2016 17:36 - CONCLUSION: 1. Bilateral simple renal cysts. 2. Incidental note is evidence of cholelithiasis. 3. No hydronephrosis. Kolby Kay MD Chest X-Ray 07/14/16 0000 Signed Impressions: Service Date/Time: Thursday, July 14, 2016 14:47 - CONCLUSION: 1. Cardiomegaly with left basilar density likely atelectasis. Kolby Kay MD Objective Remarks GENERAL: This is a well-nourished, well-developed patient, in no apparent distress. CARDIOVASCULAR: Regular rate and rhythm without murmurs, gallops, or rubs. RESPIRATORY: Clear to auscultation. Breath sounds equal bilaterally. No wheezes , rales, or rhonchi. GASTROINTESTINAL: Abdomen soft, non-tender, nondistended. Normal active bowel sounds MUSCULOSKELETAL: Extremities without clubbing, cyanosis, or edema. NEURO: Alert & Oriented x4 to person, place, time, situation. Moves all ext x4 A/P Problem List: (1) Bacteremia due to Gram-negative bacteria Status: Acute Plan: - comgmt with ID - zosyn, renal dosing - Blood Cx (07/14/16) --> gram negative regan - Urine Cx (07/14/16) --> serratia marcescens - Repeat Blood Cx (07/16/16) --> pending - Await Verigene testing - leukocytosis improving WBC 28.7 (07/14/16) & WBC 12.9 (07/16/16) - No fever since 12PM (07/15/16) - Case d/w Dr. Morfin (07/16/16) (2) Acute renal failure superimposed on stage 4 chronic kidney disease Status: Acute Plan: Pt had right fem/pop tibial co2 angiogram with balloon angioplasty on for stenosis he was admitted on 07/04 for decompensation of diatolic chf and diuresed. meds adjusted. After his procedure pt was using norco which made him nauseated and subsequent vomiting with poor po intake. - case d/w Dr. Glover (07/16/16) - IVF rate to NS at 100ml/hr - repeat BMP in AM - if BMP does NOT seem to be improving in the next 1-2 days, then will likely start HD and place permcath - stop coumadin - Vitamin K 5mg PO - will start Heparin SubQ, when INR is below 2.0 (3) Leukocytosis Status: Acute Plan: see above (4) Diabetes mellitus Status: Chronic Plan: ssi. hold scheduled insulin (5) Diastolic dysfunction Status: Chronic Plan: hold diuretics until dehydration corrected (6) Paroxysmal atrial fibrillation Status: Chronic Plan: stable (7) PVD (peripheral vascular disease) Status: Chronic (8) HTN (hypertension) Status: Chronic Plan: see above Problem Qualifiers (1) Diabetes mellitus: Qualified Code: E11.8 - Type 2 diabetes mellitus with complication, with long- term current use of insulin Jeremi Mercer DO Jul 16, 2016 14:27
[2016-07-16] MEDS ORDERED: PHYTONADIONE 5 MG TAB PO ONE ×2 (15:00→15:30)
[2016-07-16] MEDS: ATORVASTATIN 40 MG TAB PO SCH (21:51)
[2016-07-17] VITALS (9 sets, daily range): BP systolic 95–112; BP diastolic 42–58; PULSE 72–110; RESP 16–24; TEMP 96.1–98.2; O2SAT 92–95
[2016-07-17] MEDS: PIPERACIL-TAZO 2.25 GM PREMIX 50 ML IV SCH ×3 (02:28→14:00)
[2016-07-17] MEDS: SODIUM CHLOR 0.9% 1000 ML INJ 1,000 ML IV SCH (02:56)
[2016-07-17] MEDS: SIMETHICONE 125 MG CHEWABLE TAB PO SCH ×3 (05:21→22:06)
[2016-07-17] MEDS: INSULIN ASPART SUPPLEMENTAL SCALE SQ SCH ×4 (05:23→20:42)
[2016-07-17] MEDS: ACETAMINOPHEN 500 MG CPLT PO PRN (05:30)
[2016-07-17 07:30] LABS: INTERNATIONAL NORMALIZED RATIO 1.9 RATIO; PROTHROMBIN TIME - PATIENT 22.1 SEC (9.8-11.6)
[2016-07-17 07:31] LABS: HEMATOCRIT 26.1 % (39.0-51.0); MEAN CELL VOLUME 97.6 FL (80.0-100.0); MEAN CORPUSCULAR HEMOGLOBIN 32.2 PG (27.0-34.0); PLATELET COUNT 172 TH/MM3 (150-450); RED BLOOD COUNT 2.68 MIL/MM3 (4.50-5.90); RED CELL DISTRIBUTION WIDTH 14.8 % (11.6-17.2); REVIEW FLAG FINAL; WHITE BLOOD COUNT 10.2 TH/MM3 (4.0-11.0)
[2016-07-17 07:54] LABS: POTASSIUM 4.1 MEQ/L (3.5-5.1)
[2016-07-17] MEDS ORDERED: BUMETANIDE INJ 1 MG/4 ML VIAL IV PUSH ONE (09:30)
--- NOTE | 2016-07-17 09:34 | HHI.NPPN ---
Subjective History of Present Illness This patient is a 76-year-old male with known history of chronic kidney disease stage IV secondary to diabetic nephropathy. Patient also has a history of a cardiomyopathy as well as congestive heart failure and previous bladder outlet obstruction. Patient was recently hospitalized with cardiac decompensation which responded well to diuresis. There was also noted episodes of acute renal insufficiency last year. At the time of discharge last admission for congestive heart failure his creatinine was 2.3 to with an estimated GFR of 28. Patient subsequently underwent a CO2 angiogram of a right femoropopliteal on July 09, 2016. He underwent a successful percutaneous angioplasty for stenosis of a vein graft. Patient however presented this admission with complaints of nausea and vomiting 48 hours. Culture and urine culture growing gram-negative rods at time of consultation. Antibiotic therapy initiated today. Patient denies shortness of breath. Interval History Patient complaining of scrotal swelling and feeling tired. by bedside. Review of Systems General Constitutional: Fever, Chills, Fatigue Objective Data Data 07/16/16 07/17/16 19:00 07:00 Intake Total 600 ml 721 ml Output Total 200 ml 200 ml Balance 400 ml 521 ml Intake Oral 600 ml 320 ml IV Total 401 ml Output Urine Total 200 ml 200 ml # Voids 3 # Bowel Movements 0 0 Vital Signs Date Time Temp Pulse Resp B/P Pulse Ox O2 Delivery O2 Flow Rate FiO2 07/17/16 08:00 98.2 92 24 103/58 92 07/17/16 05:24 Nasal Cannula 2.00 07/17/16 04:00 97.2 72 22 95/42 92 07/17/16 00:00 97.9 80 22 95/52 92 07/16/16 20:35 85 07/16/16 20:00 98.4 89 22 105/59 92 07/16/16 20:00 Nasal Cannula 2.00 07/16/16 17:00 98.6 07/16/16 16:00 98.2 85 20 112/62 94 07/16/16 12:00 97.7 89 20 96/60 94 07/16/16 11:23 95 Nasal Cannula 2.00 07/16/16 11:00 94 Nasal Cannula 2.00 -: 07/17/16 0640 07/17/16 0640 Microbiology 07/16/16 Aerobic Blood Culture, Received Pending 07/16/16 Anaerobic Blood Culture, Received Pending 07/16/16 Aerobic Blood Culture, Received Pending 07/16/16 Anaerobic Blood Culture, Received Pending Physical Exam Pulmonary Resp Exam: Clear Bilaterally, Breath Sounds Equal, Diminished Breath Sounds Cardiology CV Exam: Regular, Normal Sinus Rhythm Gastrointestinal/Abdomen GI Exam: Soft, Non-Tender Integumentary Skin Exam: Clear, Warm Extremeties Extremities Exam: Moderate Edema (significant scrotal edema, 1+ pitting edema thighs and upper leg.) Neurologic Neuro Exam: Alert, Awake, Speech Clear Psychiatric Psych Exam: Appropriate Responses Assessment/Plan Problem List: (1) Acute renal insufficiency Plan: Acute renal insufficiency most likely secondary to previous dehydration now with superimposed urosepsis. Patient's urine output is only fair however the creatinine level is only slightly worse since yesterday and his acid base status appears to be stable with no hyperkalemia. Patient also appears to be more alert today and resting comfortably. Agree with reducing IV fluids. I will give 1 dose of IV bumetanide to try and reduce fluid retention and scrotal edema. I see no indication for acute dialysis today and will defer dialysis in the hope that renal recovery will start to occur but if not will consider initiating dialytic support in the next 24-48 hours. I discussed with the the above including initiating dialysis may slow renal recovery and she is in agreement with deferring for the present. I will initiate dialysis if I believe required. Defer antibiotic therapy to primary care physician. ID consult if agreeable. Medications should be adjusted for the patient's estimated GFR if clinically indicated. Avoid agents with significant potential for nephrotoxicity possible including NSAIDs for analgesia, iodine contrast agents. Gadolinium is contraindicated if the GFR is below 30 (2) CKD (chronic kidney disease) stage 4, GFR 15-29 ml/min Plan: Secondary to diabetic nephropathy with probable superimposed hypertensive nephrosclerosis. (3) HTN (hypertension) Plan: Stable (4) Hyponatremia Plan: Secondary to impaired free water clearance related to low GFR as well as probable non-osmotic simulation of antidiuretic hormone secretion. Pending labs this AM (5) Diabetes mellitus (6) Anemia of renal disease Plan: Pending Fe panel Problem Qualifiers (1) Diabetes mellitus: Qualified Code: E11.8 - Type 2 diabetes mellitus with complication, with long- term current use of insulin Pankaj Glover MD Jul 17, 2016 09:33
--- NOTE | 2016-07-17 12:05 | HHI.PR ---
Subjective Remarks Pt c/o LBP Pt c/o constipation Pt c/o scrotal edema. Pt denies SOB. Objective Vitals Vital Signs Date Time Temp Pulse Resp B/P Pulse Ox O2 Delivery O2 Flow Rate FiO2 07/17/16 08:00 98.2 92 24 103/58 92 07/17/16 07:00 20 07/17/16 05:24 Nasal Cannula 2.00 07/17/16 04:00 97.2 72 22 95/42 92 07/17/16 00:00 97.9 80 22 95/52 92 07/16/16 20:35 85 07/16/16 20:00 98.4 89 22 105/59 92 07/16/16 20:00 Nasal Cannula 2.00 07/16/16 17:00 98.6 07/16/16 16:00 98.2 85 20 112/62 94 07/16/16 07/16/16 07/17/16 15:00 23:00 07:00 Intake Total 600 ml 220 ml 501 ml Output Total 200 ml 200 ml Balance 400 ml 20 ml 501 ml Intake Oral 600 ml 220 ml 100 ml IV Total 401 ml Output Urine Total 200 ml 200 ml # Voids 3 # Bowel Movements 0 0 0 Result Diagram: 07/17/16 0640 07/17/16 0640 Imaging Last Impressions Abdomen X-Ray 07/15/16 0600 Signed Impressions: Service Date/Time: Friday, July 15, 2016 05:28 - CONCLUSION: 1. Mild ileus. Alpesh Stokes MD Renal Ultrasound 07/14/16 0000 Signed Impressions: Service Date/Time: Thursday, July 14, 2016 17:36 - CONCLUSION: 1. Bilateral simple renal cysts. 2. Incidental note is evidence of cholelithiasis. 3. No hydronephrosis. Kolby Kay MD Chest X-Ray 07/14/16 0000 Signed Impressions: Service Date/Time: Thursday, July 14, 2016 14:47 - CONCLUSION: 1. Cardiomegaly with left basilar density likely atelectasis. Kolby Kay MD Objective Remarks GENERAL: This is a well-nourished, well-developed patient, in no apparent distress. CARDIOVASCULAR: Regular rate and rhythm without murmurs, gallops, or rubs. RESPIRATORY: Clear to auscultation. Breath sounds equal bilaterally. No wheezes , rales, or rhonchi. GASTROINTESTINAL: Abdomen soft, non-tender, nondistended. Normal active bowel sounds MUSCULOSKELETAL: Extremities without clubbing, cyanosis, or edema. NEURO: Alert & Oriented x4 to person, place, time, situation. Moves all ext x4 A/P Problem List: (1) Bacteremia due to Gram-negative bacteria Status: Acute Plan: - comgmt with ID - zosyn, renal dosing - Blood Cx (07/14/16) --> serratia marcescens - Urine Cx (07/14/16) --> serratia marcescens - Repeat Blood Cx (07/16/16) --> NGTD - Await Verigene testing - leukocytosis resolved WBC 28.7 (07/14/16), WBC 12.9 (07/16/16), WBC 10.2 (& ) - No fever since 12PM (07/15/16) - Case d/w Dr. Morfin (07/17/16) (2) Acute renal failure superimposed on stage 4 chronic kidney disease Status: Acute Plan: Pt had right fem/pop tibial co2 angiogram with balloon angioplasty on for stenosis he was admitted on 07/04 for decompensation of diatolic chf and diuresed. meds adjusted. After his procedure pt was using norco which made him nauseated and subsequent vomiting with poor po intake. - case d/w Dr. Glover (07/16/16) - IVF rate to NS at 100ml/hr - repeat BMP in AM - if BMP does NOT seem to be improving in the next 1-2 days, then will likely start HD and place permcath - stop coumadin - Vitamin K 5mg PO (07/16/16) - INR 1.9 (07/17/16) - will likely start Heparin SubQ, 07/18/16 (3) Leukocytosis Status: Resolved Plan: see above (4) Constipation Status: Acute Plan: - KUB - start colace - enema (5) Diabetes mellitus Status: Chronic Plan: ssi. hold scheduled insulin (6) Diastolic dysfunction Status: Chronic Plan: hold diuretics until dehydration corrected (7) Paroxysmal atrial fibrillation Status: Chronic Plan: stable (8) PVD (peripheral vascular disease) Status: Chronic (9) HTN (hypertension) Status: Chronic Plan: see above Problem Qualifiers (1) Constipation: Qualified Code: K59.04 - Chronic idiopathic constipation (2) Diabetes mellitus: Qualified Code: E11.8 - Type 2 diabetes mellitus with complication, with long- term current use of insulin Jeremi Mercer DO Jul 17, 2016 12:05
[2016-07-17] MEDS: DOCUSATE SODIUM 100 MG CAP PO SCH ×2 (12:30→22:06)
[2016-07-17] MEDS ORDERED: BISACODYL 10 MG SUPP RECTAL PRN (12:30)
[2016-07-17] MEDS ORDERED: SOD PHOSPHATE/SOD BIPHOSPHATE (ADULT) ENEMA 133ML PR PRN (12:30)
--- NOTE | 2016-07-17 14:25 | RADRPT ---
EXAM DATE/TIME: 07/17/2016 13:10 [facility] COMPARISON: CHEST SINGLE AP, July 14, 2016, 14:47. INDICATIONS : Short of breath. MEDICAL HISTORY : Congestive heart failure. Diabetes mellitus type II. Hypertension. renal failure. SURGICAL HISTORY : Coronary artery stent. ENCOUNTER: Initial ACUITY: 3 days PAIN SCORE: 0/10 LOCATION: Bilateral chest FINDINGS: A single view of the chest demonstrates cardiomegaly. Minimal left basal atelectasis. Right lung is c lear. Pulmonary vascularity normal. Osseous structures are intact. CONCLUSION: Cardiomegaly and minimal left basilar atelectasis.. Kolby Kay MD on July 17, 2016 at 14:22 Board Certified Radiologist. This report was verified electronically.
[2016-07-17] MEDS: PANTOPRAZOLE SOD 40 MG DELAYED RELEASE TAB PO SCH (14:30)
[2016-07-17] MEDS: ASPIRIN 81 MG CHEW TAB CHEW SCH (14:30)
[2016-07-17] MEDS: DILTIAZEM-CD 120 MG CAP ER PO SCH (14:30)
--- NOTE | 2016-07-17 15:07 | RADRPT ---
EXAM DATE/TIME: 07/17/2016 13:13 [facility] COMPARISON: CHEST SINGLE AP, July 17, 2016, 13:10. INDICATIONS : Constipation. MEDICAL HISTORY : renal failure. SURGICAL HISTORY : angioplasty, carotid endartectomy, coronary artery stent, repair scrotal hernia ENCOUNTER: Initial ACUITY: 3 days PAIN SCORE: 7/10 LOCATION: Bilateral abdomen FINDINGS: There is a normal-appearing bowel gas pattern. No free air is seen. Visualized bony structures are gr ossly intact. There has been previous right hip arthroplasty. CONCLUSION: Benign-appearing KUB. Bimal Snyder MD on July 17, 2016 at 14:46 Board Certified Radiologist. This report was verified electronically.
[2016-07-17] MEDS ORDERED: LEVOFLOXACIN 500 MG PREMIX INJ 100 ML IV ONE ×2 (15:15)
[2016-07-17] MEDS: MORPHINE SULFATE 4 MG/ML INJ IV PUSH PRN ×2 (15:35→22:07)
--- NOTE | 2016-07-17 19:43 | HHI.IDPN ---
Subjective Subjective Remarks Mr. Kruger is a 76 y/o diabetes type 2, peripheral arterial disease, left below- knee amputation, hypertension, paroxysmal atrial fibrillation as well as chronic kidney disease stage IV. ID following for Serratia marcescens sensitive bacteremia as well as urinary tract infection. Overnight events reviewed. No fevers No rash No diarrhea WBC trending downwards Appears to be more alert today. Complaints of abdominal pain and has not had a bowel movement. Being treated with stool softeners at the present time. Antibiotics Zosyn IV Lines Line sites with no evidence of infection. Past Medical History Reviewed. Allergies: Coded Allergies: Invanz (Verified Allergy, Severe, SWELLING, 07/14/16) Sulfa (Verified Allergy, Severe, EDEMA,RASH, 07/14/16) Objective . Vital Signs Date Time Temp Pulse Resp B/P Pulse Ox O2 Delivery O2 Flow Rate FiO2 07/17/16 17:38 93 Nasal Cannula 2.00 07/17/16 16:42 20 07/17/16 16:00 94 Nasal Cannula 2.00 07/17/16 16:00 97.3 88 18 99/53 93 07/17/16 12:00 96.1 98 20 106/56 92 07/17/16 08:01 95 Nasal Cannula 2.00 07/17/16 08:00 98.2 92 24 103/58 92 07/17/16 07:00 20 07/17/16 05:24 Nasal Cannula 2.00 07/17/16 04:00 97.2 72 22 95/42 92 07/17/16 00:00 97.9 80 22 95/52 92 07/16/16 20:35 85 07/16/16 20:00 98.4 89 22 105/59 92 07/16/16 20:00 Nasal Cannula 2.00 07/16/16 07/16/16 07/17/16 15:00 23:00 07:00 Intake Total 600 ml 220 ml 501 ml Output Total 200 ml 200 ml Balance 400 ml 20 ml 501 ml Intake Oral 600 ml 220 ml 100 ml IV Total 401 ml Output Urine Total 200 ml 200 ml # Voids 3 # Bowel Movements 0 0 0 . Laboratory Tests Test 07/16/16 07/17/16 09:12 06:40 White Blood Count 12.9 TH/MM3 10.2 TH/MM3 Red Blood Count 2.52 MIL/MM3 2.68 MIL/MM3 Hemoglobin 8.1 GM/DL 8.6 GM/DL Hematocrit 24.6 % 26.1 % Mean Corpuscular Volume 97.7 FL 97.6 FL Mean Corpuscular Hemoglobin 32.2 PG 32.2 PG Mean Corpuscular Hemoglobin 32.9 % 33.0 % Concent Red Cell Distribution Width 14.9 % 14.8 % Platelet Count 169 TH/MM3 172 TH/MM3 Mean Platelet Volume 8.4 FL 8.7 FL Neutrophils (%) (Auto) 89.8 % Lymphocytes (%) (Auto) 2.4 % Monocytes (%) (Auto) 7.2 % Eosinophils (%) (Auto) 0.1 % Basophils (%) (Auto) 0.5 % Neutrophils # (Auto) 11.6 TH/MM3 Lymphocytes # (Auto) 0.3 TH/MM3 Monocytes # (Auto) 0.9 TH/MM3 Eosinophils # (Auto) 0.0 TH/MM3 Basophils # (Auto) 0.1 TH/MM3 CBC Comment DIFF FINAL Differential Comment Laboratory Tests Test 07/16/16 07/16/16 07/17/16 09:12 09:16 06:40 Sodium Level 129 MEQ/L 130 MEQ/L Potassium Level 4.4 MEQ/L 4.1 MEQ/L Chloride Level 94 MEQ/L 95 MEQ/L Carbon Dioxide Level 26.4 MEQ/L 23.0 MEQ/L Anion Gap 9 MEQ/L 12 MEQ/L Blood Urea Nitrogen 72 MG/DL 75 MG/DL Creatinine 5.20 MG/DL 5.27 MG/DL Estimat Glomerular Filtration 11 ML/MIN 11 ML/MIN Rate Random Glucose 154 MG/DL 128 MG/DL Calcium Level 7.4 MG/DL 7.4 MG/DL Protein Corrected Calcium 8.2 MG/DL Magnesium Level 3.0 MG/DL Iron Level 14 MCG/DL Total Iron Binding Capacity 231 MCG/DL Percent Iron Saturation 6.1 % Ferritin 307 NG/ML Total Protein 5.6 GM/DL Parathyroid Hormone (Intact) 142.5 PG/ML 25-Hydroxy Vitamin D Total 26.1 ng/ML Phosphorus Level 4.6 MG/DL Albumin 2.3 GM/DL Microbiology Date/Time Procedure Status Source Growth 07/16/16 12:05 Aerobic Blood Culture - Preliminary Resulted Blood Peripheral NO GROWTH IN 1 DAY 07/16/16 12:05 Anaerobic Blood Culture - Preliminary Resulted Blood Peripheral NO GROWTH IN 1 DAY 07/16/16 12:15 Aerobic Blood Culture - Preliminary Resulted Blood Peripheral NO GROWTH IN 1 DAY 07/16/16 12:15 Anaerobic Blood Culture - Preliminary Resulted Blood Peripheral NO GROWTH IN 1 DAY Imaging Last Impressions Chest X-Ray 07/17/16 0000 Signed Impressions: Service Date/Time: Sunday, July 17, 2016 13:10 - CONCLUSION: Cardiomegaly and minimal left basilar atelectasis.. Kolby Kay MD Abdomen X-Ray 07/17/16 0000 Signed Impressions: Service Date/Time: Sunday, July 17, 2016 13:13 - CONCLUSION: Benign-appearing KUB. Bimal Snyder MD Renal Ultrasound 07/14/16 0000 Signed Impressions: Service Date/Time: Thursday, July 14, 2016 17:36 - CONCLUSION: 1. Bilateral simple renal cysts. 2. Incidental note is evidence of cholelithiasis. 3. No hydronephrosis. Kolby Kay MD Physical Exam GENERAL: This is a well-nourished, well-developed patient, in no apparent distress. SKIN: No rashes. Cool and dry. HEAD: Atraumatic. Normocephalic. No temporal or scalp tenderness. EYES: Pupils equal round and reactive. Extraocular motions intact. No scleral icterus. No injection or drainage. ENT: Nose without bleeding, purulent drainage or septal hematoma. Throat without erythema, tonsillar hypertrophy or exudate. Uvula midline. Airway patent. NECK: Trachea midline.Supple, nontender, no meningeal signs. CARDIOVASCULAR: HS audible. No murmur appreciated. RESPIRATORY: Clear to auscultation. Breath sounds equal bilaterally. GASTROINTESTINAL: Abdomen soft, ferrous tenderness. MUSCULOSKELETAL: Left BKA site with no e/o infection. RLE with chronic skin changes. Groin with ecchymosis notes. Angioplasty puncture sites with no e/o infection. NEUROLOGICAL: Alert. Nonfocal. Psych: cooperative IV line sites with no e/o infection. Assessment & Plan Remarks Severe sepsis with organ dysfunction (worsening Cr and encephalopathic) Serratia marcescens bacteremia Serratia marcescens UTI Recent Angioplasty. Chronic kidney disease stage IV Acute metabolic encephalopathy likely secondary infection but also could be metabolic. Coronary artery disease Peripheral arterial disease status post left below-knee amputation History of benign prostatic hypertrophy but not on any medication. Recommendations Cultures reviewed. Discontinue Zosyn IV (intermediate susceptible.) Levaquin IV for today Levaquin oral adjust based on creatinine clearance for timing and dosage. Discussed with pharmacist. Encephalopathy could be infection vs renal metabolic related. Follow repeat cultures If persistent bacteremia may need endovascular workup. Follow cultures Follow clinically. d.w Patients in room. d/w Oneyda Jorge MD Jul 17, 2016 19:43
[2016-07-17] MEDS: ATORVASTATIN 40 MG TAB PO SCH (22:06)
[2016-07-18] VITALS (7 sets, daily range): BP systolic 101–131; BP diastolic 54–75; PULSE 83–110; RESP 18–19; TEMP 97–99.1; O2SAT 92–96
[2016-07-18] MEDS: SIMETHICONE 125 MG CHEWABLE TAB PO SCH ×3 (06:00→20:38)
[2016-07-18] MEDS: INSULIN ASPART SUPPLEMENTAL SCALE SQ SCH ×4 (06:09→20:42)
[2016-07-18 08:01] LABS: INTERNATIONAL NORMALIZED RATIO 1.6 RATIO; PROTHROMBIN TIME - PATIENT 18.2 SEC (9.8-11.6)
[2016-07-18 08:26] LABS: BICARBONATE 23.6 MEQ/L (21.0-32.0); POTASSIUM 4.3 MEQ/L (3.5-5.1)
[2016-07-18] MEDS: DILTIAZEM-CD 120 MG CAP ER PO SCH (08:57)
[2016-07-18] MEDS: SODIUM CHLORIDE 0.9% FLUSH 5 ML FLUSH IVF PRN (08:58)
[2016-07-18] MEDS: DOCUSATE SODIUM 100 MG CAP PO SCH ×2 (08:58→20:38)
[2016-07-18] MEDS: ASPIRIN 81 MG CHEW TAB CHEW SCH (08:58)
[2016-07-18] MEDS: PANTOPRAZOLE SOD 40 MG DELAYED RELEASE TAB PO SCH (08:58)
[2016-07-18] MEDS: MORPHINE SULFATE 4 MG/ML INJ IV PUSH PRN ×4 (09:01→20:38)
--- NOTE | 2016-07-18 09:52 | HHI.NPPN ---
Subjective History of Present Illness This patient is a 76-year-old male with known history of chronic kidney disease stage IV secondary to diabetic nephropathy. Patient also has a history of a cardiomyopathy as well as congestive heart failure and previous bladder outlet obstruction. Patient was recently hospitalized with cardiac decompensation which responded well to diuresis. There was also noted episodes of acute renal insufficiency last year. At the time of discharge last admission for congestive heart failure his creatinine was 2.3 to with an estimated GFR of 28. Patient subsequently underwent a CO2 angiogram of a right femoropopliteal on July 09, 2016. He underwent a successful percutaneous angioplasty for stenosis of a vein graft. Patient however presented this admission with complaints of nausea and vomiting 48 hours. Culture and urine culture growing gram-negative rods at time of consultation. Antibiotic therapy initiated today. Patient denies shortness of breath. Interval History Pt feeling better today. Swelling in genitals improved. Constipated (Anna Marie Benites) Review of Systems General Constitutional: Chills, Fatigue (Anna Marie Benites) Gastrointestinal Gastrointestinal: Constipation (Anna Marie Benites) Objective Data Data 07/17/16 07/18/16 19:00 07:00 Intake Total 240 ml 600 ml Output Total 275 ml 1000 ml Balance -35 ml -400 ml Intake Oral 240 ml 600 ml Output Urine Total 275 ml 1000 ml # Bowel Movements 0 Vital Signs Date Time Temp Pulse Resp B/P Pulse Ox O2 Delivery O2 Flow Rate FiO2 07/18/16 08:00 98.0 110 19 118/60 92 07/18/16 04:51 98.6 103 18 111/58 94 07/18/16 00:22 99.1 103 18 101/54 92 07/17/16 20:30 Nasal Cannula 2.00 07/17/16 20:14 97.9 110 16 112/55 93 07/17/16 20:00 98 07/17/16 17:38 93 Nasal Cannula 2.00 07/17/16 16:42 20 07/17/16 16:00 94 Nasal Cannula 2.00 07/17/16 16:00 97.3 88 18 99/53 93 07/17/16 12:00 96.1 98 20 106/56 92 (Anna Marie Benites) -: 07/17/16 0640 07/18/16 0725 Imaging Last Impressions Chest X-Ray 07/17/16 0000 Signed Impressions: Service Date/Time: Sunday, July 17, 2016 13:10 - CONCLUSION: Cardiomegaly and minimal left basilar atelectasis.. Kolby Kay MD Abdomen X-Ray 07/17/16 0000 Signed Impressions: Service Date/Time: Sunday, July 17, 2016 13:13 - CONCLUSION: Benign-appearing KUB. Bimal Snyder MD Renal Ultrasound 07/14/16 0000 Signed Impressions: Service Date/Time: Thursday, July 14, 2016 17:36 - CONCLUSION: 1. Bilateral simple renal cysts. 2. Incidental note is evidence of cholelithiasis. 3. No hydronephrosis. Kolby Kay MD Medication Review Current Medications Medications (Trade) Dose Ordered Sig/Flaquito Route Start Time Stop Time Status Last Admin (NS Flush) 2 ml UNSCH PRN IVF 07/14/16 12:30 07/18/16 08:58 (Aspirin Chew) 81 mg DAILY CHEW 07/15/16 09:00 07/18/16 08:58 (Lipitor) 40 mg HS PO 07/14/16 21:00 07/17/16 22:06 (Cardizem Cd) 120 mg DAILY PO 07/15/16 09:00 07/18/16 08:57 (Protonix) 40 mg DAILY PO 07/15/16 09:00 07/18/16 08:58 (Restoril) 15 mg HS PRN PO 07/14/16 16:30 07/15/16 00:40 (Zofran Inj) 4 mg Q4HR PRN IV PUSH 07/14/16 16:30 07/15/16 22:38 (Phazyme Chew) 125 mg Q8HR PO 07/14/16 22:00 07/18/16 06:00 (D50w (Vial) Inj) 25 ml UNSCH PRN IV PUSH 07/14/16 18:00 (Glucagon Inj) 1 mg UNSCH PRN OTHER 07/14/16 18:00 (Tylenol) 500 mg Q6H PRN PO 07/14/16 22:45 (Tylenol) 1,000 mg Q6H PRN PO 07/14/16 22:45 07/17/16 05:30 (Colace) 100 mg BID PO 07/17/16 12:30 07/18/16 08:58 (Fleets Enema (Adult)) 133 ml UNSCH PRN W[place] 07/17/16 12:30 (Dulcolax Supp) 10 mg BID PRN RECTAL 07/17/16 12:30 07/17/16 15:35 (Morphine Inj) 2 mg Q3H PRN IV PUSH 07/17/16 12:30 07/18/16 09:01 (Levaquin) 250 mg Q48H PO 07/19/16 16:00 (Anna Marie Benites) Physical Exam General Appearance: No Acute Distress (Anna Marie Benites) Pulmonary Resp Exam: Clear Bilaterally, Breath Sounds Equal, Diminished Breath Sounds ( Anna Marie Benites) Cardiology CV Exam: Normal Sinus Rhythm, Irregular (Anna Marie Benites) Gastrointestinal/Abdomen GI Exam: Soft, Non-Tender (Anna Marie Benites) Integumentary Skin Exam: Clear, Warm (Anna Marie Benites) Extremeties Extremities Exam: Moderate Edema (1+ edema in thighs. Improving scrotal edema) (Anna Marie Benites) Neurologic Neuro Exam: Alert, Awake, Speech Clear (Anna Marie Benites) Psychiatric Psych Exam: Appropriate Responses (Anna Marie Benites) Assessment/Plan Problem List: (1) Acute renal insufficiency Plan: Acute renal insufficiency most likely secondary to previous dehydration now with superimposed urosepsis. UOP improved as well as azotemia. Repeated BCx neg x24h. Dose with IV Bumex again today and monitor. I see no indication for acute dialysis today and will defer dialysis in the hope that renal recovery will start to occur but if not will consider initiating dialytic support in the next 24-48 hours. I discussed with the the above including initiating dialysis may slow renal recovery and she is in agreement with deferring for the present. Medications should be adjusted for the patient's estimated GFR if clinically indicated. Avoid agents with significant potential for nephrotoxicity possible including NSAIDs for analgesia, iodine contrast agents. Gadolinium is contraindicated if the GFR is below 30 (2) CKD (chronic kidney disease) stage 4, GFR 15-29 ml/min Plan: Secondary to diabetic nephropathy with probable superimposed hypertensive nephrosclerosis. (3) HTN (hypertension) Plan: Stable (4) Hyponatremia Plan: Secondary to impaired free water clearance related to low GFR as well as probable non-osmotic simulation of antidiuretic hormone secretion. Improving (5) Diabetes mellitus (6) Anemia of renal disease Plan: Low iron sats. Would defer Venofer infusion at the present given infection. (Anna Marie Benites) Plan The exam, history, and the medical decision-making described in the above note were completed with the assistance of the PAAl. I reviewed and agree with the findings presented. (Pankaj Glover MD) Problem Qualifiers (1) Diabetes mellitus: Qualified Code: E11.8 - Type 2 diabetes mellitus with complication, with long- term current use of insulin Anna Marie Benites Jul 18, 2016 09:51 Pankaj Glover MD Jul 19, 2016 11:42
[2016-07-18] MEDS ORDERED: BUMETANIDE INJ 1 MG/4 ML VIAL IV PUSH ONE (10:00)
--- NOTE | 2016-07-18 15:55 | HHI.PR ---
Subjective Remarks Pt reports two large BMs today. Less back pain with prn morphine. Pt c/o continued scrotal edema. Objective Vitals Vital Signs Date Time Temp Pulse Resp B/P Pulse Ox O2 Delivery O2 Flow Rate FiO2 07/18/16 11:45 98.0 94 19 108/55 92 07/18/16 09:54 104 07/18/16 09:34 Room Air 07/18/16 08:00 98.0 110 19 118/60 92 07/18/16 04:51 98.6 103 18 111/58 94 07/18/16 00:22 99.1 103 18 101/54 92 07/17/16 20:30 Nasal Cannula 2.00 07/17/16 20:14 97.9 110 16 112/55 93 07/17/16 20:00 98 07/17/16 17:38 93 Nasal Cannula 2.00 07/17/16 16:42 20 07/17/16 16:00 94 Nasal Cannula 2.00 07/17/16 16:00 97.3 88 18 99/53 93 07/17/16 07/17/16 07/18/16 15:00 23:00 07:00 Intake Total 240 ml 360 ml 240 ml Output Total 275 ml 400 ml 600 ml Balance -35 ml -40 ml -360 ml Intake Oral 240 ml 360 ml 240 ml Output Urine Total 275 ml 400 ml 600 ml # Bowel Movements 0 0 Result Diagram: 07/17/16 0640 07/18/16 0725 Imaging Last Impressions Abdomen X-Ray 07/15/16 0600 Signed Impressions: Service Date/Time: Friday, July 15, 2016 05:28 - CONCLUSION: 1. Mild ileus. Alpesh Stokes MD Renal Ultrasound 07/14/16 0000 Signed Impressions: Service Date/Time: Thursday, July 14, 2016 17:36 - CONCLUSION: 1. Bilateral simple renal cysts. 2. Incidental note is evidence of cholelithiasis. 3. No hydronephrosis. Kolby Kay MD Chest X-Ray 07/14/16 0000 Signed Impressions: Service Date/Time: Thursday, July 14, 2016 14:47 - CONCLUSION: 1. Cardiomegaly with left basilar density likely atelectasis. Kolby Kay MD Objective Remarks GENERAL: This is a well-nourished, well-developed patient, in no apparent distress. CARDIOVASCULAR: Regular rate and rhythm without murmurs, gallops, or rubs. RESPIRATORY: Clear to auscultation. Breath sounds equal bilaterally. No wheezes , rales, or rhonchi. GASTROINTESTINAL: Abdomen soft, non-tender, nondistended. Normal active bowel sounds MUSCULOSKELETAL: Extremities without clubbing, cyanosis, or edema. NEURO: Alert & Oriented x4 to person, place, time, situation. Moves all ext x4 : marked scrotal edema A/P Problem List: (1) Bacteremia due to Gram-negative bacteria Status: Acute Plan: - comgmt with ID - zosyn, renal dosing, intermediate sensitivity ( 07/15 - 07/17/16) - levaquin q48hrs, (07/17/16 - present), next dose 07/19 - Blood Cx (07/14/16) --> serratia marcescens - Urine Cx (07/14/16) --> serratia marcescens - Repeat Blood Cx (07/16/16) --> gram negative rods - Repeat Blood Cx (07/18/16) --> pending - leukocytosis resolved WBC 28.7 (07/14/16), WBC 12.9 (07/16/16), WBC 10.2 (& ) - No fever since 12PM (07/15/16) - Case d/w Dr. Morfin (07/18/16) - anticipate d/c in 3-4 days (2) Acute renal failure superimposed on stage 4 chronic kidney disease Status: Acute Plan: Pt had right fem/pop tibial co2 angiogram with balloon angioplasty on for stenosis he was admitted on 07/04 for decompensation of diatolic chf and diuresed. meds adjusted. After his procedure pt was using norco which made him nauseated and subsequent vomiting with poor po intake. - case d/w Dr. Glover (07/16/16) - IVF rate to NS at 100ml/hr - repeat BMP in AM - if BMP does NOT seem to be improving in the next 1-2 days, then will likely start HD and place permcath - stop coumadin - Vitamin K 5mg PO (07/16/16) - INR 1.9 (07/17/16) - will likely start Heparin SubQ, 3/2/17 (3) Leukocytosis Status: Resolved Plan: see above (4) Constipation Status: Acute Plan: - KUB - start colace - enema (5) Diabetes mellitus Status: Chronic Plan: ssi. hold scheduled insulin (6) Diastolic dysfunction Status: Chronic Plan: hold diuretics until dehydration corrected (7) Paroxysmal atrial fibrillation Status: Chronic Plan: stable (8) PVD (peripheral vascular disease) Status: Chronic (9) HTN (hypertension) Status: Chronic Plan: see above Problem Qualifiers (1) Constipation: Qualified Code: K59.04 - Chronic idiopathic constipation (2) Diabetes mellitus: Qualified Code: E11.8 - Type 2 diabetes mellitus with complication, with long- term current use of insulin Jeremi Mercer DO Jul 18, 2016 15:55
[2016-07-18] MEDS: HEPARIN SODIUM - SQ 10,000 UNITS/ML VIAL SQ SCH ×2 (17:15→20:37)
[2016-07-18] MEDS: ATORVASTATIN 40 MG TAB PO SCH (20:38)
[2016-07-19] VITALS (8 sets, daily range): BP systolic 95–136; BP diastolic 52–68; PULSE 79–101; RESP 18–20; TEMP 97.2–98.5; O2SAT 91–97
[2016-07-19] MEDS: HEPARIN SODIUM - SQ 10,000 UNITS/ML VIAL SQ SCH ×3 (06:00→21:57)
[2016-07-19] MEDS: SIMETHICONE 125 MG CHEWABLE TAB PO SCH ×3 (06:00→21:56)
[2016-07-19] MEDS: INSULIN ASPART SUPPLEMENTAL SCALE SQ SCH ×4 (06:17→22:03)
[2016-07-19 08:18] LABS: HEMATOCRIT 26.7 % (39.0-51.0); MEAN CELL VOLUME 96.4 FL (80.0-100.0); MEAN CORPUSCULAR HEMOGLOBIN 31.5 PG (27.0-34.0); MEAN CORPUSCULAR HGB CONC 32.7 % (32.0-36.0); PLATELET COUNT 209 TH/MM3 (150-450); RED BLOOD COUNT 2.77 MIL/MM3 (4.50-5.90); RED CELL DISTRIBUTION WIDTH 15.4 % (11.6-17.2); REVIEW FLAG FINAL; WHITE BLOOD COUNT 9.7 TH/MM3 (4.0-11.0)
[2016-07-19] MEDS: DOCUSATE SODIUM 100 MG CAP PO SCH ×2 (08:38→21:56)
[2016-07-19] MEDS: PANTOPRAZOLE SOD 40 MG DELAYED RELEASE TAB PO SCH (08:38)
[2016-07-19] MEDS: SODIUM CHLORIDE 0.9% FLUSH 5 ML FLUSH IVF PRN (08:39)
[2016-07-19] MEDS: DILTIAZEM-CD 120 MG CAP ER PO SCH (08:39)
[2016-07-19] MEDS: ASPIRIN 81 MG CHEW TAB CHEW SCH (08:39)
[2016-07-19] MEDS: MORPHINE SULFATE 4 MG/ML INJ IV PUSH PRN ×3 (08:45→22:10)
[2016-07-19 08:46] LABS: BICARBONATE 24.9 MEQ/L (21.0-32.0); POTASSIUM 4.5 MEQ/L (3.5-5.1)
--- NOTE | 2016-07-19 11:42 | HHI.NPPN ---
Subjective History of Present Illness This patient is a 76-year-old male with known history of chronic kidney disease stage IV secondary to diabetic nephropathy. Patient also has a history of a cardiomyopathy as well as congestive heart failure and previous bladder outlet obstruction. Patient was recently hospitalized with cardiac decompensation which responded well to diuresis. There was also noted episodes of acute renal insufficiency last year. At the time of discharge last admission for congestive heart failure his creatinine was 2.3 to with an estimated GFR of 28. Patient subsequently underwent a CO2 angiogram of a right femoropopliteal on July 09, 2016. He underwent a successful percutaneous angioplasty for stenosis of a vein graft. Patient however presented this admission with complaints of nausea and vomiting 48 hours. Culture and urine culture growing gram-negative rods at time of consultation. Antibiotic therapy initiated today. Patient denies shortness of breath. Interval History Patient complaining of feeling very fatigued. and son by bedside. No history of fever or chills. Review of Systems General Constitutional: Chills, Fatigue Gastrointestinal Gastrointestinal: Constipation Objective Data Data 07/18/16 07/19/16 19:00 07:00 Intake Total 650 ml 240 ml Output Total 800 ml 850 ml Balance -150 ml -610 ml Intake Oral 650 ml 240 ml Output Urine Total 800 ml 850 ml # Bowel Movements 1 0 Vital Signs Date Time Temp Pulse Resp B/P Pulse Ox O2 Delivery O2 Flow Rate FiO2 07/19/16 10:03 Nasal Cannula 2.00 07/19/16 08:00 98.1 101 20 127/64 93 07/19/16 08:00 94 07/19/16 07:40 93 07/19/16 04:43 98.5 92 18 125/67 93 07/19/16 00:00 98.1 89 20 95/52 91 07/18/16 20:50 Nasal Cannula 2.00 07/18/16 20:00 97.0 89 18 131/75 96 07/18/16 16:00 97.3 83 18 127/70 92 07/18/16 11:45 98.0 94 19 108/55 92 -: 07/19/16 0758 07/19/16 0758 Microbiology 07/18/16 Aerobic Blood Culture - Preliminary, Resulted NO GROWTH IN 1 DAY 07/18/16 Anaerobic Blood Culture - Preliminary, Resulted NO GROWTH IN 1 DAY 07/18/16 Aerobic Blood Culture - Preliminary, Resulted NO GROWTH IN 1 DAY 07/18/16 Anaerobic Blood Culture - Preliminary, Resulted NO GROWTH IN 1 DAY Physical Exam General Appearance: No Acute Distress Pulmonary Resp Exam: Clear Bilaterally, Breath Sounds Equal, Diminished Breath Sounds Cardiology CV Exam: Normal Sinus Rhythm, Irregular Gastrointestinal/Abdomen GI Exam: Soft, Non-Tender Integumentary Skin Exam: Clear, Warm Extremeties Extremities Exam: Trace Edema (still with scrotal swelling although improved.) Neurologic Neuro Exam: Alert, Awake, Speech Clear Psychiatric Psych Exam: Appropriate Responses Assessment/Plan Discussed Condition With: Patient, Spouse, Son Problem List: (1) Acute renal insufficiency Plan: Patient's creatinine is significantly improved today with good urine output. Hopefully this trend will continue. Another dose of bumetanide 1 to try and improve edema and scrotal edema. I see no indication for acute dialysis today and will defer dialysis in the hope that renal recovery will continue. Noted blood cultures up to and 16 July positive however blood cultures June 20 negative 24 hours. White count also falling. Defer antibiotics to infectious disease. Recommend adjusting antibiotics if indicated as renal function improves. Medications should be adjusted for the patient's estimated GFR if clinically indicated. Avoid agents with significant potential for nephrotoxicity possible including NSAIDs for analgesia, iodine contrast agents. Gadolinium is contraindicated if the GFR is below 30 (2) CKD (chronic kidney disease) stage 4, GFR 15-29 ml/min Plan: Secondary to diabetic nephropathy with probable superimposed hypertensive nephrosclerosis. (3) HTN (hypertension) Plan: Stable (4) Hyponatremia Plan: Secondary to impaired free water clearance related to low GFR as well as probable non-osmotic simulation of antidiuretic hormone secretion. Improving (5) Diabetes mellitus (6) Anemia of renal disease Plan: Low iron sats. Would defer Venofer infusion at the present given infection. Problem Qualifiers (1) Diabetes mellitus: Qualified Code: E11.8 - Type 2 diabetes mellitus with complication, with long- term current use of insulin Pankaj Glover MD Jul 19, 2016 11:42
[2016-07-19] MEDS ORDERED: BUMETANIDE INJ 1 MG/4 ML VIAL IV PUSH ONE (12:00)
--- NOTE | 2016-07-19 13:57 | HHI.PR ---
Subjective Remarks No new complaints. Objective Vitals Vital Signs Date Time Temp Pulse Resp B/P Pulse Ox O2 Delivery O2 Flow Rate FiO2 07/19/16 12:00 97.6 86 18 128/58 96 07/19/16 10:03 Nasal Cannula 2.00 07/19/16 08:00 98.1 101 20 127/64 93 07/19/16 08:00 94 07/19/16 07:40 93 07/19/16 04:43 98.5 92 18 125/67 93 07/19/16 00:00 98.1 89 20 95/52 91 07/18/16 20:50 Nasal Cannula 2.00 07/18/16 20:00 97.0 89 18 131/75 96 07/18/16 16:00 97.3 83 18 127/70 92 07/18/16 07/18/16 07/19/16 15:00 23:00 07:00 Intake Total 650 ml 240 ml 0 ml Output Total 800 ml 450 ml 400 ml Balance -150 ml -210 ml -400 ml Intake Oral 650 ml 240 ml 0 ml Output Urine Total 800 ml 450 ml 400 ml # Bowel Movements 1 0 0 Result Diagram: 07/19/16 0758 07/19/16 0758 Imaging Last Impressions Abdomen X-Ray 07/15/16 0600 Signed Impressions: Service Date/Time: Friday, July 15, 2016 05:28 - CONCLUSION: 1. Mild ileus. Alpesh Stokes MD Renal Ultrasound 07/14/16 0000 Signed Impressions: Service Date/Time: Thursday, July 14, 2016 17:36 - CONCLUSION: 1. Bilateral simple renal cysts. 2. Incidental note is evidence of cholelithiasis. 3. No hydronephrosis. Kolby Kay MD Chest X-Ray 07/14/16 0000 Signed Impressions: Service Date/Time: Thursday, July 14, 2016 14:47 - CONCLUSION: 1. Cardiomegaly with left basilar density likely atelectasis. Kolby Kay MD Objective Remarks GENERAL: This is a well-nourished, well-developed patient, in no apparent distress. CARDIOVASCULAR: Regular rate and rhythm without murmurs, gallops, or rubs. RESPIRATORY: Clear to auscultation. Breath sounds equal bilaterally. No wheezes , rales, or rhonchi. GASTROINTESTINAL: Abdomen soft, non-tender, nondistended. Normal active bowel sounds MUSCULOSKELETAL: Extremities without clubbing, cyanosis, or edema. NEURO: Alert & Oriented x4 to person, place, time, situation. Moves all ext x4 : marked scrotal edema A/P Problem List: (1) Bacteremia due to Gram-negative bacteria Status: Acute Plan: - comgmt with ID - zosyn, renal dosing, intermediate sensitivity ( 07/15 - 07/17/16) - levaquin q48hrs, (07/17/16 - present), next dose 07/19 - Blood Cx (07/14/16) --> serratia marcescens - Urine Cx (07/14/16) --> serratia marcescens - Repeat Blood Cx (07/16/16) --> serratia marcescens - Repeat Blood Cx (07/18/16) --> pending - leukocytosis resolved WBC 28.7 (07/14/16), WBC 12.9 (07/16/16), WBC 10.2 (& ), WBC 8.7 (07/19/16) - No fever since 12PM (07/15/16) - Case d/w Dr. Morfin (07/18/16) - anticipate d/c in 2-3 days (2) Acute renal failure superimposed on stage 4 chronic kidney disease Status: Acute Plan: Pt had right fem/pop tibial co2 angiogram with balloon angioplasty on for stenosis he was admitted on 07/04 for decompensation of diatolic chf and diuresed. meds adjusted. After his procedure pt was using norco which made him nauseated and subsequent vomiting with poor po intake. - case d/w Dr. Glover (07/19/16) - repeat BMP in AM - Creatinine improving 4.07 (07/19/16), HD now appears unlikely - Vitamin K 5mg PO (07/16/16) - INR 1.6 (07/18/16) - resume coumadin 5mg qPM - repeat INR in AM - Heparin SubQ, 07/18/16, will stop when INR is above 2 (3) Leukocytosis Status: Resolved Plan: see above (4) Constipation Status: Acute Plan: - improved - KUB --> benign - colace - enema prn (5) Diabetes mellitus Status: Chronic Plan: ssi. hold scheduled insulin (6) Diastolic dysfunction Status: Chronic Plan: hold diuretics until dehydration corrected (7) Paroxysmal atrial fibrillation Status: Chronic Plan: stable (8) PVD (peripheral vascular disease) Status: Chronic (9) HTN (hypertension) Status: Chronic Plan: see above Problem Qualifiers (1) Constipation: Qualified Code: K59.04 - Chronic idiopathic constipation (2) Diabetes mellitus: Qualified Code: E11.8 - Type 2 diabetes mellitus with complication, with long- term current use of insulin Jeremi Mercer DO Jul 19, 2016 13:56
[2016-07-19] MEDS: LACTULOSE SYRUP 20 GM/30 ML CUP PO SCH (15:01)
[2016-07-19] MEDS: LEVOFLOXACIN 250 MG TAB PO SCH (16:43)
[2016-07-19] MEDS: WARFARIN SOD 5 MG TAB PO SCH (16:43)
[2016-07-19] MEDS: ATORVASTATIN 40 MG TAB PO SCH (21:56)
[2016-07-20] VITALS (7 sets, daily range): BP systolic 110–166; BP diastolic 57–82; PULSE 74–89; RESP 18–22; TEMP 97.4–98.5; O2SAT 92–97
[2016-07-20] MEDS: HEPARIN SODIUM - SQ 10,000 UNITS/ML VIAL SQ SCH ×3 (05:50→21:46)
[2016-07-20] MEDS: SIMETHICONE 125 MG CHEWABLE TAB PO SCH ×3 (05:50→21:45)
[2016-07-20] MEDS: INSULIN ASPART SUPPLEMENTAL SCALE SQ SCH ×4 (05:52→21:47)
[2016-07-20 08:22] LABS: INTERNATIONAL NORMALIZED RATIO 1.6 RATIO; PROTHROMBIN TIME - PATIENT 18.3 SEC (9.8-11.6)
[2016-07-20 08:42] LABS: POTASSIUM 4.4 MEQ/L (3.5-5.1)
[2016-07-20] MEDS: ASPIRIN 81 MG CHEW TAB CHEW SCH (09:59)
[2016-07-20] MEDS: DOCUSATE SODIUM 100 MG CAP PO SCH ×2 (09:59→21:46)
[2016-07-20] MEDS: DILTIAZEM-CD 120 MG CAP ER PO SCH (09:59)
[2016-07-20] MEDS: LACTULOSE SYRUP 20 GM/30 ML CUP PO SCH (09:59)
[2016-07-20] MEDS: PANTOPRAZOLE SOD 40 MG DELAYED RELEASE TAB PO SCH (09:59)
--- NOTE | 2016-07-20 14:35 | HHI.NPPN ---
Subjective History of Present Illness This patient is a 76-year-old male with known history of chronic kidney disease stage IV secondary to diabetic nephropathy. Patient also has a history of a cardiomyopathy as well as congestive heart failure and previous bladder outlet obstruction. Patient was recently hospitalized with cardiac decompensation which responded well to diuresis. There was also noted episodes of acute renal insufficiency last year. At the time of discharge last admission for congestive heart failure his creatinine was 2.3 to with an estimated GFR of 28. Patient subsequently underwent a CO2 angiogram of a right femoropopliteal on July 09, 2016. He underwent a successful percutaneous angioplasty for stenosis of a vein graft. Patient however presented this admission with complaints of nausea and vomiting 48 hours. Culture and urine culture growing gram-negative rods at time of consultation. Antibiotic therapy initiated today. Patient denies shortness of breath. Interval History The patient indicated that he was feeling better today. Review of Systems General Constitutional: Chills, Fatigue Gastrointestinal Gastrointestinal: Constipation Objective Data Data 07/19/16 07/20/16 19:00 07:00 Intake Total 480 ml 240 ml Output Total 1000 ml 1300 ml Balance -520 ml -1060 ml Intake Oral 480 ml 240 ml Output Urine Total 1000 ml 1300 ml # Bowel Movements 2 Vital Signs Date Time Temp Pulse Resp B/P Pulse Ox O2 Delivery O2 Flow Rate FiO2 07/20/16 12:00 98.5 74 18 151/82 96 07/20/16 08:00 97.8 80 18 151/69 94 07/20/16 05:55 Room Air 07/20/16 04:00 97.8 89 18 118/57 92 07/20/16 00:00 98.0 77 18 110/57 97 07/19/16 20:00 97.2 79 18 129/67 97 07/19/16 17:45 96 Nasal Cannula 2.00 07/19/16 16:00 97.5 101 20 136/68 96 -: 07/19/16 0758 07/20/16 0726 Physical Exam General Appearance: No Acute Distress Pulmonary Resp Exam: Clear Bilaterally, Breath Sounds Equal, Diminished Breath Sounds Cardiology CV Exam: Normal Sinus Rhythm, Irregular Gastrointestinal/Abdomen GI Exam: Soft, Non-Tender Integumentary Skin Exam: Clear, Warm Extremeties Extremities Exam: Trace Edema (still with scrotal swelling although improved.) Neurologic Neuro Exam: Alert, Awake, Speech Clear Psychiatric Psych Exam: Appropriate Responses Assessment/Plan Discussed Condition With: Patient, Spouse, Son Problem List: (1) Acute renal insufficiency Plan: Patient's acute renal insufficiency continues to improve daily with very good urine output. Still has significant edema. Another dose of loop diuretic today. Resume torsemide tomorrow. If patient's renal function continues to improve discharge planning is clear from a renal point of view for Friday. Patient will be followed up in the office in approximately 2 weeks. Noted blood cultures up to and 16 July positive however blood cultures June 20 negative 48 hours. Hours. White count also falling. Defer antibiotics to infectious disease. Recommend adjusting antibiotics if indicated as renal function improves. Medications should be adjusted for the patient's estimated GFR if clinically indicated. Avoid agents with significant potential for nephrotoxicity possible including NSAIDs for analgesia, iodine contrast agents. Gadolinium is contraindicated if the GFR is below 30 (2) CKD (chronic kidney disease) stage 4, GFR 15-29 ml/min Plan: Secondary to diabetic nephropathy with probable superimposed hypertensive nephrosclerosis. (3) HTN (hypertension) Plan: Stable (4) Hyponatremia Plan: Secondary to impaired free water clearance related to low GFR as well as probable non-osmotic simulation of antidiuretic hormone secretion. Improving (5) Diabetes mellitus (6) Anemia of renal disease Plan: Low iron sats. Would defer Venofer infusion at the present given infection. Start ferrous fumarate. If blood cultures remain negative I believe that we will be able to give 1 dose of Venofer prior to discharge. Problem Qualifiers (1) Diabetes mellitus: Qualified Code: E11.8 - Type 2 diabetes mellitus with complication, with long- term current use of insulin Pankaj Glover MD Jul 20, 2016 14:35
[2016-07-20] MEDS: WARFARIN SOD 5 MG TAB PO SCH (15:39)
[2016-07-20] MEDS ORDERED: ETHACRYNATE SODIUM 50 MG VIAL IV PUSH ONE (16:00)
--- NOTE | 2016-07-20 17:41 | HHI.PR ---
Subjective Remarks No new complaints. Objective Vitals Vital Signs Date Time Temp Pulse Resp B/P Pulse Ox O2 Delivery O2 Flow Rate FiO2 07/20/16 16:00 93 Nasal Cannula 2.00 07/20/16 16:00 97.4 80 18 116/62 93 07/20/16 12:00 98.5 74 18 151/82 96 07/20/16 08:00 97.8 80 18 151/69 94 07/20/16 05:55 Room Air 07/20/16 04:00 97.8 89 18 118/57 92 07/20/16 00:00 98.0 77 18 110/57 97 07/19/16 20:00 97.2 79 18 129/67 97 07/19/16 17:45 96 Nasal Cannula 2.00 07/19/16 07/19/16 07/20/16 14:59 22:59 06:59 Intake Total 480 ml 240 ml Output Total 1000 ml 600 ml 700 ml Balance -520 ml -360 ml -700 ml Intake Oral 480 ml 240 ml Output Urine Total 1000 ml 600 ml 700 ml # Bowel Movements 2 Result Diagram: 07/19/16 0758 07/20/16 0726 Imaging Last Impressions Abdomen X-Ray 07/15/16 0600 Signed Impressions: Service Date/Time: Friday, July 15, 2016 05:28 - CONCLUSION: 1. Mild ileus. Alpesh Stokes MD Renal Ultrasound 07/14/16 0000 Signed Impressions: Service Date/Time: Thursday, July 14, 2016 17:36 - CONCLUSION: 1. Bilateral simple renal cysts. 2. Incidental note is evidence of cholelithiasis. 3. No hydronephrosis. Kolby Kay MD Chest X-Ray 07/14/16 0000 Signed Impressions: Service Date/Time: Thursday, July 14, 2016 14:47 - CONCLUSION: 1. Cardiomegaly with left basilar density likely atelectasis. Kolby Kay MD Objective Remarks GENERAL: This is a well-nourished, well-developed patient, in no apparent distress. CARDIOVASCULAR: Regular rate and rhythm without murmurs, gallops, or rubs. RESPIRATORY: Clear to auscultation. Breath sounds equal bilaterally. No wheezes , rales, or rhonchi. GASTROINTESTINAL: Abdomen soft, non-tender, nondistended. Normal active bowel sounds MUSCULOSKELETAL: Extremities without clubbing, cyanosis, or edema. NEURO: Alert & Oriented x4 to person, place, time, situation. Moves all ext x4 : marked scrotal edema A/P Problem List: (1) Bacteremia due to Gram-negative bacteria Status: Acute Plan: - comgmt with ID - zosyn, renal dosing, intermediate sensitivity ( 07/15 - 07/17/16) - levaquin q48hrs, (07/17/16 - present), next dose 07/21 - Blood Cx (07/14/16) --> serratia marcescens - Urine Cx (07/14/16) --> serratia marcescens - Repeat Blood Cx (07/16/16) --> serratia marcescens - Repeat Blood Cx (07/18/16) --> No growth x 2 days - leukocytosis resolved WBC 28.7 (07/14/16), WBC 12.9 (07/16/16), WBC 10.2 (& ), WBC 8.7 (07/19/16) - No fever since 12PM (07/15/16) - Case d/w Dr. Morfin (07/18/16) - anticipate d/c in 1-2 days (2) Acute renal failure superimposed on stage 4 chronic kidney disease Status: Acute Plan: Pt had right fem/pop tibial co2 angiogram with balloon angioplasty on for stenosis he was admitted on 07/04 for decompensation of diatolic chf and diuresed. meds adjusted. After his procedure pt was using norco which made him nauseated and subsequent vomiting with poor po intake. - case d/w Dr. Glover (07/19/16) - repeat BMP in AM - Creatinine improving 4.07 (07/19/16), HD now appears unlikely - Vitamin K 5mg PO (07/16/16) - INR 1.6 (07/20/16) - coumadin 5mg qPM - repeat INR in AM - Pt received dose of ethacrynic acid (07/20/16) - torsemide to resume at 20mg daily (07/21/16) - Heparin SubQ, 07/18/16, will stop when INR is above 2 (3) Leukocytosis Status: Resolved Plan: see above (4) Constipation Status: Acute Plan: - improved - KUB --> benign - colace - enema prn (5) Diabetes mellitus Status: Chronic Plan: ssi. hold scheduled insulin (6) Diastolic dysfunction Status: Chronic Plan: - see above (7) Paroxysmal atrial fibrillation Status: Chronic Plan: stable (8) PVD (peripheral vascular disease) Status: Chronic (9) HTN (hypertension) Status: Chronic Plan: see above Problem Qualifiers (1) Constipation: Qualified Code: K59.04 - Chronic idiopathic constipation (2) Diabetes mellitus: Qualified Code: E11.8 - Type 2 diabetes mellitus with complication, with long- term current use of insulin Jeremi Mercer DO Jul 20, 2016 17:41
[2016-07-20] MEDS: MORPHINE SULFATE 4 MG/ML INJ IV PUSH PRN (17:53)
[2016-07-20] MEDS: ATORVASTATIN 40 MG TAB PO SCH (21:46)
[2016-07-20] MEDS: FERROUS FUMARATE 325 MG TAB (106 MG ELEMENTAL IRON) PO SCH (21:46)
[2016-07-21] VITALS: BP 131/64; PULSE 79; RESP 20; TEMP 97.8; O2SAT 94
[2016-07-21] MEDS: MORPHINE SULFATE 4 MG/ML INJ IV PUSH PRN (03:39)
[2016-07-21 04:00] VITALS: BP 182/86; PULSE 97; RESP 22; TEMP 97.8; O2SAT 93
[2016-07-21] MEDS: HEPARIN SODIUM - SQ 10,000 UNITS/ML VIAL SQ SCH ×3 (05:26→20:45)
[2016-07-21] MEDS: SIMETHICONE 125 MG CHEWABLE TAB PO SCH ×3 (05:26→20:45)
[2016-07-21] MEDS: INSULIN ASPART SUPPLEMENTAL SCALE SQ SCH ×4 (05:29→20:45)
[2016-07-21 08:00] VITALS: BP 144/81; PULSE 83; RESP 18; TEMP 98; O2SAT 94
[2016-07-21] MEDS: DILTIAZEM-CD 120 MG CAP ER PO SCH (08:53)
[2016-07-21] MEDS: LACTULOSE SYRUP 20 GM/30 ML CUP PO SCH (08:53)
[2016-07-21] MEDS: PANTOPRAZOLE SOD 40 MG DELAYED RELEASE TAB PO SCH (08:53)
[2016-07-21] MEDS: DOCUSATE SODIUM 100 MG CAP PO SCH ×2 (08:53→20:45)
[2016-07-21] MEDS: ASPIRIN 81 MG CHEW TAB CHEW SCH (08:53)
[2016-07-21] MEDS ORDERED: TORSEMIDE 20 MG TAB PO SCH (09:00)
[2016-07-21 09:02] LABS: INTERNATIONAL NORMALIZED RATIO 1.7 RATIO; PROTHROMBIN TIME - PATIENT 18.7 SEC (9.8-11.6)
[2016-07-21 09:22] LABS: POTASSIUM 4.1 MEQ/L (3.5-5.1)
[2016-07-21 12:00] VITALS: BP 168/91; PULSE 83; RESP 18; TEMP 97.8; O2SAT 93
[2016-07-21] MEDS ORDERED: LEVA250T PO (13:45)
--- NOTE | 2016-07-21 13:48 | HHI.FF ---
Face to Face Verification Diagnosis: (1) Acute renal failure superimposed on stage 4 chronic kidney disease (2) Bacteremia due to Gram-negative bacteria (3) Leukocytosis (4) Constipation (5) Anemia of renal disease (6) Diabetes mellitus (7) Diastolic dysfunction (8) HTN (hypertension) (9) PVD (peripheral vascular disease) (10) Paroxysmal atrial fibrillation Physical Therapy Order: Evaluate and Treat, Improve ambulation, Strength and gait training Home Health Nursing Order: Medical education Signs/symptoms of disease process Diabetic education CHF education Oxygen administration education Medication education-adverse effect Nursing assessment with vital signs I have seen patient Reid Kruger on 07/21/16. My clinical findings support the need for the requested home health care services because: Ltd mobility - disease progression Patient has SOB Deconditioned w/ increased weakness Med compliance is questionable Limited ability to care for self Need for psychosocial assistance I certify that my clinical findings support that this patient is homebound because: Impaired cognitive ability/safety Unsteady gait/balance Unsafe to leave home unassisted Need for psychosocial assistance Unable to use public transportation Poor cardiac reserve Jeremi Mercer DO Jul 21, 2016 13:48
[2016-07-21] MEDS ORDERED: OXYGENTANK NAS.CANULA (13:49)
--- NOTE | 2016-07-21 13:57 | HHI.DS ---
Discharge Summary Admission Date Jul 14, 2016 at 15:42 Discharge Date: Jul 21, 2016 Admitting Diagnosis acute on CRF,dehydration,hypernatremia,gen weakness (1) Bacteremia due to Gram-negative bacteria Diagnosis: Principal (2) Acute renal failure superimposed on stage 4 chronic kidney disease Diagnosis: Principal (3) Leukocytosis Diagnosis: Principal (4) Constipation Diagnosis: Principal (5) Diabetes mellitus Diagnosis: Secondary (6) Diastolic dysfunction Diagnosis: Secondary (7) Paroxysmal atrial fibrillation Diagnosis: Secondary (8) PVD (peripheral vascular disease) Diagnosis: Secondary (9) HTN (hypertension) Diagnosis: Secondary Consultants Dr. Carlos Alberto Glover, Nephrology Dr. Rob Morfin, Infectious Disease Brief History Mr. Kruger is a76 y/o male with dm2, pad, left bka,htn, pafib, ckd 4 . Pt was admitted to [facility] [place] [facility] on 07/04/16 for elective CO2 angiography and potential endovascular intervention with Dr. Page for restenosis of the right popliteal anastomosis and potentially failing bypass graft. When the pt arrived he has been having progressive shortness of breath over the course of the past few weeks. He has had significant weight gain and has been unable to lie flat at night. He had been sleeping in a chair. Previous 2D echo (06/13/16) noted preserved EF 55-60%, grade 1 diastolic dysfunction, mild to moderate mitral regurg, and pulmonary HTN with RSVP 56mmHg. The procedure was held and pt medication was adjusted and he was diuresed. Pt was discharged and the readmitted for the procedure this past week on Friday. says he was discharged Friday and the started taking norco on Friday. That's when he developed significant nausea and vomiting. unable to hold down any food past 48hrs. he had alot of swelling of lower abdomen and groin area but now better. CBC/BMP: 07/19/16 0758 07/21/16 0747 Significant Findings Laboratory Tests Test 07/19/16 07/20/16 07/21/16 07:58 07:26 07:47 Red Blood Count 2.77 MIL/MM3 (4.50-5.90) Hemoglobin 8.7 GM/DL (13.0-17.0) Hematocrit 26.7 % (39.0-51.0) Sodium Level 133 MEQ/L 135 MEQ/L (136-145) (136-145) Blood Urea Nitrogen 76 MG/DL (7-18) 68 MG/DL (7-18) 61 MG/DL (7-18) Creatinine 4.07 MG/DL 3.32 MG/DL 2.50 MG/DL (0.60-1.30) (0.60-1.30) (0.60-1.30) Estimat Glomerular Filtration 14 ML/MIN (>89) 18 ML/MIN (>89) 25 ML/MIN (>89) Rate Random Glucose 130 MG/DL 155 MG/DL 156 MG/DL (74-106) (74-106) (74-106) Calcium Level 8.0 MG/DL 7.9 MG/DL 8.4 MG/DL (8.5-10.1) (8.5-10.1) (8.5-10.1) Albumin 2.3 GM/DL 2.2 GM/DL (3.4-5.0) (3.4-5.0) Prothrombin Time 18.3 SEC 18.7 SEC (9.8-11.6) (9.8-11.6) Imaging Last Impressions Chest X-Ray 07/17/16 0000 Signed Impressions: Service Date/Time: Sunday, July 17, 2016 13:10 - CONCLUSION: Cardiomegaly and minimal left basilar atelectasis.. Kolby Kay MD Abdomen X-Ray 07/17/16 0000 Signed Impressions: Service Date/Time: Sunday, July 17, 2016 13:13 - CONCLUSION: Benign-appearing KUB. Bimal Snyder MD Renal Ultrasound 07/14/16 0000 Signed Impressions: Service Date/Time: Thursday, July 14, 2016 17:36 - CONCLUSION: 1. Bilateral simple renal cysts. 2. Incidental note is evidence of cholelithiasis. 3. No hydronephrosis. Kolby Kay MD PE at Discharge GENERAL: This is a well-nourished, well-developed patient, in no apparent distress. CARDIOVASCULAR: Regular rate and rhythm without murmurs, gallops, or rubs. RESPIRATORY: Clear to auscultation. Breath sounds equal bilaterally. No wheezes , rales, or rhonchi. GASTROINTESTINAL: Abdomen soft, non-tender, nondistended. Normal active bowel sounds MUSCULOSKELETAL: Extremities without clubbing, cyanosis, or edema. NEURO: Alert & Oriented x4 to person, place, time, situation. Moves all ext x4 : marked scrotal edema Hospital Course (1) Bacteremia due to Gram-negative bacteria Status: Acute Plan: - comgmt with ID - zosyn, renal dosing, intermediate sensitivity ( 07/15 - 07/17/16) - levaquin q48hrs, (07/17/16 - present), next dose 07/21 - will continue levaquin upon discharge daily now that renal function improving x 7days - Blood Cx (07/14/16) --> serratia marcescens - Urine Cx (07/14/16) --> serratia marcescens - Repeat Blood Cx (07/16/16) --> serratia marcescens - Repeat Blood Cx (07/18/16) --> No growth x 3 days - leukocytosis resolved WBC 28.7 (07/14/16), WBC 12.9 (07/16/16), WBC 10.2 (& ), WBC 8.7 (07/19/16) - No fever since 12PM (07/15/16) - Case d/w Dr. Morfin (07/18/16) - discharge to home, see orders - f/u with PCP, Dr. Billy Treviño, in 1 week. (2) Acute renal failure superimposed on stage 4 chronic kidney disease Status: Acute Plan: Pt had right fem/pop tibial co2 angiogram with balloon angioplasty on for stenosis he was admitted on 07/04 for decompensation of diatolic chf and diuresed. meds adjusted. After his procedure pt was using norco which made him nauseated and subsequent vomiting with poor po intake. - initially there was concern that pt would require starting HD - Pt made slow but gradual improvement with holding diuretics and giving IVFs - case d/w Dr. Glover (07/19/16) - Creatinine improving 4.07 (07/19/16), 2.5 (07/21/16) - Vitamin K 5mg PO (07/16/16) - INR 1.7 (07/21/16) - coumadin 5mg qPM - Pt received dose of ethacrynic acid (07/20/16) - torsemide to resume at 20mg daily (07/21/16) - INR rising, will d/c pt on home dose of coumadin 5mg nightly (3) Leukocytosis Status: Resolved Plan: see above (4) Constipation Status: Acute Plan: - improved - KUB --> benign - colace - enema prn (5) Diabetes mellitus - resume on nightly levemir upon discharge (6) Diastolic dysfunction Status: Chronic Plan: - see above (7) Paroxysmal atrial fibrillation Status: Chronic Plan: stable (8) PVD (peripheral vascular disease) Status: Chronic (9) HTN (hypertension) Status: Chronic Plan: see above Pt Condition on Discharge: Stable Discharge Disposition: Disch w/ Home Health Serv Discharge Instructions DIET: Follow Instructions for: Heart Healthy Diet, Diabetic Diet Activities you can perform: Weight Bearing as Kacy Follow up Referrals: Nephrology - [address] Carlos Alberto Glover PCP Follow-up - [address] Billy Treviño New Medications: Oxygen tank (Oxygen tank) 1 Ea Tank 2 [employer] CONTINUOUS Oxygen Concentrator Portable Gaseous 2 L/min via Nasal Cannula Continuous For 99 months HYPOXEMIA PREVENTION #1 CYLINDER Levofloxacin (Levaquin) 250 Mg Tab 250 MG PO DAILY bacteremia #7 Ref 0 TAB Continued Medications: Aspirin (Aspirin) 81 Mg Chew 81 MG CHEW DAILY Ref 0 TAB Atorvastatin (Atorvastatin) 40 Mg Tab 40 MG PO HS Cholesterol Management Ref 0 TAB Diltiazem CD 24 HR (Cardizem CD 24 HR) 120 Mg Caper 120 MG PO DAILY #30 Ref 0 CAP Gabapentin (Gabapentin) 100 Mg Cap 200 MG PO TID PRN PAIN SCALE 1 TO 10 #60 Ref 0 CAP Insulin Glargine Inj (Lantus Inj) 1,000 Unit/10 Ml Vial 12 UNITS SQ HS Blood Sugar Management Ref 0 VIAL Losartan (Cozaar) 25 Mg Tab 25 MG PO HS Blood Pressure Management Ref 0 TAB Pantoprazole (Pantoprazole) 40 Mg Tab 40 MG PO DAILY Reflux #30 Ref 0 TAB Temazepam (Restoril) 15 Mg Cap 15 MG PO HS PRN INSOMNIA #30 Ref 0 CAP Torsemide (Torsemide) 20 Mg Tab 20 MG PO DAILY IN THE MORNING #30 Ref 0 TAB Warfarin (Coumadin) 5 Mg Tab 5 MG PO HS Blood Clot Prevention #30 Ref 0 TAB Discontinued Medications: Hydralazine (Hydralazine) 100 Mg Tab 100 MG PO TID Take with meals Blood Pressure Management Ref 0 TAB Insulin Aspart Inj (Novolog Inj) 1,000 Unit/10 Ml Vial 12-15 UNITS SQ TIDAC Blood Sugar Management #10 Ref 0 ML Torsemide (Torsemide) 10 Mg Tab 10 MG PO DAILY IN THE EVENING #30 Ref 0 TAB Jeremi Mercer DO Jul 21, 2016 13:57
--- NOTE | 2016-07-21 13:59 | HHI.DCPOC ---
Discharge Care Plan Diagnosis: (1) Diastolic dysfunction (2) Acute renal failure superimposed on stage 4 chronic kidney disease (3) Bacteremia due to Gram-negative bacteria (4) Leukocytosis (5) Constipation (6) Anemia of renal disease (7) Diabetes mellitus (8) HTN (hypertension) (9) PVD (peripheral vascular disease) (10) Paroxysmal atrial fibrillation Goals to Promote Your Health * To prevent worsening of your condition and complications * To maintain your health at the optimal level Directions to Meet Your Goals Take your medications as prescribed Follow your dietary instruction Follow activity as directed Keep your appointments as scheduled Take your immunizations and boosters as scheduled If your symptoms worsen call your PCP, if no PCP go to Urgent Care Center or Emergency Room Smoking is Dangerous to Your Health. Avoid second hand smoke Call the 24-hour hour crisis hotline for domestic abuse at Jeremi Mercer DO Jul 21, 2016 13:59
[2016-07-21 16:00] VITALS: BP 157/76; PULSE 78; RESP 18; TEMP 97.8; O2SAT 97
[2016-07-21] MEDS: LEVOFLOXACIN 250 MG TAB PO SCH (16:00)
[2016-07-21] MEDS: WARFARIN SOD 5 MG TAB PO SCH (16:00)
[2016-07-21 20:00] VITALS: BP 151/89; PULSE 91; RESP 16; TEMP 99.3; O2SAT 100
[2016-07-21] MEDS: FERROUS FUMARATE 325 MG TAB (106 MG ELEMENTAL IRON) PO SCH (20:45)
[2016-07-21] MEDS: ATORVASTATIN 40 MG TAB PO SCH (20:45)
--- NOTE | 2016-07-29 09:33 | PQ ---
Physician Query Response Document PATIENT: SHAGGY RED : 1940 ADMIT DATE: 07/14/2016 3:42 PM DISCH DATE: 07/21/2016 10:24 PM RESPONDING PROVIDER #: Eschwart QUERY TEXT: Sepsis Query Based on your medical judgement, can you further clarify the folowiin. Sepsis (SIRS due to an infection) 2. Sepsis with Organ Dysfunction 3. A localized Infection only 4. Another condition - please specify 5. Unable to determine - please explain. Depending on your selection above, please indicate one of the below if applicable: - Sepsis was present on Admission - Sepsis developed after admission The patient's Clinical Indicators include: VS T 97.5 HR 100 RR 24 BP 113/63 SAT 87% WBC 28.7 NEUTROPHILS 11 adm w n/v abdominal distension Bacteremia due to Gram-negative bacteria and urine with gram negative rods Cardiomegaly with left bsilar density likely atelectasis Query created by: Katalina Allison on 07/16/2016 8:47 AM RESPONSE TEXT: I agree. We can diagnosis this pt with sepsis due to bacteremia with organ dysfunction. Pt had associ ated acute on chronic kidney failure d/t his infection. Electronically signed by: Jeremi Mercer DO 07/29/2016 9:29 AM
== END 2016-07-21 22:24 | disposition home or self-care (01) | DRG 871 ==
LOC: NEPC 12:02 → NEDA 15:42 → N04B 18:56
PROVIDERS: ADMIT Hospitalist; ATTEND Hospitalist
DX: A41.53 Sepsis due to Serratia (principal); G93.41 Metabolic encephalopathy; N17.0 Acute kidney failure with tubular necrosis; E87.0 Hyperosmolality and hypernatremia; E11.22 Type 2 diabetes mellitus with diabetic chronic kidney disease; I27.2 Other secondary pulmonary hypertension; N18.4 Chronic kidney disease, stage 4 (severe); I48.0 Paroxysmal atrial fibrillation; I13.0 Hypertensive heart and chronic kidney disease with heart failure and stage 1 through stage 4 chronic kidney disease, or unspecified chronic kidney disease; I50.32 Chronic diastolic (congestive) heart failure; E86.0 Dehydration; N39.0 Urinary tract infection, site not specified; R65.20 Severe sepsis without septic shock; Z89.612 Acquired absence of left leg above knee; I08.1 Rheumatic disorders of both mitral and tricuspid valves; E78.5 Hyperlipidemia, unspecified; H40.1190 Primary open-angle glaucoma, unspecified eye, stage unspecified; I25.10 Atherosclerotic heart disease of native coronary artery without angina pectoris; I73.9 Peripheral vascular disease, unspecified; K59.04 Chronic idiopathic constipation; Z95.5 Presence of coronary angioplasty implant and graft; Z79.01 Long term (current) use of anticoagulants; N40.0 Benign prostatic hyperplasia without lower urinary tract symptoms; K21.9 Gastro-esophageal reflux disease without esophagitis; Z87.891 Personal history of nicotine dependence; D63.1 Anemia in chronic kidney disease; B96.89 Other specified bacterial agents as the cause of diseases classified elsewhere; Z79.4 Long term (current) use of insulin
CPT/HCPCS: 71010; 74000; 76775; 80048; 80053; 80069; 81001; 82306; 82728; 82948; 83540; 83550; 83605; 83690; 83735; 83970; 84155; 85007; 85025; 85027; 85610; 87040; 87077; 87086; 87186; 87205; 93005; 94620; 96374; C9113; J1644; J1815; J2270; J2405; J2543; J7030

== ENCOUNTER → 2017-08-14 | Outpatient (CLI) | payer MEDICARE ==
[~2017-08-14] MED LIST changes: +ASPI-516 CHEW; -ASPI81CH CHEW; +CALC1CAP PO; +CARD120C4 PO; +CHLORHEXIDINE GLUCONATE 2 % 1 PACK (2 CLOTHS) TOPICAL PRN; +INSULIN HUMAN REGULAR 1,000 UNITS/10 ML VIAL SQ PRN; +ISOS10TA3 PO; +LACTATED RINGER'S 1000 ML IV PRN; +METO25TA3 PO; +METOPROLOL TARTRATE 25 MG TAB PO PRN; -NOVOLOGP2 SQ; +OXYGENTANK NAS.CANULA; +PANT40TA3 PO; +POVIDONE IODINE 5% (ANTISEPSIS KIT) 4 APPLICATIONS EACH NARE PRN; +RENATAB5 PO; +REST15CA PO; +SODIUM CHLORID 0.9% 500 ML IV PRN; +TORS20TA PO
[2017-08-14 11:37] LABS: INTERNATIONAL NORMALIZED RATIO 1.4 RATIO; PROTHROMBIN TIME - PATIENT 13.8 SEC (9.8-11.6)
--- NOTE | 2017-08-14 12:26 | PD.PROCEDR ---
GI Procedure PROCEDURE PERFORMED EGD with biopsy INDICATION FOR PROCEDURE Anemia, guaiac positive stool PROCEDURE: The procedure, risks and benefits were discussed with Ms. Gage and informed consent was obtained. Anesthesia sedated her with Diprivan. She was placed in the left lateral decubitus position. EGD: The Pentax videoscope was introduced through the oropharynx and advanced to the second portion of the duodenum under direct visualization. Retroflexion was performed in the stomach. FINDINGS: The esophagus this was normal The stomach there was some patchy and punctate erythema in the antrum and gastric body with some mild edema minor erosions in the antrum no visible ulcerations no blood or bleeding no visible vessels antral biopsies were taken for further evaluation The duodenum was normal ESTIMATED BLOOD LOSS: None SPECIMENS REMOVED: Antral biopsy COMPLICATIONS: None IMPRESSION: Mild erosive gastritis PLAN: Await biopsies Recommend Protonix 40 mg p.o. q. other day Monitor labs Follow-up as needed Sander Alex MD Aug 14, 2017 12:26
[2017-08-14 12:40] VITALS: BP 165/98; PULSE 85; RESP 20; TEMP 98.3; O2SAT 94
--- NOTE | 2017-08-15 11:40 | EKG ---
Date Performed: 08/14/2017 Time Performed: 10:07:59 PTAGE: 77 years EKG: ATRIAL FIBRILLATION ABNORMAL RHYTHM ECG PREVIOUS TRACING : 07/14/2016 12.25 Since the previous tracing, no significant change noted DOCTOR: Mihai Pierson Interpretating Date/Time 08/15/2017 11:33:41
== END ==
LOC: HSDC 09:25
PROVIDERS: ATTEND Internal Medicine Gastroenterology
DX: D64.9 Anemia, unspecified (principal); K92.1 Melena; K29.60 Other gastritis without bleeding; I48.91 Unspecified atrial fibrillation
CPT/HCPCS: 84132; 85610; 88305; 93005